=== PATIENT | male | born 1960 | race American Indian/Alaskan Native ===

== ENCOUNTER 2021-05-23 12:27 | Inpatient (IN) | payer SELFPAY ==
[2021-05-23] MEDS ORDERED: ASPIRIN 325 MG TAB PO ONE (13:05)
[2021-05-23] MEDS ORDERED: NITROGLYCERIN 0.4 MG TAB SUBL SL ONE (13:05)
[2021-05-23] MEDS ORDERED: MORPHINE 4 MG/1 ML INJ IV ONE (13:06)
[2021-05-23] MEDS ORDERED: ONDANSETRON 4 MG/2 ML INJ IV ONE (13:06)
[2021-05-23] MEDS ORDERED: PANTOPRAZOLE 40 MG INJ IV ONE (13:06)
--- NOTE | 2021-05-23 13:09 | Emergency Department Report ---
ED Chest Pain HPI - General Chief Complaint: Chest Pain Stated Complaint: CHEST PAIN PUI?: Yes Time Seen by Provider: 05/23/21 12:59 Source: patient, RN notes reviewed, old records reviewed Mode of arrival: Ambulatory Limitations: No Limitations - History of Present Illness Initial Comments: The patient was evaluated in the emergency department for symptoms described in the history of present illness. He/she was evaluated in the context of the global COVID-19 pandemic, which necessitated consideration that the patient might be at risk for infection with the virus that causes COVID-19. Institutional protocols and algorithms that pertain to the evaluation of patients at risk for COVID-19 are in a state of rapid change based on information released by regulatory bodies including the CDC and federal and state organizations. These policies and algorithms were followed during the patient's care in the emergency department. Please note that these policies, procedures and recommendations changed on a rapid basis. The patient is a 60-year-old gentleman. He is not known to myself previously. He typically follows at [place]. His past medical history includes hypertension, heart disease with stent, on aspirin and Plavix, he is COVID-19 vaccinated. He presents to the ER today with sudden onset nontraumatic central, and right-sided chest pain, associate with shortness of breath, nausea and diaphoresis. He denies travel, surgery, immobilization, DVT/PE risk factors. He states his pain "feels just like my last heart attack." The patient denies loss of taste and smell. He has chronic 4 pillow orthopnea. Symptoms have been going on for the past 2 to 3 hours. He denies taking erectile dysfunction medication. He felt improved with rest and position MD Complaint: chest pain -: Sudden, hour(s) Onset: other (Associated with sexual activity) Pain Location: substernal, right chest Pain Radiation: back Severity scale (0 -10): 10 Quality: similar to prior CA Consistency: constant Improves With: rest Worsens With: movement Treatments Prior to Arrival: aspirin Aspirin use within the Past 7 Days: (1) Yes - Related Data On Oral Contraceptives: No Home Medications Medication Instructions Recorded Confirmed Last Taken Atorvastatin Calcium [Lipitor] 80 mg PO DAILY 05/23/21 05/24/21 Unknown Clopidogrel [Plavix] 75 mg PO QDAY 05/23/21 05/23/21 Unknown Losartan [Cozaar] 100 mg PO QDAY 05/23/21 05/23/21 Unknown Spironolactone [Aldactone] 25 mg PO QDAY 05/23/21 05/23/21 Unknown carvediloL [Coreg] 25 mg PO BID 05/23/21 05/23/21 Unknown Allergies Allergy/AdvReac Type Severity Reaction Status Date / Time No Known Allergies Allergy Verified 04/12/14 20:08 Heart Score - HEART Score History: Moderately suspicious EKG: Non-specific Age: 45-65 Risk factors: > 3 risk factors or hx of atherosclerotic disease Troponin: < normal limit HEART Score: 5 - EKG Read Time Time EKG Completed: 12:37 EKG Read Time: 12:37 - Critical Actions Critical Actions: 4-6 pts:12-16.6% risk of adverse cardiac event. Should be admitted ED Review of Systems ROS: Stated complaint: CHEST PAIN Other details as noted in HPI Constitutional: diaphoresis, malaise. denies: fever Eyes: denies: eye discharge Respiratory: shortness of breath Cardiovascular: chest pain Gastrointestinal: denies: abdominal pain, vomiting, diarrhea Musculoskeletal: back pain Neurological: headache, weakness Psychiatric: anxiety Hematological/Lymphatic: denies: easy bleeding ED Past Medical Hx - Past Medical History Hx Hypertension: Yes - Social History Smoking Status: Current Every Day Smoker Substance Use Type: Alcohol - Medications Home Medications: Home Medications Medication Instructions Recorded Confirmed Last Taken Type Atorvastatin Calcium [Lipitor] 80 mg PO DAILY 05/23/21 05/24/21 Unknown History Clopidogrel [Plavix] 75 mg PO QDAY 05/23/21 05/23/21 Unknown History Losartan [Cozaar] 100 mg PO QDAY 05/23/21 05/23/21 Unknown History Spironolactone [Aldactone] 25 mg PO QDAY 05/23/21 05/23/21 Unknown History carvediloL [Coreg] 25 mg PO BID 05/23/21 05/23/21 Unknown History ED Physical Exam - General Limitations: No Limitations, Physical Limitation General appearance: alert, anxious, in distress, obese - Head Head exam: Present: atraumatic, normocephalic - Eye Eye exam: Present: normal appearance, EOMI. Absent: nystagmus - ENT ENT exam: Present: normal exam, normal orophraynx, mucous membranes moist, normal external ear exam - Neck Neck exam: Present: normal inspection, full ROM. Absent: tenderness, meningismus - Respiratory Respiratory exam: Present: respiratory distress, rhonchi - Cardiovascular Cardiovascular Exam: Present: normal rhythm, tachycardia. Absent: bradycardia, irregular rhythm, normal heart sounds, systolic murmur, diastolic murmur, rubs, gallop - GI/Abdominal GI/Abdominal exam: Present: soft. Absent: distended, tenderness, guarding, rebound, rigid, pulsatile mass - Rectal Rectal exam: Present: deferred - Extremities Exam Extremities exam: Present: normal inspection, full ROM, other (2+ pulses noted in the bilateral upper and lower extremities. There is no palpable cord. negative Homans sign. Muscular compartments are soft. The pelvis is stable.). Absent: pedal edema, calf tenderness - Back Exam Back exam: Present: normal inspection, full ROM. Absent: tenderness, CVA tenderness (R), CVA tenderness (L), paraspinal tenderness, vertebral tenderness - Neurological Exam Neurological exam: Present: alert, oriented X3, other (No facial droop. Tongue midline. Extraocular movements intact bilaterally. Facial sensation intact to light touch in V1, V2, V3 distribution bilaterally. 5 and a 5 strength in 4 extremities. Sensation intact to light touch in 4 extremities.) - Psychiatric Psychiatric exam: Present: anxious - Skin Skin exam: Present: warm, dry, intact, normal color. Absent: rash ED Course Vital Signs 05/23/21 05/23/21 05/23/21 12:31 13:33 13:42 Temperature 97.6 F Pulse Rate 114 H 91 H 88 Respiratory 18 20 14 Rate Blood Pressure Blood Pressure 211/141 175/120 [Right] O2 Sat by Pulse 92 97 97 Oximetry 05/23/21 05/23/21 05/23/21 13:45 14:01 14:15 Temperature Pulse Rate 93 H 89 94 H Respiratory 13 25 H 26 H Rate Blood Pressure 175/120 175/120 175/120 Blood Pressure [Right] O2 Sat by Pulse 96 98 98 Oximetry 05/23/21 05/23/21 05/23/21 14:31 14:33 14:39 Temperature Pulse Rate 94 H 94 H 94 H Respiratory 15 16 15 Rate Blood Pressure 152/104 152/104 Blood Pressure 152/104 [Right] O2 Sat by Pulse 96 95 Oximetry 05/23/21 05/23/21 05/23/21 14:45 15:01 15:03 Temperature Pulse Rate 85 93 H Respiratory 28 H 15 14 Rate Blood Pressure 152/104 179/118 Blood Pressure [Right] O2 Sat by Pulse 96 97 Oximetry 05/23/21 05/23/21 05/23/21 15:07 15:15 15:21 Temperature Pulse Rate 94 H 89 88 Respiratory 17 14 Rate Blood Pressure 152/104 179/118 Blood Pressure 175/112 [Right] O2 Sat by Pulse 95 100 Oximetry 05/23/21 05/23/21 05/23/21 15:31 15:45 16:01 Temperature Pulse Rate 90 88 85 Respiratory 19 24 23 Rate Blood Pressure 178/133 178/133 153/102 Blood Pressure [Right] O2 Sat by Pulse 96 97 94 Oximetry 05/23/21 05/23/21 05/23/21 16:15 16:31 16:45 Temperature Pulse Rate 81 71 77 Respiratory 9 L 14 20 Rate Blood Pressure 153/102 133/78 133/78 Blood Pressure [Right] O2 Sat by Pulse 97 97 96 Oximetry 05/23/21 05/23/21 05/23/21 17:01 17:06 17:15 Temperature Pulse Rate 76 74 72 Respiratory 15 14 22 Rate Blood Pressure 148/87 148/87 Blood Pressure 148/87 [Right] O2 Sat by Pulse 96 97 95 Oximetry 05/23/21 05/23/21 05/23/21 17:31 17:45 18:01 Temperature Pulse Rate 79 Respiratory 15 22 10 L Rate Blood Pressure 146/86 146/86 162/118 Blood Pressure [Right] O2 Sat by Pulse 98 96 97 Oximetry 05/23/21 05/23/21 05/23/21 18:15 18:31 19:59 Temperature Pulse Rate Respiratory 14 24 Rate Blood Pressure 162/118 136/82 136/82 Blood Pressure [Right] O2 Sat by Pulse 95 96 100 Oximetry 05/23/21 05/23/21 05/23/21 20:01 20:11 20:21 Temperature Pulse Rate 76 Respiratory 14 Rate Blood Pressure 153/84 153/84 153/84 Blood Pressure 153/84 [Right] O2 Sat by Pulse 97 99 99 Oximetry 05/23/21 05/23/21 05/23/21 20:31 20:41 20:51 Temperature Pulse Rate Respiratory Rate Blood Pressure 151/92 151/92 151/92 Blood Pressure [Right] O2 Sat by Pulse 99 99 98 Oximetry 05/23/21 05/23/21 05/23/21 21:01 21:11 21:21 Temperature Pulse Rate Respiratory Rate Blood Pressure 145/86 145/86 145/86 Blood Pressure [Right] O2 Sat by Pulse 98 98 97 Oximetry 05/23/21 05/23/21 05/23/21 21:31 21:41 21:51 Temperature Pulse Rate Respiratory Rate Blood Pressure 152/85 152/85 152/85 Blood Pressure [Right] O2 Sat by Pulse 99 99 98 Oximetry 05/23/21 05/23/21 22:01 22:10 Temperature Pulse Rate Respiratory Rate Blood Pressure 147/90 147/90 Blood Pressure [Right] O2 Sat by Pulse 98 98 Oximetry - Reevaluation(s) Reevaluation #1: 05/23/21 14:10 Differential diagnosis, including but not limited to: Acute coronary syndrome, flash pulmonary edema, acute coronary syndrome, flash pulmonary edema, hypertensive emergency/urgency, pneumonia, COVID-19, pericarditis, myocarditis Assessment and plan: 60-year-old gentleman, who denies DVT/PE risk factors, who is low risk by Wells criteria for pulmonary embolism, with acute chest pain, shortness of breath, states this is similar to prior CA. Patient is found to be hypoxic, and has crackles and rales. Initially very concern for flash pulmonary edema, given hypertension and the aforementioned. He is brought back to room 8 immediately. X-ray the chest more suggestive of pneumonia rather than congestive heart failure. In addition, the patient's blood pressure is improved, now 175/120 systolic. His O2 sat is improved. His EKG is abnormal, but not consistent with a STEMI. Patient's EKG from today, and prior EKG are transmitted to our health careers instructor, Dr. Hirsch, who also has personally evaluated these EKGs, and we are in agreement that this patient does not require emergency activation a cardiac catheterization lab. Given hypoxia, hypertension, chest pain, multiple medical comorbidities, patient will have a COVID work-up/rule out, in addition to being treated for hypertensive emergency, acute chest pain, and presumed community-acquired pneumonia. Hydralazine for blood pressure, aspirin, as needed nitroglycerin, ceftriaxone, azithromycin, steroids, plan to admit this patient to the medical service for supportive care, once initial diagnostics have resulted. I discussed this plan of care with the patient. He is agreeable to the plan of care 05/23/21 17:47 Admitted to the medical service under the care of Dr. Duque. BECKA score - Becka Score Age > 65: (0) No Aspirin use within the Past 7 Days: (1) Yes 3 or more CAD Risk Factors: (1) Yes 2 or more Angina events in past 24 hrs: (1) Yes Known CAD with more than 50% Stenosis: (0) No Elevated Cardiac Markers: (0) No ST Deviation Greater than 0.5mm: (0) No BECKA Score: 3 ED Medical Decision Making - Lab Data Result diagrams: 05/24/21 08:00 05/24/21 07:41 Vital Signs 05/23/21 05/23/21 05/23/21 12:31 13:33 13:42 Temperature 97.6 F Pulse Rate 114 H 91 H 88 Respiratory 18 20 14 Rate Blood Pressure 211/141 175/120 [Right] O2 Sat by Pulse 92 97 97 Oximetry Lab Results 05/23/21 05/23/21 05/23/21 Range/Units 13:05 13:05 13:05 WBC 5.8 (4.5-11.0) K/mm3 RBC 5.18 H (3.65-5.03) M/mm3 Hgb 15.1 (11.8-15.2) gm/dl Hct 46.4 H (35.5-45.6) % MCV 90 (84-94) fl MCH 29 (28-32) pg MCHC 33 (32-34) % RDW 13.9 (13.2-15.2) % Plt Count 157 (140-440) K/mm3 Lymph % (Auto) 21.0 (13.4-35.0) % Creek % (Auto) 7.9 H (0.0-7.3) % Eos % (Auto) 3.3 (0.0-4.3) % Baso % (Auto) 1.0 (0.0-1.8) % Lymph # (Auto) 1.2 (1.2-5.4) K/mm3 Creek # (Auto) 0.5 (0.0-0.8) K/mm3 Eos # (Auto) 0.2 (0.0-0.4) K/mm3 Baso # (Auto) 0.1 (0.0-0.1) K/mm3 Seg Neutrophils % 66.8 (40.0-70.0) % Seg Neutrophils # 3.9 (1.8-7.7) K/mm3 PT 12.7 (12.2-14.9) Sec. INR 0.86 L (0.87-1.13) D-Dimer 421.90 H (0-234) ng/mlDDU Sodium 145 (137-145) mmol/L Potassium 4.2 (3.6-5.0) mmol/L Chloride 108.0 H (98-107) mmol/L Carbon Dioxide 27 (22-30) mmol/L Anion Gap 14 mmol/L BUN 17 (9-20) mg/dL Creatinine 1.3 (0.8-1.3) mg/dL Estimated GFR > 60 ml/min BUN/Creatinine Ratio 13 % Glucose 99 (75-100) mg/dL Calcium 9.8 (8.4-10.2) mg/dL Magnesium (1.7-2.3) mg/dL Total Bilirubin 0.80 (0.1-1.2) mg/dL AST 18 (5-40) units/L ALT 25 (7-56) units/L Alkaline Phosphatase 70 (35-129) units/L Lactate Dehydrogenase 188 H (91-180) units/L Total Creatine Kinase (55-170) units/L Troponin T < 0.010 (0.00-0.029) ng/mL C-Reactive Protein 0.10 (0.00-1.30) mg/dL NT-Pro-B Natriuret Pep (0-900) pg/mL Total Protein 8.0 (6.3-8.2) g/dL Albumin 4.4 (3.9-5) g/dL Albumin/Globulin Ratio 1.2 % 05/23/21 Range/Units 13:06 WBC (4.5-11.0) K/mm3 RBC (3.65-5.03) M/mm3 Hgb (11.8-15.2) gm/dl Hct (35.5-45.6) % MCV (84-94) fl MCH (28-32) pg MCHC (32-34) % RDW (13.2-15.2) % Plt Count (140-440) K/mm3 Lymph % (Auto) (13.4-35.0) % Creek % (Auto) (0.0-7.3) % Eos % (Auto) (0.0-4.3) % Baso % (Auto) (0.0-1.8) % Lymph # (Auto) (1.2-5.4) K/mm3 Creek # (Auto) (0.0-0.8) K/mm3 Eos # (Auto) (0.0-0.4) K/mm3 Baso # (Auto) (0.0-0.1) K/mm3 Seg Neutrophils % (40.0-70.0) % Seg Neutrophils # (1.8-7.7) K/mm3 PT (12.2-14.9) Sec. INR (0.87-1.13) D-Dimer (0-234) ng/mlDDU Sodium (137-145) mmol/L Potassium (3.6-5.0) mmol/L Chloride (98-107) mmol/L Carbon Dioxide (22-30) mmol/L Anion Gap mmol/L BUN (9-20) mg/dL Creatinine (0.8-1.3) mg/dL Estimated GFR ml/min BUN/Creatinine Ratio % Glucose (75-100) mg/dL Calcium (8.4-10.2) mg/dL Magnesium 1.80 (1.7-2.3) mg/dL Total Bilirubin (0.1-1.2) mg/dL AST (5-40) units/L ALT (7-56) units/L Alkaline Phosphatase (35-129) units/L Lactate Dehydrogenase (91-180) units/L Total Creatine Kinase 192 H (55-170) units/L Troponin T (0.00-0.029) ng/mL C-Reactive Protein (0.00-1.30) mg/dL NT-Pro-B Natriuret Pep 1272 H (0-900) pg/mL Total Protein (6.3-8.2) g/dL Albumin (3.9-5) g/dL Albumin/Globulin Ratio % - EKG Data -: EKG Interpreted by Mo EKG shows normal: sinus rhythm Rate: normal - EKG Data 05/23/21 14:10 The EKG is interpreted at 12: 37 Sinus rhythm, rate 103 bpm, tachycardia. Left axis deviation. QTc 427 ms. Left ventricular hypertrophy. Motion artifact. Q waves noted in the inferior leads. When compared to prior EKG from 2013, left axis deviation appears to be new. Poor R wave progression appears to be chronic. EKG today is not a STEMI. - Radiology Data Radiology results: report reviewed, image reviewed CHEST 2 VIEWS INDICATION: Chest Pain. COMPARISON: 9. FINDINGS: Support devices: None. Heart: Within normal limits. Lungs/Pleura: Infiltrate at the right mid/lower zone. No significant pleural effusion. IMPRESSION: Right-sided pneumonia. Signer Name: Clifton Cole MD Signed: 05/23/2021 12:22 PM Workstation Name: [id number] Critical care attestation.: If time is entered above; I have spent that time in minutes in the direct care of this critically ill patient, excluding procedure time. ED Disposition Clinical Impression: Acute chest pain, Hypertensive urgency, Suspected COVID-19 virus infection, Pul monary infiltrate Disposition: ADMITTED INPATIENT Is pt being admited?: Yes Does the pt Need Aspirin: No Condition: Good
--- NOTE | 2021-05-23 13:26 | XRay Report ---
CHEST 2 VIEWS INDICATION: Chest Pain. COMPARISON: 9. FINDINGS: Support devices: None. Heart: Within normal limits. Lungs/Pleura: Infiltrate at the right mid/lower zone. No significant pleural effusion. IMPRESSION: Right-sided pneumonia. Signer Name: Clifton Cole MD Signed: 05/23/2021 1:22 PM Workstation Name: [id number]
[2021-05-23] MEDS ORDERED: AZITHROMYCIN/NS 500 MG/250 ML 500 MG/250 ML BAG IV ONE (13:44)
[2021-05-23] MEDS ORDERED: dexAMETHasone 4 MG/ML VIAL IV ONE (13:44)
[2021-05-23] MEDS ORDERED: cefTRIAXone/NS 1 GM/50 ML 1 GM/50 ML BAG IV ONE (13:44)
[2021-05-23] MEDS ORDERED: hydrALAZINE 20 MG/1 ML INJ IV ONE (13:51)
[2021-05-23] MEDS ORDERED: NITROGLYCERIN DRIP 50 MG/250 ML BOTTLE IV SCH (14:00)
[2021-05-23 14:03] LABS: Basophils # (Auto) 0.1 K/mm3 (0.0-0.1); Eosinophils # (Auto) 0.2 K/mm3 (0.0-0.4); Eosinophils % (Auto) 3.3 % (0.0-4.3); Hematocrit 46.4 % (35.5-45.6); Hemoglobin 15.1 gm/dl (11.8-15.2); Lymphocytes # (Auto) 1.2 K/mm3 (1.2-5.4); Mean Corpuscular HGB Conc 33 % (32-34); Mean Corpuscular Volume 90 fl (84-94); Monocytes # (Auto) 0.5 K/mm3 (0.0-0.8); Monocytes % (Auto) 7.9 % (0.0-7.3); Platelet Count 157 K/mm3 (140-440); Red Blood Count 5.18 M/mm3 (3.65-5.03); Red Cell Distribution Width 13.9 % (13.2-15.2)
[2021-05-23] MEDS ORDERED: SODIUM CHLORIDE 0.9% 500 ML 500 ML IV ONE (14:07)
[2021-05-23 14:10] LABS: INR 0.86 (0.87-1.13)
[2021-05-23 14:33] LABS: Alanine Aminotransferase 25 units/L (7-56); Albumin 4.4 g/dL (3.9-5); BUN/Creatinine Ratio 13; Blood Urea Nitrogen 17 mg/dL (9-20); Calcium 9.8 mg/dL (8.4-10.2); Hemolysis Index 7
[2021-05-23] MEDS ORDERED: ACETAMINOPHEN 325 MG TAB PO PRN (18:33)
[2021-05-23] MEDS ORDERED: oxyCODONE /ACETAMINOPHEN 5-325MG TAB PO PRN (18:33)
[2021-05-23] MEDS ORDERED: ALBUTEROL 2.5 MG/3 ML NEBU IH PRN (18:33)
[2021-05-23] MEDS ORDERED: ONDANSETRON 4 MG/2 ML INJ IV PRN (18:33)
[2021-05-23] MEDS ORDERED: HYDROmorphone 1 MG/1 ML INJ IV PRN (18:33)
--- NOTE | 2021-05-23 18:42 | History and Physical Report ---
History of Present Illness Chief complaint: I feel terrible History of present illness: 60 YO Male with HTN, HLD, Nicotine Dependence, ETOH Dependence, CAD S/P Stent Placement on DAPT presents to ED for evaluation. Patient reports "I feel terrible. Patient states that he has experienced decreased exercise tolerance, fatigue, malaise, body aches, shortness of breath, dry cough over the past 1 week with persistent and worsening symptoms over the same timeframe. Patient also acknowledges sudden onset pain in his chest. Patient states that pain is localized to the right side of his chest, associated with shortness of breath, nausea, and diaphoresis. Patient acknowledges decreased exercise tolerance, orthopnea, peripheral nocturnal dyspnea, dyspnea on exertion, as well as dyspnea at rest. EMS was notified and upon arrival the patient was found to be in distress and subsequently transported to [facility] for further care and evaluation of the aforementioned symptoms. The patient was seen and evaluated in the e mergency department. All lab and imaging studies reviewed. Patient found to have a pulse oximetry of 89% on room air which is consistent with acute hypoxemic respiratory failure. Chest x-ray revealed bilateral pneumonia. Patient also found to have clinical symptoms consistent with CHF decompensation, as well as angina at rest. Patient admitted to telemetry and initiated on pneumonia protocol, ACS protocol, as well as CHF protocol. Patient denies fever, chills, productive cough, skin rash, recent ill contact, or known exposure to COVID-19. Patient is fully vaccinated against COVID-19. Past History Past Medical History: hypertension, hyperlipidemia, other (See HPI) Past Surgical History: Other (Cardiac stent placement) Social history: single, smoking, alcohol abuse Family history: diabetes, hypertension Medications and Allergies Allergies Allergy/AdvReac Type Severity Reaction Status Date / Time No Known Allergies Allergy Verified 04/12/14 20:08 Home Medications Medication Instructions Recorded Confirmed Last Taken Type Atorvastatin Calcium [Lipitor] 80 mg PO 05/23/21 Unknown History Clopidogrel [Plavix] 75 mg PO QDAY 05/23/21 05/23/21 Unknown History Losartan [Cozaar] 100 mg PO QDAY 05/23/21 05/23/21 Unknown History Spironolactone [Aldactone] 25 mg PO QDAY 05/23/21 05/23/21 Unknown History carvediloL [Coreg] 25 mg PO BID 05/23/21 05/23/21 Unknown History Active Meds: Active Medications Acetaminophen (Acetaminophen 325 Mg Tab) 650 mg PO Q4H PRN PRN Reason: Pain MILD(1-3)/Fever >100.5/COOK Albuterol (Albuterol 2.5 Mg/3 Ml Nebu) 2.5 mg IH Q4HRT PRN PRN Reason: Shortness Of Breath Carvedilol (Carvedilol 25 Mg Tab) 25 mg PO BID [facility] Clopidogrel Bisulfate (Clopidogrel 75 Mg Tab) 75 mg PO QDAY [facility] Hydromorphone HCl (Hydromorphone 1 Mg/1 Ml Inj) 0.5 mg IV Q23H PRN PRN Reason: Pain , Severe (7-10) Ceftriaxone Sodium (Rocephin/Ns 2 Gm/100 Ml) 2 gm in 100 mls @ 200 mls/hr IV Q24H [facility]; Protocol Azithromycin (Zithromax/Ns) 500 mg in 250 mls @ 250 mls/hr IV Q24H [facility]; Protocol Miscellaneous Medication (Atorvastatin Calcium [Lipitor]) 80 mg PO DAILY [facility] Miscellaneous Medication (Losartan [Cozaar]) 100 mg PO QDAY [facility] Ondansetron HCl (Ondansetron 4 Mg/2 Ml Inj) 4 mg IV Q8H PRN PRN Reason: Nausea And Vomiting Oxycodone/Acetaminophen (Oxycodone /Acetaminophen 5-325mg Tab) 1 tab PO Q16H PRN PRN Reason: Pain, Moderate (4-6) Sodium Chloride (Sodium Chloride 0.9% 10 Ml Flush Syringe) 10 ml IV BID [facility] Sodium Chloride (Sodium Chloride 0.9% 10 Ml Flush Syringe) 10 ml IV PRN PRN PRN Reason: LINE FLUSH Spironolactone (Spironolactone 25 Mg Tab) 25 mg PO QDAY [facility] Exam - Constitutional Vitals: Temp Pulse Resp BP Pulse Ox 97.6 F 74 14 148/87 97 05/23/21 12:31 05/23/21 17:06 05/23/21 17:06 05/23/21 17:06 05/23/21 17:06 HEART Score - HEART Score EKG: Non-specific Age: 45-65 Risk factors: > 3 risk factors or hx of atherosclerotic disease Troponin: Troponin T < 0.010 ng/mL (0.00-0.029) 05/23/21 14:40 Troponin: < normal limit - Critical Actions Critical Actions: 4-6 pts:12-16.6% risk of adverse cardiac event. Should be admitted Results - Labs CBC & Chem 7: 05/23/21 13:05 05/23/21 13:05 Labs: Abnormal lab results 05/23/21 05/23/21 05/23/21 Range/Units 13:05 13:05 13:05 RBC 5.18 H (3.65-5.03) M/mm3 Hct 46.4 H (35.5-45.6) % [place] % (Auto) 7.9 H (0.0-7.3) % INR 0.86 L (0.87-1.13) D-Dimer 421.90 H (0-234) ng/mlDDU Chloride 108.0 H (98-107) mmol/L Lactate Dehydrogenase 188 H (91-180) units/L Total Creatine Kinase (55-170) units/L NT-Pro-B Natriuret Pep (0-900) pg/mL 05/23/21 Range/Units 13:06 RBC (3.65-5.03) M/mm3 Hct (35.5-45.6) % [place] % (Auto) (0.0-7.3) % INR (0.87-1.13) D-Dimer (0-234) ng/mlDDU Chloride (98-107) mmol/L Lactate Dehydrogenase (91-180) units/L Total Creatine Kinase 192 H (55-170) units/L NT-Pro-B Natriuret Pep 1272 H (0-900) pg/mL Assessment and Plan - Patient Problems (1) Acute hypoxemic respiratory failure Current Visit: Yes Status: Acute Plan to address problem: Chest x-ray, supplemental oxygen, pulse oximetry, nebulizer therapy, will consider high flow supplemental oxygen if patient is unable to maintain pulse oximetry on supplemental oxygen via nasal cannula. (2) Pneumonia Current Visit: Yes Status: Acute Plan to address problem: Pneumonia protocol: Chest x-ray, CBC, CMP, supplemental oxygen, pulse oximetry, IV antibiotic therapy, pulse oximetry, blood culture. (3) Suspected COVID-19 virus infection Current Visit: Yes Status: Acute Plan to address problem: Coronavirus protocol: Supplemental oxygen, pulse oximetry, IV antibiotic therapy, IV steroid therapy, vitamin C therapy, vitamin D therapy, zinc therapy, prophylactic anticoagulation. (4) CHF (congestive heart failure) Current Visit: Yes Status: Acute Qualifiers: Heart failure type: systolic Heart failure chronicity: acute Qualified Code(s): I50.21 - Acute systolic (congestive) heart failure Plan to address problem: Strict I's/O, daily weight, afterload reduction, blood pressure control, supplemental oxygen, pulse oximetry, thyroid panel, magnesium level, e chocardiogram ordered and is pending at time of admission, diuresis, cardiology team consulted. (5) Accelerated hypertension Current Visit: Yes Status: Acute Plan to address problem: Monitor blood pressure every shift, continue medical management. (6) DVT prophylaxis Current Visit: Yes Status: Acute Plan to address problem: SCD to bilateral lower extremities while in bed, prophylactic anticoagulation (7) Advance care planning Current Visit: Yes Status: Acute Plan to address problem: Disease education conducted, care plan discussed, diagnosis discussed, prognosis discussed, patient is full code, patient acknowledges understanding and agreement with care plan, +30 minutes.
[2021-05-23] MEDS ORDERED: AZITHROMYCIN/NS 500 MG/250 ML 500 MG/250 ML BAG IV SCH (19:00)
[2021-05-23] MEDS ORDERED: LORazepam 2 MG/ML VIAL IV PRN (19:44)
[2021-05-23] MEDS: cefTRIAXone/NS 2 GM/100 ML 2 GM/100 ML BAG IV SCH (20:57)
[2021-05-23 21:03] LABS: Free T4 (Free Thyroxine) 1.16 ng/dL (0.76-1.46)
[2021-05-23] MEDS: carvediloL 25 MG TAB PO SCH (22:48)
--- NOTE | 2021-05-24 08:13 | Progress Note ---
Assessment and Plan Assessment and plan: #Chest pain-resolved #Coronary artery disease status post stent placement #History of [place] -Troponin negative x3, EKG without acute changes -will continue Lipitor, Coreg, Plavix and ASA -Cardiology plan for stress test Thursday #Acute hypoxic respiratory failure -Resolved -Patient not requiring supplemental O2 at this time -Likely secondary to pneumonia -COVID PCR negative #Pneumonia -Chest XR showed right middle lobe pneumonia -Continue azithromycin and rocephin #Heart failure with reduced ejection fraction -Chronic, currently not in acute exacerbation -NTproBNP 1272 -Patient currently on GDMT will continue -Echocardiogram pending -Cardiology following, assistance appreciated #Elevated D-dimer -D-dimer 4-1.9 -will order CTA to rule out PE as contributor to chest pain #Medication noncompliance -Patient reports not taking all his medications as prescribed -Counseled on importance of taking DAPT faithfully, patient voiced understanding Disposition Plan: continue medical management History Interval history: Patient currently chest pain-free. Has no complaints at this time. Hospitalist Physical - Physical exam Narrative exam: GENERAL: Well-developed well-nourished. In no acute distress. HEENT: Normocephalic. Atraumatic. CHEST/LUNGS: CTAB on room air HEART/CARDIOVASCULAR: RRR. No murmur, rubs or gallops appreciated. ABDOMEN: +BS. NT/ND. NEURO: No focal motor deficit. Follows all commands. EXTREMITIES: No cyanosis, clubbing or edema. PSYCH: Cooperative. - Constitutional Vitals: Temp Pulse Resp BP Pulse Ox 98.6 F 74 20 143/83 100 05/23/21 22:44 05/24/21 02:17 05/23/21 22:44 05/24/21 02:17 05/23/21 23:00 HEART Score - HEART Score EKG: Non-specific Age: 45-65 Risk factors: > 3 risk factors or hx of atherosclerotic disease Troponin: Troponin T < 0.010 ng/mL (0.00-0.029) 05/23/21 19:53 Troponin: < normal limit - Critical Actions Critical Actions: 4-6 pts:12-16.6% risk of adverse cardiac event. Should be admitted Results - Labs CBC & Chem 7: 05/24/21 08:00 05/24/21 07:41 Labs: Laboratory Last Values WBC 5.8 K/mm3 (4.5-11.0) 05/23/21 13:05 RBC 5.18 M/mm3 (3.65-5.03) H 05/23/21 13:05 Hgb 15.1 gm/dl (11.8-15.2) 05/23/21 13:05 Hct 46.4 % (35.5-45.6) H 05/23/21 13:05 MCV 90 fl (84-94) 05/23/21 13:05 MCH 29 pg (28-32) 05/23/21 13:05 MCHC 33 % (32-34) 05/23/21 13:05 RDW 13.9 % (13.2-15.2) 05/23/21 13:05 Plt Count 157 K/mm3 (140-440) 05/23/21 13:05 Lymph % (Auto) 21.0 % (13.4-35.0) 05/23/21 13:05 [place] % (Auto) 7.9 % (0.0-7.3) H 05/23/21 13:05 Eos % (Auto) 3.3 % (0.0-4.3) 05/23/21 13:05 Baso % (Auto) 1.0 % (0.0-1.8) 05/23/21 13:05 Lymph # (Auto) 1.2 K/mm3 (1.2-5.4) 05/23/21 13:05 [place] # (Auto) 0.5 K/mm3 (0.0-0.8) 05/23/21 13:05 Eos # (Auto) 0.2 K/mm3 (0.0-0.4) 05/23/21 13:05 Baso # (Auto) 0.1 K/mm3 (0.0-0.1) 05/23/21 13:05 Seg Neutrophils % 66.8 % (40.0-70.0) 05/23/21 13:05 Seg Neutrophils # 3.9 K/mm3 (1.8-7.7) 05/23/21 13:05 PT 12.7 Sec. (12.2-14.9) 05/23/21 13:05 INR 0.86 (0.87-1.13) L 05/23/21 13:05 D-Dimer 421.90 ng/mlDDU (0-234) H 05/23/21 13:05 Sodium 145 mmol/L (137-145) 05/23/21 13:05 Potassium 4.2 mmol/L (3.6-5.0) 05/23/21 13:05 Chloride 108.0 mmol/L (98-107) H 05/23/21 13:05 Carbon Dioxide 27 mmol/L (22-30) 05/23/21 13:05 Anion Gap 14 mmol/L 05/23/21 13:05 BUN 17 mg/dL (9-20) 05/23/21 13:05 Creatinine 1.3 mg/dL (0.8-1.3) 05/23/21 13:05 Estimated GFR > 60 ml/min 05/23/21 13:05 BUN/Creatinine Ratio 13 % 05/23/21 13:05 Glucose 99 mg/dL (75-100) 05/23/21 13:05 POC Glucose 126 mg/dL (70-105) H 05/24/21 07:51 Lactic Acid 1.10 mmol/L (0.7-2.0) 05/23/21 14:40 Calcium 9.8 mg/dL (8.4-10.2) 05/23/21 13:05 Magnesium 1.70 mg/dL (1.7-2.3) 05/23/21 19:53 Ferritin 68.8 ng/mL (30.0-300.0) 05/23/21 14:40 Total Bilirubin 0.80 mg/dL (0.1-1.2) 05/23/21 13:05 AST 18 units/L (5-40) 05/23/21 13:05 ALT 25 units/L (7-56) 05/23/21 13:05 Alkaline Phosphatase 70 units/L (35-129) 05/23/21 13:05 Lactate Dehydrogenase 188 units/L (91-180) H 05/23/21 13:05 Total Creatine Kinase 192 units/L (55-170) H 05/23/21 13:06 Troponin T < 0.010 ng/mL (0.00-0.029) 05/23/21 19:53 C-Reactive Protein 0.10 mg/dL (0.00-1.30) 05/23/21 13:05 NT-Pro-B Natriuret Pep 1272 pg/mL (0-900) H 05/23/21 13:06 Total Protein 8.0 g/dL (6.3-8.2) 05/23/21 13:05 Albumin 4.4 g/dL (3.9-5) 05/23/21 13:05 Albumin/Globulin Ratio 1.2 % 05/23/21 13:05 Procalcitonin < 0.05 ng/mL (<0.15) 05/23/21 14:40 TSH 0.587 mlU/mL (0.270-4.200) 05/23/21 19:53 Free T4 1.16 ng/dL (0.76-1.46) 05/23/21 19:53 Microbiology: Microbiology 05/23/21 14:40 Peripheral/Venous Blood Culture - Preliminary Culture in Progress 05/23/21 14:40 Peripheral/Venous Blood Culture - Preliminary Culture in Progress [place]/IV: Voiding Method Toilet Active Medications - Current Medications Current Medications: Generic Name Dose Route Start Last Admin Trade Name Freq PRN Reason Stop Dose Admin Acetaminophen 650 mg 05/23/21 18:33 Acetaminophen 325 Mg Tab PO Q4H PRN Pain MILD(1-3)/Fever >100.5/COOK Albuterol 2.5 mg 05/23/21 18:33 Albuterol 2.5 Mg/3 Ml Nebu IH Q4HRT PRN Shortness Of Breath Atorvastatin Calcium 80 mg 05/23/21 22:00 05/23/21 22:48 Atorvastatin 40 Mg Tab PO 80 mg QHS KAYLYNN Administration Azithromycin 500 mg 05/24/21 18:00 Azithromycin 250 Mg Tab PO 05/27/21 18:01 QPM [facility] Protocol Carvedilol 25 mg 05/23/21 22:00 05/23/21 22:48 Carvedilol 25 Mg Tab PO 25 mg BID KAYLYNN Administration Clopidogrel Bisulfate 75 mg 05/24/21 10:00 Clopidogrel 75 Mg Tab PO QDAY [facility] Hydromorphone HCl 0.5 mg 05/23/21 18:33 Hydromorphone 1 Mg/1 Ml Inj IV Q23H PRN Pain , Severe (7-10) Ceftriaxone Sodium 2 gm in 100 mls @ 200 mls/hr 05/23/21 19:00 05/23/21 20:57 Rocephin/Ns 2 Gm/100 Ml IV 05/27/21 19:29 200 mls/hr Q24H KAYLYNN Administration Protocol Lorazepam 2 mg 05/23/21 19:44 Lorazepam 2 Mg/Ml Vial IV Q1HR PRN CIWA-Ar 8-15 Losartan Potassium 100 mg 05/24/21 10:00 Losartan 50 Mg Tab PO QDAY [facility] Ondansetron HCl 4 mg 05/23/21 18:33 Ondansetron 4 Mg/2 Ml Inj IV Q8H PRN Nausea And Vomiting Oxycodone/Acetaminophen 1 tab 05/23/21 18:33 Oxycodone /Acetaminophen 5-325mg Tab PO Q16H PRN Pain, Moderate (4-6) Pneumococcal Polyvalent Vaccine 0.5 ml 05/25/21 12:00 Pneumococcal 23 Valent 0.5 Ml Vial IM 05/25/21 12:01 .ONCE ONE Sodium Chloride 10 ml 05/23/21 22:00 05/23/21 22:49 Sodium Chloride 0.9% 10 Ml Flush Syringe IV 10 ml BID KAYLYNN Administration Sodium Chloride 10 ml 05/23/21 18:33 Sodium Chloride 0.9% 10 Ml Flush Syringe IV PRN PRN LINE FLUSH Spironolactone 25 mg 05/24/21 10:00 Spironolactone 25 Mg Tab PO QDAY [facility]
[2021-05-24 08:28] LABS: Basophils % (Auto) 0.3 % (0.0-1.8); Eosinophils % (Auto) 0.1 % (0.0-4.3); Hematocrit 42.6 % (35.5-45.6); Hemoglobin 14.2 gm/dl (11.8-15.2); Lymphocytes # (Auto) 0.9 K/mm3 (1.2-5.4); Lymphocytes % (Auto) 10.7 % (13.4-35.0); Mean Corpuscular HGB Conc 33 % (32-34); Mean Corpuscular Volume 90 fl (84-94); Monocytes # (Auto) 0.4 K/mm3 (0.0-0.8); Monocytes % (Auto) 5.4 % (0.0-7.3); Platelet Count 152 K/mm3 (140-440); Red Blood Count 4.72 M/mm3 (3.65-5.03)
[2021-05-24 08:51] LABS: Alanine Aminotransferase 21 units/L (7-56); BUN/Creatinine Ratio 15; Blood Urea Nitrogen 18 mg/dL (9-20); Calcium 9.6 mg/dL (8.4-10.2); Hemolysis Index 9
[2021-05-24] MEDS: SPIRONOLACTONE 25 MG TAB PO SCH (09:33)
[2021-05-24] MEDS: LOSARTAN 50 MG TAB PO SCH (09:33)
[2021-05-24] MEDS: CLOPIDOGREL 75 MG TAB PO SCH (09:33)
[2021-05-24] MEDS ORDERED: NON-FORMULARY EACH (Atorvastatin Calcium [Lipitor] 80 MG Tablet) PO SCH (10:00)
[2021-05-24] MEDS ORDERED: NON-FORMULARY EACH (Losartan [Cozaar] 100 MG Tablet) PO SCH (10:00)
[2021-05-24] MEDS: carvediloL 25 MG TAB PO SCH ×3 (10:35→23:12)
--- NOTE | 2021-05-24 13:03 | Consultation ---
History of Present Illness Consult date: 05/24/21 Requesting physician: SOTERO JEFFERY Consult reason: chest pain History of present illness: Patient is 60-year-old male with a past medical history of coronary artery disease s/p PCI, history of NH on dual antiplatelet therapy, hypertension, history of CHF, who came to the hospital with a complaint of shortness of breath for 1 day prior to admission. Patient reports that yesterday following intercourse he suddenly developed shortness of breath, cough, and some slight chest. He describes the chest pain as a dullness but not tight, squeezing, or pressure. And it was located on a singular point in the center of his chest. He rated the pain 5 out of 10. Patient reports previously he felt fine with no complaints. Patient was brought to the ED and found to have bilateral pneumonia and to be hypoxic with pulse ox of 89%. At time of interview patient reports being completely chest pain-free and states he feels much better. Patient denies fever chills, nausea, vomiting, palpitations, or lightheadedness. Patient previously known to our practice however patient follows with [facility]. Cardiology is consulted for chest pain. Past History Past Medical History: CAD, hypertension, hyperlipidemia, other (See HPI) Past Surgical History: Other (Cardiac stent placement) Social history: single, smoking, alcohol abuse Family history: diabetes, hypertension Medications and Allergies Allergies Allergy/AdvReac Type Severity Reaction Status Date / Time No Known Allergies Allergy Verified 04/12/14 20:08 Home Medications Medication Instructions Recorded Confirmed Last Taken Type Atorvastatin Calcium [Lipitor] 80 mg PO DAILY 05/23/21 05/24/21 Unknown History Clopidogrel [Plavix] 75 mg PO QDAY 05/23/21 05/23/21 Unknown History Losartan [Cozaar] 100 mg PO QDAY 05/23/21 05/23/21 Unknown History Spironolactone [Aldactone] 25 mg PO QDAY 05/23/21 05/23/21 Unknown History carvediloL [Coreg] 25 mg PO BID 05/23/21 05/23/21 Unknown History Active Meds: Active Medications Acetaminophen (Acetaminophen 325 Mg Tab) 650 mg PO Q4H PRN PRN Reason: Pain MILD(1-3)/Fever >100.5/COOK Albuterol (Albuterol 2.5 Mg/3 Ml Nebu) 2.5 mg IH Q4HRT PRN PRN Reason: Shortness Of Breath Aspirin (Aspirin 81 Mg Tab Chew) 81 mg PO QDAY [facility] Atorvastatin Calcium (Atorvastatin 40 Mg Tab) 80 mg PO QHS [facility] Last Admin: 05/23/21 22:48 Dose: 80 mg Azithromycin (Azithromycin 250 Mg Tab) 500 mg PO QPM [facility]; Protocol Stop: 05/27/21 18:01 Carvedilol (Carvedilol 25 Mg Tab) 25 mg PO BID [facility] Last Admin: 05/24/21 10:48 Dose: 25 mg Clopidogrel Bisulfate (Clopidogrel 75 Mg Tab) 75 mg PO QDAY [facility] Last Admin: 05/24/21 09:33 Dose: 75 mg Hydromorphone HCl (Hydromorphone 1 Mg/1 Ml Inj) 0.5 mg IV Q23H PRN PRN Reason: Pain , Severe (7-10) Ceftriaxone Sodium (Rocephin/Ns 2 Gm/100 Ml) 2 gm in 100 mls @ 200 mls/hr IV Q24H [facility]; Protocol Stop: 05/27/21 19:29 Last Admin: 05/23/21 20:57 Dose: 200 mls/hr Lorazepam (Lorazepam 2 Mg/Ml Vial) 2 mg IV Q1HR PRN PRN Reason: CIWA-Ar 8-15 Losartan Potassium (Losartan 50 Mg Tab) 100 mg PO QDAY [facility] Last Admin: 05/24/21 09:33 Dose: 100 mg Ondansetron HCl (Ondansetron 4 Mg/2 Ml Inj) 4 mg IV Q8H PRN PRN Reason: Nausea And Vomiting Oxycodone/Acetaminophen (Oxycodone /Acetaminophen 5-325mg Tab) 1 tab PO Q16H PRN PRN Reason: Pain, Moderate (4-6) Pneumococcal Polyvalent Vaccine (Pneumococcal 23 Valent 0.5 Ml Vial) 0.5 ml IM .ONCE ONE Stop: 05/25/21 12:01 Sodium Chloride (Sodium Chloride 0.9% 10 Ml Flush Syringe) 10 ml IV BID [facility] Last Admin: 05/24/21 09:33 Dose: 10 ml Sodium Chloride (Sodium Chloride 0.9% 10 Ml Flush Syringe) 10 ml IV PRN PRN PRN Reason: LINE FLUSH Spironolactone (Spironolactone 25 Mg Tab) 25 mg PO QDAY [facility] Last Admin: 05/24/21 09:33 Dose: 25 mg Review of Systems Constitutional: no weight loss, no weight gain, no fever, no chills Cardiovascular: chest pain, shortness of breath, no orthopnea, no palpitations, no dyspnea on exertion Respiratory: cough, shortness of breath, dyspnea on exertion Gastrointestinal: no abdominal pain, no nausea, no vomiting, no diarrhea Musculoskeletal: no neck stiffness, no shooting arm pain, no arm numbness/tingling Integumentary: no rash, no pruritis, no redness Neurological: no transient paralysis Psychiatric: no anxiety, no memory loss Endocrine: no cold intolerance, no heat intolerance Hematologic/Lymphatic: no easy bruising, no easy bleeding Physical Examination Vital Signs Temp Pulse Resp BP Pulse Ox 97.6 F 114 H 18 211/141 92 05/23/21 12:31 05/23/21 12:31 05/23/21 12:31 05/23/21 12:31 05/23/21 12:31 General appearance: no acute distress HEENT: Positive: PERRL Neck: Positive: trachea midline Cardiac: Positive: Reg Rate and Rhythm Lungs: Positive: Decreased Breath Sounds Neuro: Positive: Grossly Intact Abdomen: Positive: Soft Skin: Negative: Rash, Suspicious Lesions, Ulceration Extremities: Present: upper extr. pulses. Absent: edema Results 05/24/21 08:00 05/24/21 07:41 Cardiac Enzymes 05/23/21 05/24/21 Range/Units 13:05 07:41 AST 18 19 (5-40) units/L Lactate Dehydrogenase 188 H (91-180) units/L Coagulation 05/23/21 Range/Units 13:05 PT 12.7 (12.2-14.9) Sec. INR 0.86 L (0.87-1.13) CBC 05/23/21 05/24/21 Range/Units 13:05 08:00 WBC 5.8 8.3 (4.5-11.0) K/mm3 RBC 5.18 H 4.72 (3.65-5.03) M/mm3 Hgb 15.1 14.2 (11.8-15.2) gm/dl Hct 46.4 H 42.6 (35.5-45.6) % Plt Count 157 152 (140-440) K/mm3 Lymph # (Auto) 1.2 0.9 L (1.2-5.4) K/mm3 [place] # (Auto) 0.5 0.4 (0.0-0.8) K/mm3 Eos # (Auto) 0.2 0.0 (0.0-0.4) K/mm3 Baso # (Auto) 0.1 0.0 (0.0-0.1) K/mm3 Comprehensive Metabolic Panel 05/23/21 05/24/21 Range/Units 13:05 07:41 Sodium 145 139 (137-145) mmol/L Potassium 4.2 4.1 (3.6-5.0) mmol/L Chloride 108.0 H 103.8 (98-107) mmol/L Carbon Dioxide 27 24 (22-30) mmol/L BUN 17 18 (9-20) mg/dL Creatinine 1.3 1.2 (0.8-1.3) mg/dL Glucose 99 139 H (75-100) mg/dL Calcium 9.8 9.6 (8.4-10.2) mg/dL AST 18 19 (5-40) units/L ALT 25 21 (7-56) units/L Alkaline Phosphatase 70 59 (35-129) units/L Total Protein 8.0 7.3 (6.3-8.2) g/dL Albumin 4.4 4.0 (3.9-5) g/dL - Imaging and Cardiology Echo: pending EKG interpretations - Telemetry EKG Rhythm: Sinus Rhythm - EKG Sinus rhythms and dysrhythmias: sinus rhythm Myocardial infarction: inferior NH (old age inde Assessment and Plan Patient is 60-year-old male with a past medical history of coronary artery di sease s/p PCI, history of NH on dual antiplatelet therapy, hypertension, history of CHF, who came to the hospital with a complaint of shortness of breath for 1 day prior to admission. Chest pain Pneumonia Coronary artery disease s/p PCI History of [place] Hypertension CHF Outpatient medications: Lipitor 80 mg p.o. nightly, Coreg 25 mg p.o. twice daily, spironolactone 25 mg p.o. daily, losartan 100 mg p.o. daily, Plavix 75 mg p.o. daily, aspirin Plan: EKG shows sinus rhythm 65 inferior infarct age undetermined. No acute ischemic changes. Troponins negative x3. Patient currently chest pain-free. AMI ruled out BNP noted to be elevated however patient appears euvolemic on exam and is currently denying any difficulty in breathing. Echo pending Agree with resuming outpatient medications Due to abnormalities in EKG and patient history we will plan for stress on Thursday Patient does report that he had recent stress at [facility]. Records were requested Patient seen in conjunction with Dr. Hirsch who agrees with this plan of care - Patient Problems (1) CAD (coronary artery disease) Current Visit: Yes Status: Acute (2) Acute chest pain Current Visit: Yes Status: Acute (3) Acute hypoxemic respiratory failure Current Visit: Yes Status: Acute (4) CHF (congestive heart failure) Current Visit: Yes Status: Acute Qualifiers: Heart failure type: systolic Heart failure chronicity: acute Qualified Code(s): I50.21 - Acute systolic (congestive) heart failure (5) Pneumonia Current Visit: Yes Status: Acute
[2021-05-24] MEDS: AZITHROMYCIN 250 MG TAB PO SCH (17:43)
[2021-05-24] MEDS: cefTRIAXone/NS 2 GM/100 ML 2 GM/100 ML BAG IV SCH (18:00)
[2021-05-25] MEDS: SPIRONOLACTONE 25 MG TAB PO SCH (09:13)
[2021-05-25] MEDS: ASPIRIN 81 MG TAB CHEW PO SCH (09:13)
[2021-05-25] MEDS: carvediloL 25 MG TAB PO SCH ×2 (09:13→22:35)
[2021-05-25] MEDS: CLOPIDOGREL 75 MG TAB PO SCH (09:13)
[2021-05-25] MEDS: LOSARTAN 50 MG TAB PO SCH (09:13)
--- NOTE | 2021-05-25 09:14 | Cat Scan Report ---
CTA CHEST WITH IV CONTRAST INDICATION: Chest pain, evaluate for PE. TECHNIQUE: Axial CT images were obtained through the chest after injection of 99 cc Omnipaque 350 IV contrast. 3 plane MIP reconstructions were produced. All CT scans at this location are performed using CT dose r eduction for ALARA by means of automated exposure control. COMPARISON: 2 views of the chest from 05/23/2021. FINDINGS: PULMONARY ARTERIES: No pulmonary emboli. AORTA AND ARTERIES: No acute findings. Normal caliber of the aorta with mild aortic atherosclerosis. There is mild coronary atherosclerosis with prior stenting of the LAD. HEART: No significant abnormality. LYMPH NODES:No significant adenopathy. TRACHEA AND BRONCHI:No significant abnormality. LUNGS: No suspicious consolidation, nodule or mass. No pneumothorax or pleural effusion. ADDITIONAL FINDINGS: None. UPPER ABDOMEN: No acute findings. BONES: No significant osseous abnormality. IMPRESSION: 1. No CT evidence for pulmonary embolism. 2. No acute findings. Signer Name: Pk Luque MD Signed: 05/25/2021 9:10 AM Workstation Name: [id number]
[2021-05-25] MEDS ORDERED: PNEUMOCOCCAL 23 Valent 0.5 ML VIAL IM ONE (12:00)
[2021-05-25] MEDS ORDERED: FLU VACC QUAD 2021-22(6MOS UP)/PF 60 MCG/0.5 ML SYRINGE IM ONE (12:00)
--- NOTE | 2021-05-25 13:11 | Progress Note ---
Assessment and Plan Assessment and plan: #Chest pain-resolved #Coronary artery disease status post stent placement #History of [place] -Troponin negative x3, EKG without acute changes -will continue Lipitor, Coreg, Plavix and ASA -Cardiology plan for stress test Thursday #Acute hypoxic respiratory failure -Resolved -Patient not requiring supplemental O2 at this time -Likely secondary to pneumonia -COVID PCR negative #Pneumonia -Chest XR showed right middle lobe pneumonia -Continue azithromycin and rocephin #Heart failure with reduced ejection fraction -Chronic, currently not in acute exacerbation -TTE 05/25: LVEF 35-40%; possible chronic organized thrombus at apex -NTproBNP 1272 -Patient currently on GDMT will continue -Cardiology following, assistance appreciated #Elevated D-dimer -CTA negative for PE #Medication noncompliance -Patient reports not taking all his medications as prescribed -Counseled on importance of taking DAPT faithfully, patient voiced understanding Disposition Plan: continue medical management History Interval history: Patient currently chest pain-free. Has no complaints at this time. Hospitalist Physical - Physical exam Narrative exam: GENERAL: Well-developed well-nourished. In no acute distress. HEENT: Normocephalic. Atraumatic. CHEST/LUNGS: CTAB on room air HEART/CARDIOVASCULAR: RRR. No murmur, rubs or gallops appreciated. ABDOMEN: +BS. NT/ND. NEURO: No focal motor deficit. Follows all commands. EXTREMITIES: No cyanosis, clubbing or edema. PSYCH: Cooperative. - Constitutional Vitals: Temp Pulse Resp BP Pulse Ox 98.2 F 69 16 155/90 98 05/24/21 22:00 05/24/21 23:12 05/24/21 22:00 05/24/21 23:12 05/25/21 07:16 General appearance: Present: no acute distress HEART Score - HEART Score EKG: Non-specific Age: 45-65 Risk factors: > 3 risk factors or hx of atherosclerotic disease Troponin: Troponin T < 0.010 ng/mL (0.00-0.029) 05/23/21 19:53 Troponin: < normal limit - Critical Actions Critical Actions: 4-6 pts:12-16.6% risk of adverse cardiac event. Should be admitted Results - Labs CBC & Chem 7: 05/24/21 08:00 05/24/21 07:41 Labs: Laboratory Last Values WBC 8.3 K/mm3 (4.5-11.0) 05/24/21 08:00 RBC 4.72 M/mm3 (3.65-5.03) 05/24/21 08:00 Hgb 14.2 gm/dl (11.8-15.2) 05/24/21 08:00 Hct 42.6 % (35.5-45.6) 05/24/21 08:00 MCV 90 fl (84-94) 05/24/21 08:00 MCH 30 pg (28-32) 05/24/21 08:00 MCHC 33 % (32-34) 05/24/21 08:00 RDW 14.0 % (13.2-15.2) 05/24/21 08:00 Plt Count 152 K/mm3 (140-440) 05/24/21 08:00 Lymph % (Auto) 10.7 % (13.4-35.0) L 05/24/21 08:00 [place] % (Auto) 5.4 % (0.0-7.3) 05/24/21 08:00 Eos % (Auto) 0.1 % (0.0-4.3) 05/24/21 08:00 Baso % (Auto) 0.3 % (0.0-1.8) 05/24/21 08:00 Lymph # (Auto) 0.9 K/mm3 (1.2-5.4) L 05/24/21 08:00 [place] # (Auto) 0.4 K/mm3 (0.0-0.8) 05/24/21 08:00 Eos # (Auto) 0.0 K/mm3 (0.0-0.4) 05/24/21 08:00 Baso # (Auto) 0.0 K/mm3 (0.0-0.1) 05/24/21 08:00 Seg Neutrophils % 83.5 % (40.0-70.0) H 05/24/21 08:00 Seg Neutrophils # 6.9 K/mm3 (1.8-7.7) 05/24/21 08:00 PT 12.7 Sec. (12.2-14.9) 05/23/21 13:05 INR 0.86 (0.87-1.13) L 05/23/21 13:05 D-Dimer 421.90 ng/mlDDU (0-234) H 05/23/21 13:05 Sodium 139 mmol/L (137-145) 05/24/21 07:41 Potassium 4.1 mmol/L (3.6-5.0) 05/24/21 07:41 Chloride 103.8 mmol/L (98-107) 05/24/21 07:41 Carbon Dioxide 24 mmol/L (22-30) 05/24/21 07:41 Anion Gap 15 mmol/L 05/24/21 07:41 BUN 18 mg/dL (9-20) 05/24/21 07:41 Creatinine 1.2 mg/dL (0.8-1.3) 05/24/21 07:41 Estimated GFR > 60 ml/min 05/24/21 07:41 BUN/Creatinine Ratio 15 % 05/24/21 07:41 Glucose 139 mg/dL (75-100) H 05/24/21 07:41 POC Glucose 102 mg/dL (70-105) 05/24/21 15:42 Lactic Acid 1.10 mmol/L (0.7-2.0) 05/23/21 14:40 Calcium 9.6 mg/dL (8.4-10.2) 05/24/21 07:41 Magnesium 1.70 mg/dL (1.7-2.3) 05/23/21 19:53 Ferritin 68.8 ng/mL (30.0-300.0) 05/23/21 14:40 Total Bilirubin 0.60 mg/dL (0.1-1.2) 05/24/21 07:41 AST 19 units/L (5-40) 05/24/21 07:41 ALT 21 units/L (7-56) 05/24/21 07:41 Alkaline Phosphatase 59 units/L (35-129) 05/24/21 07:41 Lactate Dehydrogenase 188 units/L (91-180) H 05/23/21 13:05 Total Creatine Kinase 192 units/L (55-170) H 05/23/21 13:06 Troponin T < 0.010 ng/mL (0.00-0.029) 05/23/21 19:53 C-Reactive Protein 0.10 mg/dL (0.00-1.30) 05/23/21 13:05 NT-Pro-B Natriuret Pep 1272 pg/mL (0-900) H 05/23/21 13:06 Total Protein 7.3 g/dL (6.3-8.2) 05/24/21 07:41 Albumin 4.0 g/dL (3.9-5) 05/24/21 07:41 Albumin/Globulin Ratio 1.2 % 05/24/21 07:41 Procalcitonin < 0.05 ng/mL (<0.15) 05/23/21 14:40 TSH 0.587 mlU/mL (0.270-4.200) 05/23/21 19:53 Free T4 1.16 ng/dL (0.76-1.46) 05/23/21 19:53 Coronavirus (PCR) Negative (Negative) 05/24/21 Unknown Microbiology: Microbiology 05/23/21 14:40 Peripheral/Venous Blood Culture - Preliminary NO GROWTH AFTER 24 HOURS 05/23/21 14:40 Peripheral/Venous Blood Culture - Preliminary NO GROWTH AFTER 24 HOURS [place]/IV: Voiding Method Toilet Active Medications - Current Medications Current Medications: Generic Name Dose Route Start Last Admin Trade Name Freq PRN Reason Stop Dose Admin Acetaminophen 650 mg 05/23/21 18:33 Acetaminophen 325 Mg Tab PO Q4H PRN Pain MILD(1-3)/Fever >100.5/COOK Albuterol 2.5 mg 05/23/21 18:33 Albuterol 2.5 Mg/3 Ml Nebu IH Q4HRT PRN Shortness Of Breath Aspirin 81 mg 05/25/21 10:00 05/25/21 09:13 Aspirin 81 Mg Tab Chew PO 81 mg QDAY KAYLYNN Administration Atorvastatin Calcium 80 mg 05/23/21 22:00 05/24/21 23:06 Atorvastatin 40 Mg Tab PO 80 mg QHS KAYLYNN Administration Azithromycin 500 mg 05/24/21 18:00 05/24/21 17:43 Azithromycin 250 Mg Tab PO 05/27/21 18:01 500 mg QPM KAYLYNN Administration Protocol Carvedilol 25 mg 05/23/21 22:00 05/25/21 09:13 Carvedilol 25 Mg Tab PO 25 mg BID KAYLYNN Administration Clopidogrel Bisulfate 75 mg 05/24/21 10:00 05/25/21 09:13 Clopidogrel 75 Mg Tab PO 75 mg QDAY KAYLYNN Administration Hydromorphone HCl 0.5 mg 05/23/21 18:33 Hydromorphone 1 Mg/1 Ml Inj IV Q23H PRN Pain , Severe (7-10) Ceftriaxone Sodium 2 gm in 100 mls @ 200 mls/hr 05/23/21 19:00 05/24/21 18:00 Rocephin/Ns 2 Gm/100 Ml IV 05/27/21 19:29 200 mls/hr Q24H KAYLYNN Administration Protocol Lorazepam 2 mg 05/23/21 19:44 Lorazepam 2 Mg/Ml Vial IV Q1HR PRN CIWA-Ar 8-15 Losartan Potassium 100 mg 05/24/21 10:00 05/25/21 09:13 Losartan 50 Mg Tab PO 100 mg QDAY KAYLYNN Administration Ondansetron HCl 4 mg 05/23/21 18:33 Ondansetron 4 Mg/2 Ml Inj IV Q8H PRN Nausea And Vomiting Oxycodone/Acetaminophen 1 tab 05/23/21 18:33 Oxycodone /Acetaminophen 5-325mg Tab PO Q16H PRN Pain, Moderate (4-6) Sodium Chloride 10 ml 05/23/21 22:00 05/25/21 09:13 Sodium Chloride 0.9% 10 Ml Flush Syringe IV 10 ml BID KAYLYNN Administration Sodium Chloride 10 ml 05/23/21 18:33 Sodium Chloride 0.9% 10 Ml Flush Syringe IV PRN PRN LINE FLUSH Spironolactone 25 mg 05/24/21 10:00 05/25/21 09:13 Spironolactone 25 Mg Tab PO 25 mg QDAY KAYLYNN Administration
--- NOTE | 2021-05-25 16:43 | Progress Note ---
Assessment and Plan Acute Respiratory Failure (resolved) Pneumonia Chest Pain Hypertensive Urgency (resolved) CAD s/p [place], s/p PCI (3 years ago per pt report) Chronic HFrEF (EF 35-40%) ?Chronic LV Thrombus HTN Medical Non-Compliance (due to financial constraints) Plan: Plan for Lexiscan stress MPI on Thursday. NPO after midnight Thursday. Discontinue Aldactone d/t gynecomastia. Start PO Lasix 20mg daily in AM. Continue other present GDMT for HF. May add Hydralazine if antihypertensive optimization is needed. Continue DAPT (ASA/Plavix) and statin. Pt is typically followed by [facility]. Records requested. Pt seen in conjunction with Dr. Grijalva, who agrees with the assessment and plan of care. - Patient Problems (1) Chest pain Current Visit: Yes Status: Acute (2) Pneumonia Current Visit: Yes Status: Acute (3) CAD (coronary artery disease) Current Visit: Yes Status: Chronic (4) Stented coronary artery Current Visit: Yes Status: Chronic Subjective Date of service: 05/25/21 Principal diagnosis: Chest Pain Interval history: Still with complaints of intermittent left-sided chest pain, though pain-free upon assessment. Denies SOB. No additional complaints. SR 50-60s on tele. Objective Last Vital Signs Temp 98.2 F 05/24/21 22:00 Pulse 69 05/24/21 23:12 Resp 16 05/24/21 22:00 BP 155/90 05/24/21 23:12 Pulse Ox 98 05/25/21 07:16 - Physical Examination General: No Apparent Distress HEENT: Positive: EOMI, Normocephaly Neck: Positive: neck supple, trachea midline. Negative: JVD/HJR Cardiac: Positive: Reg Rate and Rhythm, S1/S2 Lungs: Positive: clear to auscultation Neuro: Positive: Grossly Intact Abdomen: Positive: Soft Skin: Negative: Rash Musculoskeletal: No Pain Extremities: Present: lower extr. pulses. Absent: edema - Imaging and Cardiology EKG: report reviewed, image reviewed Nuclear stress test: pending Echo: report reviewed - Telemetry EKG Rhythm: Sinus Rhythm - EKG Sinus rhythms and dysrhythmias: sinus rhythm Chamber hypertrophy or enlargement: left ventricular hypertro Myocardial infarction: inferior [place] (old age inde
[2021-05-25] MEDS: AZITHROMYCIN 250 MG TAB PO SCH (17:43)
[2021-05-25] MEDS: cefTRIAXone/NS 2 GM/100 ML 2 GM/100 ML BAG IV SCH (18:08)
--- NOTE | 2021-05-26 08:32 | Progress Note ---
Assessment and Plan Assessment and plan: #Chest pain-resolved #Coronary artery disease status post stent placement #History of ND -Troponin negative x3, EKG without acute changes -will continue Lipitor, Coreg, Plavix and ASA -Cardiology plan for stress test tomorrow #Acute hypoxic respiratory failure -Resolved -Patient not requiring supplemental O2 at this time -Likely secondary to pneumonia -COVID PCR negative #Pneumonia -Chest XR showed right middle lobe pneumonia -Continue azithromycin and rocephin #Heart failure with reduced ejection fraction -Chronic, currently not in acute exacerbation -TTE 05/25: LVEF 35-40%; possible chronic organized thrombus at apex -NTproBNP 1272 -spironolactone discontinued due to gynecomastia; continue BB + lasix -Cardiology following, assistance appreciated #Hypertension -BP elevated -if uncontrolled, will add hydralazine scheduled #Elevated D-dimer -CTA negative for PE #Medication noncompliance -Patient reports not taking all his medications as prescribed -Counseled on importance of taking DAPT faithfully, patient voiced understanding Disposition Plan: continue medical management History Interval history: Patient currently chest pain-free. Patient has a non-pruritic rash on wrists, palms, soles of feet. Hospitalist Physical - Physical exam Narrative exam: GENERAL: Well-developed well-nourished. In no acute distress. HEENT: Normocephalic. Atraumatic. CHEST/LUNGS: CTAB on room air HEART/CARDIOVASCULAR: RRR. No murmur, rubs or gallops appreciated. ABDOMEN: +BS. NT/ND. SKIN: hypertrophic, hyperpigmented rash on bilateral wrists, ankles NEURO: No focal motor deficit. Follows all commands. EXTREMITIES: No cyanosis, clubbing or edema. PSYCH: Cooperative. - Constitutional Vitals: Temp Pulse Resp BP Pulse Ox 98.0 F 75 20 150/84 99 05/26/21 05:36 05/26/21 05:36 05/26/21 05:36 05/26/21 05:36 05/26/21 07:00 General appearance: Present: no acute distress HEART Score - HEART Score EKG: Non-specific Age: 45-65 Risk factors: > 3 risk factors or hx of atherosclerotic disease Troponin: Troponin T < 0.010 ng/mL (0.00-0.029) 05/23/21 19:53 Troponin: < normal limit - Critical Actions Critical Actions: 4-6 pts:12-16.6% risk of adverse cardiac event. Should be admitted Results - Labs CBC & Chem 7: 05/24/21 08:00 05/26/21 07:38 Labs: Laboratory Last Values WBC 8.3 K/mm3 (4.5-11.0) 05/24/21 08:00 RBC 4.72 M/mm3 (3.65-5.03) 05/24/21 08:00 Hgb 14.2 gm/dl (11.8-15.2) 05/24/21 08:00 Hct 42.6 % (35.5-45.6) 05/24/21 08:00 MCV 90 fl (84-94) 05/24/21 08:00 MCH 30 pg (28-32) 05/24/21 08:00 MCHC 33 % (32-34) 05/24/21 08:00 RDW 14.0 % (13.2-15.2) 05/24/21 08:00 Plt Count 152 K/mm3 (140-440) 05/24/21 08:00 Lymph % (Auto) 10.7 % (13.4-35.0) L 05/24/21 08:00 [place] % (Auto) 5.4 % (0.0-7.3) 05/24/21 08:00 Eos % (Auto) 0.1 % (0.0-4.3) 05/24/21 08:00 Baso % (Auto) 0.3 % (0.0-1.8) 05/24/21 08:00 Lymph # (Auto) 0.9 K/mm3 (1.2-5.4) L 05/24/21 08:00 [place] # (Auto) 0.4 K/mm3 (0.0-0.8) 05/24/21 08:00 Eos # (Auto) 0.0 K/mm3 (0.0-0.4) 05/24/21 08:00 Baso # (Auto) 0.0 K/mm3 (0.0-0.1) 05/24/21 08:00 Seg Neutrophils % 83.5 % (40.0-70.0) H 05/24/21 08:00 Seg Neutrophils # 6.9 K/mm3 (1.8-7.7) 05/24/21 08:00 PT 12.7 Sec. (12.2-14.9) 05/23/21 13:05 INR 0.86 (0.87-1.13) L 05/23/21 13:05 D-Dimer 421.90 ng/mlDDU (0-234) H 05/23/21 13:05 Sodium 139 mmol/L (137-145) 05/24/21 07:41 Potassium 4.1 mmol/L (3.6-5.0) 05/24/21 07:41 Chloride 103.8 mmol/L (98-107) 05/24/21 07:41 Carbon Dioxide 24 mmol/L (22-30) 05/24/21 07:41 Anion Gap 15 mmol/L 05/24/21 07:41 BUN 18 mg/dL (9-20) 05/24/21 07:41 Creatinine 1.2 mg/dL (0.8-1.3) 05/24/21 07:41 Estimated GFR > 60 ml/min 05/24/21 07:41 BUN/Creatinine Ratio 15 % 05/24/21 07:41 Glucose 139 mg/dL (75-100) H 05/24/21 07:41 POC Glucose 102 mg/dL (70-105) 05/24/21 15:42 Lactic Acid 1.10 mmol/L (0.7-2.0) 05/23/21 14:40 Calcium 9.6 mg/dL (8.4-10.2) 05/24/21 07:41 Magnesium 1.70 mg/dL (1.7-2.3) 05/23/21 19:53 Ferritin 68.8 ng/mL (30.0-300.0) 05/23/21 14:40 Total Bilirubin 0.60 mg/dL (0.1-1.2) 05/24/21 07:41 AST 19 units/L (5-40) 05/24/21 07:41 ALT 21 units/L (7-56) 05/24/21 07:41 Alkaline Phosphatase 59 units/L (35-129) 05/24/21 07:41 Lactate Dehydrogenase 188 units/L (91-180) H 05/23/21 13:05 Total Creatine Kinase 192 units/L (55-170) H 05/23/21 13:06 Troponin T < 0.010 ng/mL (0.00-0.029) 05/23/21 19:53 C-Reactive Protein 0.10 mg/dL (0.00-1.30) 05/23/21 13:05 NT-Pro-B Natriuret Pep 1272 pg/mL (0-900) H 05/23/21 13:06 Total Protein 7.3 g/dL (6.3-8.2) 05/24/21 07:41 Albumin 4.0 g/dL (3.9-5) 05/24/21 07:41 Albumin/Globulin Ratio 1.2 % 05/24/21 07:41 Procalcitonin < 0.05 ng/mL (<0.15) 05/23/21 14:40 TSH 0.587 mlU/mL (0.270-4.200) 05/23/21 19:53 Free T4 1.16 ng/dL (0.76-1.46) 05/23/21 19:53 Coronavirus (PCR) Negative (Negative) 05/24/21 Unknown Microbiology: Microbiology 05/23/21 14:40 Peripheral/Venous Blood Culture - Preliminary NO GROWTH AFTER 48 HOURS 05/23/21 14:40 Peripheral/Venous Blood Culture - Preliminary NO GROWTH AFTER 48 HOURS [place]/IV: Voiding Method Toilet Active Medications - Current Medications Current Medications: Generic Name Dose Route Start Last Admin Trade Name Freq PRN Reason Stop Dose Admin Acetaminophen 650 mg 05/23/21 18:33 Acetaminophen 325 Mg Tab PO Q4H PRN Pain MILD(1-3)/Fever >100.5/COOK Albuterol 2.5 mg 05/23/21 18:33 Albuterol 2.5 Mg/3 Ml Nebu IH Q4HRT PRN Shortness Of Breath Aspirin 81 mg 05/25/21 10:00 05/25/21 09:13 Aspirin 81 Mg Tab Chew PO 81 mg QDAY KAYLYNN Administration Atorvastatin Calcium 80 mg 05/23/21 22:00 05/25/21 23:27 Atorvastatin 40 Mg Tab PO 80 mg QHS KAYLYNN Administration Azithromycin 500 mg 05/24/21 18:00 05/25/21 17:43 Azithromycin 250 Mg Tab PO 05/27/21 18:01 500 mg QPM KAYLYNN Administration Protocol Carvedilol 25 mg 05/23/21 22:00 05/25/21 22:35 Carvedilol 25 Mg Tab PO 25 mg BID KALYYNN Administration Clopidogrel Bisulfate 75 mg 05/24/21 10:00 05/25/21 09:13 Clopidogrel 75 Mg Tab PO 75 mg QDAY KAYLYNN Administration Furosemide 20 mg 05/26/21 10:00 Furosemide 20 Mg Tab PO QDAY KAYLYNN Hydromorphone HCl 0.5 mg 05/23/21 18:33 Hydromorphone 1 Mg/1 Ml Inj IV Q23H PRN Pain , Severe (7-10) Ceftriaxone Sodium 2 gm in 100 mls @ 200 mls/hr 05/23/21 19:00 05/25/21 18:08 Rocephin/Ns 2 Gm/100 Ml IV 05/27/21 19:29 200 mls/hr Q24H KAYLYNN Administration Protocol Lorazepam 2 mg 05/23/21 19:44 Lorazepam 2 Mg/Ml Vial IV Q1HR PRN CIWA-Ar 8-15 Losartan Potassium 100 mg 05/24/21 10:00 05/25/21 09:13 Losartan 50 Mg Tab PO 100 mg QDAY KAYLYNN Administration Ondansetron HCl 4 mg 05/23/21 18:33 Ondansetron 4 Mg/2 Ml Inj IV Q8H PRN Nausea And Vomiting Oxycodone/Acetaminophen 1 tab 05/23/21 18:33 Oxycodone /Acetaminophen 5-325mg Tab PO Q16H PRN Pain, Moderate (4-6) Sodium Chloride 10 ml 05/23/21 22:00 05/25/21 23:27 Sodium Chloride 0.9% 10 Ml Flush Syringe IV 10 ml BID KAYLYNN Administration Sodium Chloride 10 ml 05/23/21 18:33 Sodium Chloride 0.9% 10 Ml Flush Syringe IV PRN PRN LINE FLUSH
[2021-05-26 08:41] LABS: BUN/Creatinine Ratio 17; Blood Urea Nitrogen 20 mg/dL (9-20); Calcium 9.2 mg/dL (8.4-10.2); Hemolysis Index 7
[2021-05-26] MEDS: CLOPIDOGREL 75 MG TAB PO SCH (09:13)
[2021-05-26] MEDS: ASPIRIN 81 MG TAB CHEW PO SCH (09:13)
[2021-05-26] MEDS: FUROSEMIDE 20 MG TAB PO SCH (09:13)
[2021-05-26] MEDS: carvediloL 25 MG TAB PO SCH ×2 (09:13→22:11)
[2021-05-26] MEDS: LOSARTAN 50 MG TAB PO SCH (09:13)
[2021-05-26] MEDS: HYDROCORTISONE 2.5% Topical CREAM 20 GM TP SCH ×2 (16:04→22:48)
[2021-05-26] MEDS: AZITHROMYCIN 250 MG TAB PO SCH (17:02)
[2021-05-26] MEDS: cefTRIAXone/NS 2 GM/100 ML 2 GM/100 ML BAG IV SCH (18:06)
--- NOTE | 2021-05-26 18:14 | Progress Note ---
Assessment and Plan Acute Respiratory Failure (resolved) Pneumonia Chest Pain Hypertensive Urgency (resolved) CAD s/p [place], s/p PCI (3 years ago per pt report) Chronic HFrEF (EF 35-40%) ?Chronic LV Thrombus HTN Medical Non-Compliance (due to financial constraints) Plan: Plan for Lexiscan stress MPI in AM. NPO after midnight. Aldactone discontinued d/t gynecomastia. Continue PO Lasix 20mg daily. Continue other present GDMT for HF. May add Hydralazine if antihypertensive optimization is needed. Per review of echo findings with reading physician, there is no indication for oral anticoagulation for LV thrombus. Continue DAPT (ASA/Plavix) and statin. Pt is typically followed by [facility]. Records requested. Pt seen in conjunction with Dr. Grijalva, who agrees with the assessment and plan of care. - Patient Problems (1) Chest pain Current Visit: Yes Status: Acute (2) Pneumonia Current Visit: Yes Status: Acute (3) CAD (coronary artery disease) Current Visit: Yes Status: Chronic (4) Stented coronary artery Current Visit: Yes Status: Chronic Subjective Date of service: 05/26/21 Principal diagnosis: Chest Pain Interval history: Denies any further chest pain overnight or this AM. No additional complaints. Objective Last Vital Signs Temp 98.8 F 05/26/21 13:52 Pulse 60 05/26/21 13:52 Resp 16 05/26/21 13:52 BP 145/100 05/26/21 13:52 Pulse Ox 97 05/26/21 13:52 - Physical Examination General: No Apparent Distress HEENT: Positive: EOMI, Normocephaly Neck: Positive: neck supple, trachea midline. Negative: JVD/HJR Cardiac: Positive: Reg Rate and Rhythm, S1/S2 Lungs: Positive: clear to auscultation Neuro: Positive: Grossly Intact Abdomen: Positive: Soft Skin: Negative: Rash Musculoskeletal: No Pain Extremities: Present: lower extr. pulses. Absent: edema - Labs and Meds Comprehensive Metabolic Panel 05/26/21 Range/Units 07:38 Sodium 136 L (137-145) mmol/L Potassium 3.8 (3.6-5.0) mmol/L Chloride 102.7 (98-107) mmol/L Carbon Dioxide 26 (22-30) mmol/L BUN 20 (9-20) mg/dL Creatinine 1.2 (0.8-1.3) mg/dL Glucose 100 (75-100) mg/dL Calcium 9.2 (8.4-10.2) mg/dL - Imaging and Cardiology EKG: report reviewed, image reviewed Echo: report reviewed - Telemetry EKG Rhythm: Sinus Rhythm - EKG Sinus rhythms and dysrhythmias: sinus rhythm Chamber hypertrophy or enlargement: left ventricular hypertro Myocardial infarction: inferior [place] (old age inde
[2021-05-27] MEDS ORDERED: REGADENOSON 0.4 MG/5 ML INJ IV ONE ×2 (08:24→11:06)
[2021-05-27] MEDS: CLOPIDOGREL 75 MG TAB PO SCH (12:08)
[2021-05-27] MEDS: carvediloL 25 MG TAB PO SCH (12:08)
[2021-05-27] MEDS: FUROSEMIDE 20 MG TAB PO SCH (12:08)
[2021-05-27] MEDS: LOSARTAN 50 MG TAB PO SCH (12:08)
[2021-05-27] MEDS: ASPIRIN 81 MG TAB CHEW PO SCH (12:09)
[2021-05-27] MEDS: HYDROCORTISONE 2.5% Topical CREAM 20 GM TP SCH (12:09)
--- NOTE | 2021-05-27 12:45 | Progress Note ---
Assessment and Plan Patient is 60-year-old male with a past medical history of coronary artery disease s/p PCI, history of HI on dual antiplatelet therapy, hypertension, history of CHF, who came to the hospital with a complaint of shortness of breath for 1 day prior to admission. Acute Respiratory Failure (resolved) Pneumonia Chest Pain Hypertensive Urgency (resolved) CAD s/p [place], s/p PCI (3 years ago per pt report) Chronic HFrEF (EF 35-40%) ?Chronic LV Thrombus HTN Medical Non-Compliance (due to financial constraints) Echo 05/23/2021-EF 35 to 40%. Akinetic apex with akinetic mid and distal septum, also hypokinesis of distal inferior wall noted. Doppler flow pattern suggests impaired LV relaxation. Cannot rule out left ventricular thrombus. Probable chronic organized thrombus at apex noted right ventricular systolic function is normal Lexiscan MPI stress test 05/27/2021-shows large apical defect. No reversible ischemia. Outpatient medications: Lipitor 80 mg p.o. nightly, Coreg 25 mg p.o. twice daily, spironolactone 25 mg p.o. daily, losartan 100 mg p.o. daily, Plavix 75 mg p.o. daily, aspirin Plan: Aldactone discontinued d/t gynecomastia. Continue PO Lasix 20mg daily. Continue other present GDMT for HF. May add Hydralazine if antihypertensive optimization is needed. Per review of echo findings with reading physician, there is no indication for oral anticoagulation for LV thrombus. Continue DAPT (ASA/Plavix) and statin. Cardiac status stable for discharge Pt is typically followed by [facility]. Records requested. Patient should follow-up with their primary websphere commerce consultant in 1 to 2 weeks Pt seen in conjunction with Dr. De La Cruz, who agrees with the assessment and plan of care - Patient Problems (1) CAD (coronary artery disease) Current Visit: Yes Status: Chronic (2) Acute chest pain Current Visit: Yes Status: Acute (3) Acute hypoxemic respiratory failure Current Visit: Yes Status: Acute (4) CHF (congestive heart failure) Current Visit: Yes Status: Acute Qualifiers: Heart failure type: systolic Heart failure chronicity: acute Qualified Code(s): I50.21 - Acute systolic (congestive) heart failure (5) Pneumonia Current Visit: Yes Status: Acute Subjective Date of service: 05/27/21 Principal diagnosis: Chest Pain Interval history: Patient for stress test this a.m. Sinus 60 on the monitor Objective Vital Signs Temp Pulse Resp BP Pulse Ox 05/27/21 09:00 0 L 05/26/21 23:00 97.9 F 56 L 20 148/92 99 05/26/21 22:11 56 L 148/92 05/26/21 21:22 100 05/26/21 17:21 98.4 F 62 16 151/99 99 05/26/21 13:52 98.8 F 60 16 145/100 97 - Physical Examination General: No Apparent Distress HEENT: Positive: EOMI, Normocephaly Neck: Positive: neck supple, trachea midline. Negative: JVD/HJR Cardiac: Positive: Reg Rate and Rhythm Lungs: Positive: Normal Breath Sounds Neuro: Positive: Grossly Intact Abdomen: Positive: Soft Skin: Negative: Rash Musculoskeletal: No Pain Extremities: Present: lower extr. pulses. Absent: edema - Imaging and Cardiology EKG: report reviewed, image reviewed Echo: report reviewed - Telemetry EKG Rhythm: Sinus Rhythm - EKG Sinus rhythms and dysrhythmias: sinus rhythm Chamber hypertrophy or enlargement: left ventricular hypertro Myocardial infarction: inferior [place] (old age inde
[2021-05-27 12:54] VITALS: BP 177/104
--- NOTE | 2021-05-27 13:18 | Discharge Summary ---
Providers - Providers Date of Admission: 05/23/21 18:33 Attending physician: CARINE GROSS MD 05/23/21 13:05 Consult to Cardiology [CONS] Stat Consulting Provider: GILA CRUZ Reason For Exam: acute chest pain 05/27/21 12:16 Consult to Case Management [CONS] Routine Services Needed at Discharge: [employer] Supervisor Additional Physician Instructions: Verify patients insurance is set up per Cardiology Primary care physician: PUFFER TENDER Hospitalization Condition: Good Disposition: 30 STILL A PATIENT Exam - Constitutional Vitals: Temp Pulse Resp BP Pulse Ox 97.7 F 59 L 18 177/104 99 05/27/21 12:11 05/27/21 12:11 05/27/21 12:11 05/27/21 12:11 05/27/21 12:11 Plan Care Plan Goals: Follow-up with your primary refrigerated national truck driver in 1 to 2 weeks. Your stress test did not show any new blockages. Please take all your med ications as they are prescribed. Follow up with: PRIMARY CAREMD [Primary Care Provider] - 3-5 Days Prescriptions: Aspirin [Aspirin BABY CHEW TAB] 81 mg PO QDAY 30 Days #30 tab.chew Amoxicillin/Potassium Clav [Augmentin 875-125 Tablet] 1 each PO Q12H 4 Days #4 tab Azithromycin 500 mg PO DAILY 2 Days #2 tab carvediloL [Coreg] 25 mg PO BID 30 Days #60 tab Losartan [Cozaar] 100 mg PO QDAY 30 Days #30 tab Hydrocortisone 2.5% [Hytone 2.5% CREAM] 1 applic TP Q12HR PRN 30 Days #1 tube PRN Reason: Rash Furosemide [Lasix TAB] 20 mg PO QDAY 30 Days #30 tablet Atorvastatin Calcium [Lipitor] 80 mg PO DAILY 30 Days #30 tab Clopidogrel [Plavix] 75 mg PO QDAY 30 Days #30 tab
[2021-05-27] MEDS ORDERED: SODIUM CHLORIDE 0.9% 50 ML IVPB IV PRN (14:25)
--- NOTE | 2021-05-27 16:58 | Nuclear Medicine Report ---
APPROVED REPORT Exam: Nuclear Stress Test Indication: Chest pain Patient Location: [address] [place] [address] Room #: A362 Ht: 6 ft 2 in Wt: 249 lbs BSA: 2.39 m2 HR: 65 bpmBP: 162/109 mmHgBMI: 31.96 Rhythm: Sinus Rhythm Stress Test Details Stress Test: Pharmacologic stress testing performed using 0.4 mg of regadenoson per 5 mL given IV over 10 seconds. Reason for pharmacologic stress test: physical limitation. HR Resting HR: 55 bpm Max HR Achieved: 98 bpm Max Heart Rate (APMHR): 159.174285 bpm Target HR (85% APMHR): 135.398090 bpm % of APMHR: 61.64 Recovery HR: 84 bpm HR response to stress: Normal HR response to stress BP Resting BP: 152/92 mmHg Max BP: 176/113 mmHg Recovery BP: 169/93 mmHg BP response to stress: Abnormal hypertensive response to stress. ECG Resting ECG: Sinus Rhythm Stress ECG: Sinus Rhythm Arrhythmia: None Recovery ECG: Sinus Rhythm Recovery Arrhythmia: None Clinical Reason for Termination: Completed protocol Stress Symptoms: None NM EXAM: Myocardial Perfusion REST/STRESS Imaging Protocol: Rest Tc-99m/Stress Tc-99m 1 day Resting Data Rest SPECT myocardial perfusion imaging was performed in supine position 45 minutes following the intravenous injection of 10 mCi of Tc-99m Myoview. Time of rest injection: 0700 Date: 05/27/2021 Pharmacologic Stress Pharmacologic stress test was performed by injecting Regadenoson 0.4 mg IV push followed by the intravenous injection of 28 mCi of Tc-99m Myoview. Time of stress injection: 1015 Date: 05/27/2021 Gated Stress SPECT was performed 30 minutes after stress injection. The images were gated to evaluate regional wall motion and calculate left ventricular ejection fraction. Study Data TID = 1.08. Nuclear Conclusion ECG Findings: positive for ischemia Clinical Findings: negative for ischemia Nuclear Findings: negative for ischemia Exercise Capacity: normal Left Ventricular Function: abnormal negative lexiscan large apical infarcate and moderate infarct in anterior apical and inferior apical and ef 23% akinesis of apical and anterior and inferior apical region, no significant ischemia noted
--- NOTE | 2021-05-30 12:46 | Electrocardiograph Report ---
[facility] Test Date: 2021-05-23 Test Time: 12:37:14 Pat Name: KYLE GOMEZ Department: Room: A362 1 Gender: M Group Insurance Specialist: MARIAN : 1960 Requested By: SOTERO JEFFERY Order Number: [id number] Reading MD: Avinash Astudillo Measurements Intervals [place] Rate: 103 P: 67 SD: 162 QRS: -64 QRSD: 90 T: 83 QT: 325 QTc: 427 Interpretive Statements Sinus tachycardia LAE, consider biatrial enlargement Left ventricular hypertrophy Inferior infarct, old Old anterior myocardial infarction No previous ECG available for comparison Electronically Signed On 05-30-2021 12:45:15 EST by Avinash Astudillo
--- NOTE | 2021-05-30 12:56 | Electrocardiograph Report ---
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
== END 2021-05-27 16:05 | disposition home or self-care (01) | DRG 193 ==
LOC: ED 12:27 → 3A 18:33
PROVIDERS: ADMIT Internal Medicine; ATTEND Student in an Organized Health Care Education/Training Program
DX: J18.9 Pneumonia, unspecified organism (principal); J96.01 Acute respiratory failure with hypoxia; I50.23 Acute on chronic systolic (congestive) heart failure; I16.0 Hypertensive urgency; Z20.822 Contact with and (suspected) exposure to COVID-19; I11.0 Hypertensive heart disease with heart failure; F17.200 Nicotine dependence, unspecified, uncomplicated; F10.20 Alcohol dependence, uncomplicated; Y90.9 Presence of alcohol in blood, level not specified; Z83.3 Family history of diabetes mellitus; Z82.49 Family history of ischemic heart disease and other diseases of the circulatory system; I25.10 Atherosclerotic heart disease of native coronary artery without angina pectoris; E78.5 Hyperlipidemia, unspecified; Z91.19 Patient's noncompliance with other medical treatment and regimen; Z79.899 Other long term (current) drug therapy
CPT/HCPCS: 36415; 71046; 71275; 78452; 80048; 80053; 82140; 82550; 82728; 82962; 83615; 83735; 83880; 84145; 84439; 84443; 84484; 85025; 85379; 85610; 86140; 87040; 90686; 90732; 93005; 93010; 93017; 93306; G0378; A9502; C9113; J0360; J0456; J0696; J1100; J2270; J2405; J2785; J7040; Q9967; U0003

== ENCOUNTER 2021-08-22 10:07 | Inpatient (IN) | payer SELFPAY ==
[2021-08-22] MEDS ORDERED: FUROSEMIDE 40 MG/4 ML INJ IV ONE (10:28)
[2021-08-22] MEDS ORDERED: NITROGLYCERIN DRIP 50 MG/250 ML BOTTLE IV SCH (10:30)
--- NOTE | 2021-08-22 10:39 | Electrocardiograph Report ---
[facility] Test Date: 2021-08-22 Test Time: 10:13:54 Pat Name: KYLE GOMEZ Department: Room: Gender: M Card Assembler: NATACHA : 1960 Requested By: ODALYS YBARRA Order Number: [id number] Reading MD: Rafa De La Cruz Measurements Intervals [place] Rate: 95 P: 71 MS: 152 QRS: 3 QRSD: 99 T: 120 QT: 340 QTc: 429 Interpretive Statements Sinus rhythm Ventricular premature complex LAE, consider biatrial enlargement Left ventricular hypertrophy Inferior infarct, old Anterolateral infarct, age indeterminate Compared to ECG 05/24/2021 09:48:51 Ventricular premature complex(es) now present Left ventricular hypertrophy now present Myocardial infarct finding still present Electronically Signed On 08-22-2021 10:38:50 EDT by Rafa De La Cruz
--- NOTE | 2021-08-22 10:41 | Emergency Department Report ---
ED Shortness of Breath HPI - General Chief Complaint: Chest Pain Stated Complaint: CHEST PAIN Time Seen by Provider: 08/22/21 10:11 Source: EMS, old records reviewed Mode of arrival: Stretcher Limitations: Altered Mental Status - History of Present Illness Initial Comments: 61-year-old male with a past medical history of CHF, [place] status post PCI with vladimir nt in the past presents to the hospital complaining of shortness of breath. Patient drove up to the fire department with his son in a car and was resuscitated by fire department and EMS prior to arrival. They report that patient was extremely hypertensive with a room air saturation of 60%, diaphor etic, with respiratory distress, and chest pain. CPAP was initiated at arrival and aspirin 324 was provided. Upon initial arrival patient had depressed mental status was mildly combative and was transitioned to BiPAP. He could follow commands while on BiPAP. IV access obtained and nitroglycerin and Lasix were ordered. As per medical record review patient was admitted here in May for chest pain and had a stress test performed at that time showing areas of chronic ischemia without signs of acute ischemia and EF of 23%. EMS called a code STEMI however, EKG was reviewed by on-call STEMI DrGodwin Astudillo and subsequently compared to previous EKG upon arrival. EKG findings were determined to be chronic without acute signs of ST elevation [place] Patient's current medicines include aspirin 81 mg Furosemide 20 mg daily Carvedilol 25 mg twice daily Clopidogrel 75 mg daily - Related Data Previous Rx's Medication Instructions Recorded Last Taken Type Amoxicillin/Potassium Clav 1 each PO Q12H 4 Days #4 tab 05/27/21 Unknown Rx [Augmentin 875-125 Tablet] Aspirin [Aspirin BABY CHEW TAB] 81 mg PO QDAY 30 Days #30 tab.chew 05/27/21 Unknown Rx Atorvastatin Calcium [Lipitor] 80 mg PO DAILY 30 Days #30 tab 05/27/21 Unknown Rx Azithromycin 500 mg PO DAILY 2 Days #2 tab 05/27/21 Unknown Rx Clopidogrel [Plavix] 75 mg PO QDAY 30 Days #30 tab 05/27/21 Unknown Rx Furosemide [Lasix TAB] 20 mg PO QDAY 30 Days #30 tablet 05/27/21 Unknown Rx Hydrocortisone 2.5% [Hytone 2.5% 1 applic TP Q12HR PRN 30 Days #1 05/27/21 Unknown Rx CREAM] tube Losartan [Cozaar] 100 mg PO QDAY 30 Days #30 tab 05/27/21 Unknown Rx carvediloL [Coreg] 25 mg PO BID 30 Days #60 tab 05/27/21 Unknown Rx Allergies Allergy/AdvReac Type Severity Reaction Status Date / Time No Known Allergies Allergy Verified 04/12/14 20:08 ED Review of Systems ROS: Stated complaint: CHEST PAIN Other details as noted in HPI Comment: Unobtainable due to pts medical conditions ED Past Medical Hx - Past Medical History Hx Hypertension: Yes Hx Heart Attack/AMI: Yes (2018) Hx Congestive Heart Failure: Yes Hx Diabetes: No Hx GERD: Yes Hx Sickle Cell Disease: No Hx Kidney Stones: No Hx Asthma: No Hx COPD: No Hx Tuberculosis: No Hx HIV: No - Surgical History Hx Coronary Stent: Yes (2017) Hx Pacemaker: No - Social History Smoking Status: Current Every Day Smoker Substance Use Type: Alcohol - Medications Home Medications: Home Medications Medication Instructions Recorded Confirmed Last Taken Type Amoxicillin/Potassium Clav 1 each PO Q12H 4 Days #4 tab 05/27/21 Unknown Rx [Augmentin 875-125 Tablet] Aspirin [Aspirin BABY CHEW TAB] 81 mg PO QDAY 30 Days #30 tab.chew 05/27/21 08/22/21 Unknown Rx Atorvastatin Calcium [Lipitor] 80 mg PO DAILY 30 Days #30 tab 05/27/21 Unknown Rx Azithromycin 500 mg PO DAILY 2 Days #2 tab 05/27/21 Unknown Rx Clopidogrel [Plavix] 75 mg PO QDAY 30 Days #30 tab 05/27/21 08/22/21 Unknown Rx Furosemide [Lasix TAB] 20 mg PO QDAY 30 Days #30 tablet 05/27/21 08/22/21 Unknown Rx Hydrocortisone 2.5% [Hytone 2.5% 1 applic TP Q12HR PRN 30 Days #1 05/27/21 Unknown Rx CREAM] tube Losartan [Cozaar] 100 mg PO QDAY 30 Days #30 tab 05/27/21 Unknown Rx carvediloL [Coreg] 25 mg PO BID 30 Days #60 tab 05/27/21 08/22/21 Unknown Rx ED Physical Exam - General Limitations: No Limitations - Other Other exam information: General: Positive respiratory distress Head: Atraumatic Eyes: normal appearance ENT: Moist mucous membranes Neck: Normal appearance, no midline tenderness Chest: Tachypnea, accessory muscle use, bilateral rales CV: Tachycardic regular rhythm Abdomen: Soft, normal bowel sounds, nontender, nondistended, no rebound or guarding Back: Normal inspection Extremity: Normal inspection, full range of motion Neuro: Alert but agitated at times, equal handgrip and foot dorsiflexion, no focal deficit appreciated Psych: Appropriate behavior Skin: Diaphoretic ED Course Vital Signs 08/22/21 08/22/21 08/22/21 10:10 10:23 10:31 Temperature 97.9 F Pulse Rate 88 122 H 123 H Respiratory 24 Rate Blood Pressure 204/144 Blood Pressure 240/140 [Right] O2 Sat by Pulse 60 L 98 98 Oximetry 08/22/21 08/22/21 08/22/21 10:45 11:01 11:15 Temperature Pulse Rate 123 H 94 H 106 H Respiratory Rate Blood Pressure 198/129 210/148 143/104 Blood Pressure [Right] O2 Sat by Pulse 96 95 88 Oximetry 08/22/21 08/22/21 08/22/21 11:31 11:45 12:00 Temperature Pulse Rate 76 51 L 79 Respiratory Rate Blood Pressure 174/126 170/129 166/118 Blood Pressure [Right] O2 Sat by Pulse 83 L 88 91 Oximetry 08/22/21 08/22/21 08/22/21 12:15 13:54 14:01 Temperature Pulse Rate 97 H 92 H 91 H Respiratory Rate Blood Pressure 174/126 Blood Pressure [Right] O2 Sat by Pulse 93 97 97 Oximetry 08/22/21 14:07 Temperature Pulse Rate 86 Respiratory 40 H Rate Blood Pressure Blood Pressure 98/72 [Right] O2 Sat by Pulse 97 Oximetry - Reevaluation(s) Reevaluation #1: 08/22/21 11:33 Patient treated aggressively upon arrival with BiPAP, supplemental oxygen, nitro drip starting at 40 mics per minute, and IV Lasix. Despite this patient began to desat to 85% despite 100% FiO2 and became more agitated and diaphoretic. Decision made to intubate patient - Consultations Consultation #1: 08/22/21 10: 19 a.m. After discussion with Dr. Astudillo deemed that there was no ST elevation [place] and patient does not meet criteria for interval 08/22/21 11:42 Case discussed with Carli VAZQUEZ with uday Loco consult - Intubation Time Out Performed: Yes Sedative: Etomidate Mg Given: 20 Paralytic: Succinylcholine Mg Given: 100 Laryngoscope: Bulmaro Size: 4 ET Tube Size: 7.5 Tube Secured Depth (cm): 22 Tube Secured Location: teeth Tube Placement Confirmation: visualized tube passing t, equal breath sounds bilat, no breath sounds over epi, confirmation by capnometr Patient Tolerated Procedure: well, no complications Intubation Complications: none Additional Comments: Copious frothy sputum during intubation Respiratory instructed to adjust ET tube to 24 at the teeth after chest x-ray review ED Medical Decision Making - Lab Data Result diagrams: 08/22/21 10:30 08/22/21 10:30 Lab Results 08/22/21 08/22/21 08/22/21 Range/Units 10:30 10:30 10:30 WBC 9.3 (4.5-11.0) K/mm3 RBC 5.54 H (3.65-5.03) M/mm3 Hgb 16.4 H (11.8-15.2) gm/dl Hct 52.3 H (35.5-45.6) % MCV 95 H (84-94) fl MCH 30 (28-32) pg MCHC 31 L (32-34) % RDW 13.8 (13.2-15.2) % Plt Count 158 (140-440) K/mm3 Lymph % (Auto) Mid Wife Lymph # (Auto) Mid Wife Seg Neutrophils % Mid Wife PT 14.7 (12.2-14.9) Sec. INR 1.03 (0.87-1.13) APTT 36.5 (24.2-36.6) Sec. ABG pH (7.350-7.450) pH Units ABG pCO2 mm Hg ABG pO2 (80.0-90.0) mm Hg ABG HCO3 (20.0-26.0) mmol/L ABG O2 Saturation (95.0-99.0) % ABG O2 Content (0.0-44) ABG Base Excess (-2.0-3.0) mmol/L ABG Hemoglobin (14.0-18.0) gm/dl ABG Carboxyhemoglobin (0.0-5.0) % ABG Methemoglobin (0.0-1.5) % Oxyhemoglobin (95.0-99.0) % FiO2 % Sodium 143 (137-145) mmol/L Potassium 4.1 (3.6-5.0) mmol/L Chloride 102.2 (98-107) mmol/L Carbon Dioxide 16 L (22-30) mmol/L Anion Gap 29 mmol/L BUN 17 (9-20) mg/dL Creatinine 1.7 H (0.8-1.3) mg/dL Estimated GFR 50 ml/min BUN/Creatinine Ratio 10 % Glucose 255 H (75-100) mg/dL Calcium 9.2 (8.4-10.2) mg/dL Magnesium 2.40 H (1.7-2.3) mg/dL Total Bilirubin 0.50 (0.1-1.2) mg/dL AST 81 H (5-40) units/L ALT 64 H (7-56) units/L Alkaline Phosphatase 82 (35-129) units/L Troponin T < 0.010 (0.00-0.029) ng/mL NT-Pro-B Natriuret Pep 2518 H (0-900) pg/mL Total Protein 7.5 (6.3-8.2) g/dL Albumin 4.2 (3.9-5) g/dL Albumin/Globulin Ratio 1.3 % 04// Range/Units 12:05 WBC (4.5-11.0) K/mm3 RBC (3.65-5.03) M/mm3 Hgb (11.8-15.2) gm/dl Hct (35.5-45.6) % MCV (84-94) fl MCH (28-32) pg MCHC (32-34) % RDW (13.2-15.2) % Plt Count (140-440) K/mm3 Lymph % (Auto) Lymph # (Auto) Seg Neutrophils % PT (12.2-14.9) Sec. INR (0.87-1.13) APTT (24.2-36.6) Sec. ABG pH 7.011 L* (7.350-7.450) pH Units ABG pCO2 84.8 mm Hg ABG pO2 93.2 H (80.0-90.0) mm Hg ABG HCO3 21.0 (20.0-26.0) mmol/L ABG O2 Saturation 93.0 L (95.0-99.0) % ABG O2 Content 21.3 (0.0-44) ABG Base Excess -12.3 L (-2.0-3.0) mmol/L ABG Hemoglobin 16.6 (14.0-18.0) gm/dl ABG Carboxyhemoglobin 1.1 (0.0-5.0) % ABG Methemoglobin 0.8 (0.0-1.5) % Oxyhemoglobin 91.2 L (95.0-99.0) % FiO2 100 % Sodium (137-145) mmol/L Potassium (3.6-5.0) mmol/L Chloride (98-107) mmol/L Carbon Dioxide (22-30) mmol/L Anion Gap mmol/L BUN (9-20) mg/dL Creatinine (0.8-1.3) mg/dL Estimated GFR ml/min BUN/Creatinine Ratio % Glucose (75-100) mg/dL Calcium (8.4-10.2) mg/dL Magnesium (1.7-2.3) mg/dL Total Bilirubin (0.1-1.2) mg/dL AST (5-40) units/L ALT (7-56) units/L Alkaline Phosphatase (35-129) units/L Troponin T (0.00-0.029) ng/mL NT-Pro-B Natriuret Pep (0-900) pg/mL Total Protein (6.3-8.2) g/dL Albumin (3.9-5) g/dL Albumin/Globulin Ratio % - EKG Data -: EKG Interpreted by Me (Previous anterolateral and inferior infarct) EKG shows normal: sinus rhythm, ST-T waves (No STEMI, LVH,) Rate: bradycardia (55) - EKG Data When compared to previous EKG there are: no significant change - Radiology Data Radiology results: report reviewed CHEST 1 VIEW 08/22/2021 10:20 AM INDICATION / CLINICAL INFORMATION: sob. COMPARISON: 05/23/2021 FINDINGS: SUPPORT DEVICES: None. HEART / MEDIASTINUM: Mild prominence of the heart. LUNGS / PLEURA: Hazy airspace opacities are noted within the perihilar chest bilaterally with pulmonary vascular indistinctness. No pneumothorax. ADDITIONAL FINDINGS: No significant additional findings. IMPRESSION: 1. Findings suggesting pulmonary edema. CHEST 1 VIEW 08/22/2021 10:46 AM INDICATION / CLINICAL INFORMATION: ETT placement. COMPARISON: 08/22/2021 FINDINGS: SUPPORT DEVICES: ET tube tip is about 6 cm above the janis. HEART / MEDIASTINUM: Stable. LUNGS / PLEURA: Stable bilateral perihilar opacities. No pneumothorax. ADDITIONAL FINDINGS: No significant additional findings. IMPRESSION: 1. Endotracheal tube in expected position. - Medical Decision Making 61-year-old male presents to the hospital with pulmonary edema and hypoxia not improved with aggressive ED measures. Patient deteriorated and required intubat ion for additional respiratory support. No signs of ST elevation [place] or elevated troponin at time of initial presentation. Patient received aspirin prior to arrival and received nitroglycerin drip, IV Lasix 60 mg, and propofol drip was initiated for sedation status post intubation. Case discussed with critical care doctor, lock setter, and hospitalist for admission.. ABG reveals hypoxia and respiratory acidosis. Hospitalist informed Critical Care Time: Yes Critical care time in (mins) excluding proc time.: 45 Critical care attestation.: If time is entered above; I have spent that time in minutes in the direct care of this critically ill patient, excluding procedure time. Critical Care Time: 45 minutes of critical care time excluding procedures were used in the care of the patient. I came immediately to the bedside upon patient's arrival. I obtained history from EMS at the bedside. I discussed treatment plan with the nursing team members. I reviewed electronic record. Patient required multiple interventions and reassessments. Spoke with hospitalist and consultants for co llaborative care ED Disposition Clinical Impression: Pulmonary edema, History of coronary artery disease, Acute respiratory failure with hypoxia and hypercapnia, Hypertensive emergency Disposition: ADMITTED INPATIENT Is pt being admited?: Yes Condition: Fair Time of Disposition: 11:36 (Dr Painter/hospitalist)
[2021-08-22 10:52] LABS: Mean Corpuscular HGB Conc 31 % (32-34); Mean Corpuscular Volume 95 fl (84-94); Red Blood Count 5.54 M/mm3 (3.65-5.03); Red Cell Distribution Width 13.8 % (13.2-15.2)
[2021-08-22] MEDS ORDERED: SUCCINYLCHOLINE CHLORIDE 200 MG/10 ML INJ MDV ONE (11:07)
[2021-08-22] MEDS ORDERED: ETOMIDATE 20 MG/10 ML INJ IV ONE ×2 (11:07→11:10)
[2021-08-22] MEDS ORDERED: SUCCINYLCHOLINE CHLORIDE 200 MG/10 ML INJ MDV IV ONE (11:10)
[2021-08-22 11:11] LABS: Alanine Aminotransferase 64 units/L (7-56); Albumin 4.2 g/dL (3.9-5); BUN/Creatinine Ratio 10; Blood Urea Nitrogen 17 mg/dL (9-20); Calcium 9.2 mg/dL (8.4-10.2); Hemolysis Index 118
[2021-08-22 11:14] LABS: INR 1.03 (0.87-1.13)
[2021-08-22 11:15] LABS: Partial Thromboplastin Time 36.5 Sec. (24.2-36.6)
[2021-08-22] MEDS ORDERED: MINERAL OIL/PETROLATUM, WHITE OPHTH OINT 3.5 GM OU PRN (11:29)
[2021-08-22] MEDS ORDERED: LIP THERAPY VASELINE TP PRN (11:29)
--- NOTE | 2021-08-22 11:30 | XRay Report ---
CHEST 1 VIEW 08/22/2021 10:20 AM INDICATION / CLINICAL INFORMATION: sob. COMPARISON: 05/23/2021 FINDINGS: SUPPORT DEVICES: None. HEART / MEDIASTINUM: Mild prominence of the heart. LUNGS / PLEURA: Hazy airspace opacities are noted within the perihilar chest bilaterally with pulmona ry vascular indistinctness. No pneumothorax. ADDITIONAL FINDINGS: No significant additional findings. IMPRESSION: 1. Findings suggesting pulmonary edema. Signer Name: Austin Briseno DO Signed: 08/22/2021 11:24 AM Workstation Name: [id number]
[2021-08-22 11:31] LABS: Hematocrit 52.3 % (35.5-45.6); Hemoglobin 16.4 gm/dl (11.8-15.2)
[2021-08-22 11:45] LABS: Platelet Count 158 K/mm3 (140-440)
--- NOTE | 2021-08-22 11:59 | XRay Report ---
CHEST 1 VIEW 08/22/2021 10:46 AM INDICATION / CLINICAL INFORMATION: ETT placement. COMPARISON: 08/22/2021 FINDINGS: SUPPORT DEVICES: ET tube tip is about 6 cm above the janis. HEART / MEDIASTINUM: Stable. LUNGS / PLEURA: Stable bilateral perihilar opacities. No pneumothorax. ADDITIONAL FINDINGS: No significant additional findings. IMPRESSION: 1. Endotracheal tube in expected position. Signer Name: Chris Darnell MD Signed: 08/22/2021 11:55 AM Workstation Name: [id number]
[2021-08-22 12:29] LABS: ABG Base Excess -12.3 mmol/L (-2.0-3.0); ABG Methemoglobin 0.8 % (0.0-1.5); ABG PCO2 84.8 mm Hg; ABG PO2 93.2 mm Hg (80.0-90.0)
[2021-08-22 12:32] LABS: ABG PH 7.011 pH Units (7.350-7.450)
[2021-08-22] MEDS ORDERED: METOCLOPRAMIDE 10 MG/2 ML INJ IV PRN (12:54)
[2021-08-22] MEDS ORDERED: MORPHINE 2 MG/1 ML INJ IV PRN (12:54)
[2021-08-22] MEDS ORDERED: HYDROmorphone 1 MG/1 ML INJ IV PRN (12:54)
[2021-08-22] MEDS ORDERED: ACETAMINOPHEN 650 MG RECT SUPP PR PRN (12:54)
--- NOTE | 2021-08-22 12:54 | History and Physical Report ---
History of Present Illness Date of examination: 08/22/21 Date of admission: 08/22/2021 Chief complaint: Severe shortness of breath since a.m. History of present illness: 61-year-old male with past medical history of CHF, coronary artery disease, acute MT with s/p PCI in the stent brought in by son for severe shortness of breath. Son drove the patient to the fire department where the fire department and EMS tried to resuscitate him. Patient was severely diaphoretic and hypoxic with oxygen level of 60%. CPAP was initiated and aspirin was given. In the emergency room patient was put on BiPAP to which the patient did not respond. Because of persistent hypoxia patient was intubated. Patient was in acute pulmonary edema. Patient was admitted in May and had a stress test and echocardiogram which showed ejection fraction of 20 to 30% - Past Medical History --Hypertension: Yes --Heart Attack/AMI: Yes (2017) --Congestive Heart Failure: Yes --GERD: Yes - Surgical History --Coronary Stent: Yes (2017) - Social History Smoking Status: Current Every Day Smoker Substance Use Type: Alcohol -Family history Htn - Medications Home Medications: Home Medications Medication Instructions Recorded Confirmed Last Taken Type Amoxicillin/Potassium Clav 1 each PO Q12H 4 Days #4 tab 05/27/21 Unknown Rx [Augmentin 875-125 Tablet] Aspirin [Aspirin BABY CHEW TAB] 81 mg PO QDAY 30 Days #30 tab.chew 05/27/21 08/22/21 Unknown Rx Atorvastatin Calcium [Lipitor] 80 mg PO DAILY 30 Days #30 tab 05/27/21 Unknown Rx Azithromycin 500 mg PO DAILY 2 Days #2 tab 05/27/21 Unknown Rx Clopidogrel [Plavix] 75 mg PO QDAY 30 Days #30 tab 05/27/21 08/22/21 Unknown Rx Furosemide [Lasix TAB] 20 mg PO QDAY 30 Days #30 tablet 05/27/21 08/22/21 Unknown Rx Hydrocortisone 2.5% [Hytone 2.5% 1 applic TP Q12HR PRN 30 Days #1 05/27/21 Unknown Rx CREAM] tube Losartan [Cozaar] 100 mg PO QDAY 30 Days #30 tab 05/27/21 Unknown Rx carvediloL [Coreg] 25 mg PO BID 30 Days #60 tab 05/27/21 08/22/21 Unknown Rx Review of Systems ROS: Stated complaint: CHEST PAIN Other details as noted in HPI Comment: Unobtainable due to pts medical conditions Medications and Allergies Allergies Allergy/AdvReac Type Severity Reaction Status Date / Time No Known Allergies Allergy Verified 04/12/14 20:08 Home Medications Medication Instructions Recorded Confirmed Last Taken Type Amoxicillin/Potassium Clav 1 each PO Q12H 4 Days #4 tab 05/27/21 Unknown Rx [Augmentin 875-125 Tablet] Aspirin [Aspirin BABY CHEW TAB] 81 mg PO QDAY 30 Days #30 tab.chew 05/27/21 08/22/21 Unknown Rx Atorvastatin Calcium [Lipitor] 80 mg PO DAILY 30 Days #30 tab 05/27/21 Unknown Rx Azithromycin 500 mg PO DAILY 2 Days #2 tab 05/27/21 Unknown Rx Clopidogrel [Plavix] 75 mg PO QDAY 30 Days #30 tab 05/27/21 08/22/21 Unknown Rx Furosemide [Lasix TAB] 20 mg PO QDAY 30 Days #30 tablet 05/27/21 08/22/21 Unknown Rx Hydrocortisone 2.5% [Hytone 2.5% 1 applic TP Q12HR PRN 30 Days #1 05/27/21 Unkn own Rx CREAM] tube Losartan [Cozaar] 100 mg PO QDAY 30 Days #30 tab 05/27/21 Unknown Rx carvediloL [Coreg] 25 mg PO BID 30 Days #60 tab 05/27/21 08/22/21 Unknown Rx Active Meds: Active Medications Famotidine (Famotidine 20 Mg/2 Ml Inj) 20 mg IV BID KAYLYNN Furosemide (Furosemide 40 Mg/4 Ml Inj) 40 mg IV BID KAYLYNN Hydrophilic Ointment (Lip Therapy Vaseline) 1 applic TP Q2HR PRN PRN Reason: Dry Lips Nitroglycerin/Dextrose (Tridil Drip 50mg/250ml) 50 mg in 250 mls @ 3 mls/hr IV TITR KAYLYNN; Protocol Last Titration: 08/22/21 10:32 Dose: 40 mcg/min, 12 mls/hr Propofol (Diprivan 10 Mg/Ml) 1,000 mg in 100 mls @ 2.449 mls/hr IV TITR KAYLYNN; Protocol Last Titration: 08/22/21 11:43 Dose: 20 mcg/kg/min, 9.798 mls/hr Multi-Ingred Cream/Lotion/Oil/Oint (Mineral Oil/Petrolatum, White Ophth Oint 3.5 Gm) 1 applic OU Q4HR PRN PRN Reason: Dry Eye(s) Senna/Docusate Sodium (Sennosides/Docusate Sodium 8.6/50 Mg Tab) 1 tab FEEDTUBE BID KAYLYNN Exam - Physical Exam Narrative exam: Patient is intubated. - Constitutional Vitals: Temp Pulse Resp BP Pulse Ox 97.9 F 51 L 24 170/129 88 08/22/21 10:10 08/22/21 11:45 08/22/21 10:10 08/22/21 11:45 08/22/21 11:45 General appearance: Present: severe distress, well-nourished - EENT Eyes: Present: PERRL ENT: hearing intact, clear oral mucosa - Neck Neck: Present: supple, normal ROM - Respiratory Respiratory effort: normal Respiratory: bilateral: CTA, rales (Bilaterally.) - Cardiovascular Heart rate: 110 Rhythm: regular Heart Sounds: Present: S1 & S2. Absent: rub, click - Extremities Extremities: pulses symmetrical, No edema Peripheral Pulses: within normal limits - Abdominal General gastrointestinal: Present: soft, non-tender, non-distended, normal bowel sounds Male genitourinary: Present: normal - Integumentary Integumentary: Present: clear, warm, dry - Musculoskeletal Musculoskeletal: gait normal, strength equal bilaterally - Psychiatric Psychiatric: appropriate mood/affect, intact judgment & insight - Neurologic Neurologic: CNII-XII intact, moves all extremities HEART Score - HEART Score History: Highly suspicious Age: 45-65 Risk factors: > 3 risk factors or hx of atherosclerotic disease Troponin: Troponin T < 0.010 ng/mL (0.00-0.029) 08/22/21 10:30 Troponin: 1-3x normal limit - Critical Actions Critical Actions: 4-6 pts:12-16.6% risk of adverse cardiac event. Should be admitted Results - Labs CBC & Chem 7: 08/23/21 04:14 08/23/21 04:14 Labs: Laboratory Last Values WBC 9.3 K/mm3 (4.5-11.0) 08/22/21 10:30 RBC 5.54 M/mm3 (3.65-5.03) H 08/22/21 10:30 Hgb 16.4 gm/dl (11.8-15.2) H 08/22/21 10:30 Hct 52.3 % (35.5-45.6) H 08/22/21 10:30 MCV 95 fl (84-94) H 08/22/21 10:30 MCH 30 pg (28-32) 08/22/21 10:30 MCHC 31 % (32-34) L 08/22/21 10:30 RDW 13.8 % (13.2-15.2) 08/22/21 10:30 Plt Count 158 K/mm3 (140-440) 08/22/21 10:30 Lymph % (Auto) Saw Edge Fuser Circular 08/22/21 10:30 Lymph # (Auto) Saw Edge Fuser Circular 08/22/21 10:30 Seg Neutrophils % Saw Edge Fuser Circular 08/22/21 10:30 PT 14.7 Sec. (12.2-14.9) 08/22/21 10:30 INR 1.03 (0.87-1.13) 08/22/21 10:30 APTT 36.5 Sec. (24.2-36.6) 08/22/21 10:30 ABG pH 7.011 pH Units (7.350-7.450) L* 08/22/21 12:05 ABG pCO2 84.8 mm Hg 08/22/21 12:05 ABG pO2 93.2 mm Hg (80.0-90.0) H 08/22/21 12:05 ABG HCO3 21.0 mmol/L (20.0-26.0) 08/22/21 12:05 ABG O2 Saturation 93.0 % (95.0-99.0) L 08/22/21 12:05 ABG O2 Content 21.3 (0.0-44) 08/22/21 12:05 ABG Base Excess -12.3 mmol/L (-2.0-3.0) L 08/22/21 12:05 ABG Hemoglobin 16.6 gm/dl (14.0-18.0) 08/22/21 12:05 ABG Carboxyhemoglobin 1.1 % (0.0-5.0) 08/22/21 12:05 ABG Methemoglobin 0.8 % (0.0-1.5) 08/22/21 12:05 Oxyhemoglobin 91.2 % (95.0-99.0) L 08/22/21 12:05 FiO2 100 % 08/22/21 12:05 Sodium 143 mmol/L (137-145) 08/22/21 10:30 Potassium 4.1 mmol/L (3.6-5.0) 08/22/21 10:30 Chloride 102.2 mmol/L (98-107) 08/22/21 10:30 Carbon Dioxide 16 mmol/L (22-30) L 08/22/21 10:30 Anion Gap 29 mmol/L 08/22/21 10:30 BUN 17 mg/dL (9-20) 08/22/21 10:30 Creatinine 1.7 mg/dL (0.8-1.3) H 08/22/21 10:30 Estimated GFR 50 ml/min 08/22/21 10:30 BUN/Creatinine Ratio 10 % 08/22/21 10:30 Glucose 255 mg/dL (75-100) H 08/22/21 10:30 Calcium 9.2 mg/dL (8.4-10.2) 08/22/21 10:30 Magnesium 2.40 mg/dL (1.7-2.3) H 08/22/21 10:30 Total Bilirubin 0.50 mg/dL (0.1-1.2) 08/22/21 10:30 AST 81 units/L (5-40) H 08/22/21 10:30 ALT 64 units/L (7-56) H 08/22/21 10:30 Alkaline Phosphatase 82 units/L (35-129) 08/22/21 10:30 Troponin T < 0.010 ng/mL (0.00-0.029) 08/22/21 10:30 NT-Pro-B Natriuret Pep 2518 pg/mL (0-900) H 08/22/21 10:30 Total Protein 7.5 g/dL (6.3-8.2) 08/22/21 10:30 Albumin 4.2 g/dL (3.9-5) 08/22/21 10:30 Albumin/Globulin Ratio 1.3 % 08/22/21 10:30 Short CBC 08/22/21 Range/Units 10:30 WBC 9.3 (4.5-11.0) K/mm3 Hgb 16.4 H (11.8-15.2) gm/dl Hct 52.3 H (35.5-45.6) % Plt Count 158 (140-440) K/mm3 [facility] 08/22/21 10:30 Sodium 143 Potassium 4.1 Chloride 102.2 Carbon Dioxide 16 L BUN 17 Creatinine 1.7 H Glucose 255 H Calcium 9.2 Cardiac Enzymes 08/22/21 Range/Units 10:30 Troponin T < 0.010 (0.00-0.029) ng/mL Liver Function 08/22/21 Range/Units 10:30 Total Bilirubin 0.50 (0.1-1.2) mg/dL AST 81 H (5-40) units/L ALT 64 H (7-56) units/L Alkaline Phosphatase 82 (35-129) units/L Albumin 4.2 (3.9-5) g/dL Short CBC 08/22/21 08/23/21 Range/Units 10:30 04:14 WBC 9.3 8.6 (4.5-11.0) K/mm3 Hgb 16.4 H 15.6 H (11.8-15.2) gm/dl Hct 52.3 H 47.6 H (35.5-45.6) % Plt Count 158 111 L (140-440) K/mm3 [facility] 08/22/21 08/23/21 10:30 04:14 Sodium 143 146 H Potassium 4.1 5.1 H D Chloride 102.2 105.5 Carbon Dioxide 16 L 22 BUN 17 32 H Creatinine 1.7 H 3.0 H D Glucose 255 H 75 Calcium 9.2 8.9 Cardiac Enzymes 08/22/21 08/22/21 08/22/21 Range/Units 10:30 13:04 20:25 Troponin T < 0.010 0.055 H D 0.087 H D (0.00-0.029) ng/mL Liver Function 08/22/21 08/23/21 Range/Units 10:30 04:14 Total Bilirubin 0.50 1.30 H (0.1-1.2) mg/dL AST 81 H 43 H (5-40) units/L ALT 64 H 50 (7-56) units/L Alkaline Phosphatase 82 73 (35-129) units/L Albumin 4.2 3.8 L (3.9-5) g/dL - Imaging and Cardiology EKG: report reviewed (Sinus tachycardia.) Chest x-ray: report reviewed Imaging and Cardiology: Chest x-ray Findings suggesting pulmonary edema Assessment and Plan Assessment and plan: Critical care statement The high probability OF a clinically significant sudden or life-threatening deterioration of the cardiorespiratory system and endocrine system required my full and direct attention, intervention and postoperative management. The aggregate critical care time was 40 minutes. The time is in addition to time spent performing reported procedures but includes the followin: Data review and interpretation 2: Patient assessment and monitoring of vital signs 3: Documentation 4:: Medication orders and management Advance Directives: Yes - Patient Problems (1) Acute respiratory failure with hypoxia and hypercapnia Current Visit: Yes Status: Acute Plan to address problem: Patient is severely hypoxic Patient is intubated Vent management Assistant Associate Professor consult IV diuretics (2) Pulmonary edema Current Visit: Yes Status: Acute Qualifiers: Chronicity: acute Qualified Code(s): J81.0 - Acute pulmonary edema Plan to address problem: Patient in florid acute pulmonary edema IV Lasix and morphine Aldactone added Echocardiogram for ejection fraction Cardiology consult (3) Acute on chronic HFrEF (heart failure with reduced ejection fraction) Current Visit: Yes Status: Acute Plan to address problem: Patient with IV Lasix Echocardiogram for ejection fraction (4) Coronary artery disease Current Visit: Yes Status: Chronic Qualifiers: Coronary Disease-Associated Artery/Lesion type: [place] artery [place] vs. transplanted heart: [place] heart Plan to address problem: Continue Plavix and isosorbide mononitrate (5) Hypertension Current Visit: Yes Status: Chronic Qualifiers: Hypertension type: primary hypertension Qualified Code(s): I10 - Essential (primary) hypertension Plan to address problem: Continue antihypertensives and adjust medications (6) DVT prophylaxis Current Visit: Yes Status: Acute Plan to address problem: On anticoagulation GI prophylaxis (7) Advance care planning Current Visit: Yes Status: Acute Plan to address problem: Could not be done because of the patient's condition
[2021-08-22] MEDS ORDERED: ENOXAPARIN 30 MG/0.3 ML INJ SUB-Q SCH (13:00)
[2021-08-22] MEDS ORDERED: SPIRONOLACTONE 25 MG TAB PO SCH (14:00)
[2021-08-22 14:09] LABS: Chol/HDL Ratio 4.98 %
[2021-08-22] MEDS: FUROSEMIDE 40 MG/4 ML INJ IV SCH ×2 (14:33→18:56)
[2021-08-22] MEDS ORDERED: ENOXAPARIN 40 MG/0.4 ML INJ SUB-Q SCH (15:00)
--- NOTE | 2021-08-22 15:21 | Consultation ---
History of Present Illness Consult date: 08/22/21 Requesting physician: ODALYS YBARRA Consult reason: other (pulm edema, respiratory failure ) History of present illness: This is a 61-year-old male, seen 2 days ago in our clinic by Dr. Geraldo Man without complaints, with past medical history of coronary artery disease status post PCI, NH on DAPT, hypertension, heart failure, hyperlipidemia, who presented to the hospital complaining of shortness of breath. All information is obtained from medical records/family due to patient condition. Reportedly, the patient drove up to the fire department with his son and was resuscitated by the fire department EMS prior to arrival [facility]. According to EMS, the patient was extremely hypertensive with a room air saturation of 60%, diaphoretic, and in respiratory distress and chest pain. Aspirin 324 mg was given to patient. Was able to contact son this afternoon who stated father was in usual state of health until this morning when he awoke severly short of breath. Son states his dad did not complain of any other symptoms and had been compliant with all medications. On arrival to the hospital he had altered mental status and he was ultimately intubated for respiratory distress. ER work-up found him to be in pulmonary edema and with minimally elevated troponins. BNP was 2518. Cholesterol elevated and chest x-ray findings that suggest pulmonary edema. Cardiology consulted for respiratory failure and pulmonary edema. Past History Past Medical History: CAD, heart failure, hypertension, hyperlipidemia Medications and Allergies Allergies Allergy/AdvReac Type Severity Reaction Status Date / Time No Known Allergies Allergy Verified 04/12/14 20:08 Home Medications Medication Instructions Recorded Confirmed Last Taken Type Amoxicillin/Potassium Clav 1 each PO Q12H 4 Days #4 tab 05/27/21 Unknown Rx [Augmentin 875-125 Tablet] Aspirin [Aspirin BABY CHEW TAB] 81 mg PO QDAY 30 Days #30 tab.chew 05/27/21 08/22/21 Unknown Rx Atorvastatin Calcium [Lipitor] 80 mg PO DAILY 30 Days #30 tab 05/27/21 Unknown Rx Azithromycin 500 mg PO DAILY 2 Days #2 tab 05/27/21 Unknown Rx Clopidogrel [Plavix] 75 mg PO QDAY 30 Days #30 tab 05/27/21 08/22/21 Unknown Rx Furosemide [Lasix TAB] 20 mg PO QDAY 30 Days #30 tablet 05/27/21 08/22/21 Unknown Rx Hydrocortisone 2.5% [Hytone 2.5% 1 applic TP Q12HR PRN 30 Days #1 05/27/21 Unknown Rx CREAM] tube Losartan [Cozaar] 100 mg PO QDAY 30 Days #30 tab 05/27/21 Unknown Rx carvediloL [Coreg] 25 mg PO BID 30 Days #60 tab 05/27/21 08/22/21 Unknown Rx Active Meds: Active Medications Acetaminophen (Acetaminophen 650 Mg Rect Supp) 650 mg TX Q4H PRN PRN Reason: Pain MILD(1-3)/Fever >100.5/COOK Aspirin (Aspirin 81 Mg Tab Chew) 81 mg PO QDAY KAYLYNN Clopidogrel Bisulfate (Clopidogrel 75 Mg Tab) 75 mg PO QDAY KAYLYNN Enoxaparin Sodium (Enoxaparin 40 Mg/0.4 Ml Inj) 40 mg SUB-Q QDAY [facility] Last Admin: 08/22/21 14:34 Dose: 40 mg Famotidine (Famotidine 20 Mg/2 Ml Inj) 20 mg IV BID KAYLYNN Furosemide (Furosemide 40 Mg/4 Ml Inj) 40 mg IV 0600,1800 [facility] Last Admin: 08/22/21 14:33 Dose: 40 mg Hydromorphone HCl (Hydromorphone 1 Mg/1 Ml Inj) 0.5 mg IV Q3H PRN PRN Reason: Pain , Severe (7-10) Hydrophilic Ointment (Lip Therapy Vaseline) 1 applic TP Q2HR PRN PRN Reason: Dry Lips Nitroglycerin/Dextrose (Tridil Drip 50mg/250ml) 50 mg in 250 mls @ 3 mls/hr IV TITR KAYLYNN; Protocol Last Titration: 08/22/21 14:06 Dose: 0 mcg/min, 0 mls/hr Propofol (Diprivan 10 Mg/Ml) 1,000 mg in 100 mls @ 2.449 mls/hr IV TITR KAYLYNN; Protocol Last Titration: 08/22/21 12:30 Dose: 50 mcg/kg/min, 24.494 mls/hr Metoclopramide HCl (Metoclopramide 10 Mg/2 Ml Inj) 10 mg IV Q6H PRN PRN Reason: Nausea And Vomiting Morphine Sulfate (Morphine 2 Mg/1 Ml Inj) 2 mg IV Q4H PRN PRN Reason: Pain, Moderate (4-6) Multi-Ingred Cream/Lotion/Oil/Oint (Mineral Oil/Petrolatum, White Ophth Oint 3.5 Gm) 1 applic OU Q4HR PRN PRN Reason: Dry Eye(s) Ondansetron HCl (Ondansetron 4 Mg/2 Ml Inj) 4 mg IV Q3H PRN PRN Reason: Nausea And Vomiting Senna/Docusate Sodium (Sennosides/Docusate Sodium 8.6/50 Mg Tab) 1 tab FEEDTUBE BID KAYLYNN Sodium Chloride (Sodium Chloride 0.9% 10 Ml Flush Syringe) 10 ml IV BID KAYLYNN Sodium Chloride (Sodium Chloride 0.9% 10 Ml Flush Syringe) 10 ml IV PRN PRN PRN Reason: LINE FLUSH Spironolactone (Spironolactone 25 Mg Tab) 50 mg PO Q24H KAYLYNN Review of Systems ROS unobtainable: due to endotracheal tube, due to mental status Physical Examination Vital Signs Temp Pulse Resp BP Pulse Ox 97.9 F 88 24 240/140 60 L 08/22/21 10:10 08/22/21 10:10 08/22/21 10:10 08/22/21 10:10 08/22/21 10:10 General appearance: mild distress Cardiac: Positive: S1/S2 Lungs: Positive: Rhonchi, Ventilated Respirations Neuro: Positive: Other (unable to assess) Abdomen: Positive: Soft Male genitourinary: Positive: deferred Skin: Negative: Rash Extremities: Absent: edema Results 08/22/21 10:30 08/22/21 10:30 Cardiac Enzymes 08/22/21 Range/Units 10:30 AST 81 H (5-40) units/L Coagulation 08/22/21 Range/Units 10:30 PT 14.7 (12.2-14.9) Sec. INR 1.03 (0.87-1.13) APTT 36.5 (24.2-36.6) Sec. Lipids 08/22/21 Range/Units 13:04 Triglycerides 1052 H (2-149) mg/dL Cholesterol 259 H (50-199) mg/dL HDL Cholesterol 52 (40-59) mg/dL Cholesterol/HDL Ratio 4.98 % CBC 08/22/21 Range/Units 10:30 WBC 9.3 (4.5-11.0) K/mm3 RBC 5.54 H (3.65-5.03) M/mm3 Hgb 16.4 H (11.8-15.2) gm/dl Hct 52.3 H (35.5-45.6) % Plt Count 158 (140-440) K/mm3 Lymph # (Auto) Serologist Comprehensive Metabolic Panel 08/22/21 Range/Units 10:30 Sodium 143 (137-145) mmol/L Potassium 4.1 (3.6-5.0) mmol/L Chloride 102.2 (98-107) mmol/L Carbon Dioxide 16 L (22-30) mmol/L BUN 17 (9-20) mg/dL Creatinine 1.7 H (0.8-1.3) mg/dL Glucose 255 H (75-100) mg/dL Calcium 9.2 (8.4-10.2) mg/dL AST 81 H (5-40) units/L ALT 64 H (7-56) units/L Alkaline Phosphatase 82 (35-129) units/L Total Protein 7.5 (6.3-8.2) g/dL Albumin 4.2 (3.9-5) g/dL - Imaging and Cardiology Echo: pending EKG: report reviewed, image reviewed EKG interpretations - Telemetry EKG Rhythm: Sinus Rhythm - EKG Sinus rhythms and dysrhythmias: sinus rhythm Ventricular dysrhythmias: ventricular premature com Myocardial infarction: anterior NH (old age or i, lateral NH (old age or in Assessment and Plan Assessment Acute hypoxemic respiratory failure Acute on chronic HFrEF Pulmonary edema JL Coronary artery disease status post PCI Hypertensive emergency Cardiographics EKG-08/22/21--sinus rhythm with PVCs, LAE, consider biatrial enlargement, LV hypertrophy, inferior infarct, old. Anterolateral infarct, age indeterminant compared Chest x-ray 08/22/21- Findings suggest pulmonary edema Echocardiogram-previous EF 35 to 40%. With LV systolic function mild to moderately decreased. Stress test- 05/27/21: ECG findings: Positive for ischemia. Clinical findings: Negative for ischemia. Nuclear findings: Negative for ischemia. Negative Lexiscan. Large apical infarct and moderate infarct in anterior apical and inferior apical and EF 23%. Akinesis of apical and anterior and inferior apical region, no significant ischemia noted. Cath- None. Recommendations/plan Repeat echocardiogram Okay with aldactone 50 mg PO qday. Initiate Lasix 40 mg IV twice daily in the setting of pulmonary edema. Patient with elevated liver enzymes. Hold off on statin for now. No LARRY/ARB/ARNI in the setting of JL. (Last known dose of Entresto 08/19 per [place] documentation) Restart baby aspirin and plavix 75 mg PO qday No BB for now r/t soft BP. Thank you for this consultation, we will follow along. Patient seen in conjunction with Dr. De La Cruz who agrees with the assessment and management of this patient. - Patient Problems (1) Acute on chronic HFrEF (heart failure with reduced ejection fraction) Current Visit: Yes Status: Acute (2) JL (acute kidney injury) Current Visit: Yes Status: Acute (3) Acute respiratory failure with hypoxia and hypercapnia Current Visit: Yes Status: Acute (4) History of coronary artery disease Current Visit: Yes Status: Acute (5) Hypertensive emergency Current Visit: Yes Status: Acute (6) Pulmonary edema Current Visit: Yes Status: Acute (7) Acute hypoxemic respiratory failure Current Visit: Yes Status: Acute
[2021-08-22] MEDS ORDERED: fentaNYL 100 MCG/2 ML INJ IV PRN (15:55)
[2021-08-22 16:28] LABS: Amphetamine Screen,Urine Negative; Benzodiazepines Screen,Urine Negative; Cocaine Screen,Urine Negative; Methadone Screen,Urine Negative; Opiate Screen,Urine Negative
[2021-08-22 16:31] LABS: ABG Base Excess -6.7 mmol/L (-2.0-3.0); ABG HCO3 20.7 mmol/L (20.0-26.0); ABG Methemoglobin 0.7 % (0.0-1.5); ABG Oxygen Saturation 99.4 % (95.0-99.0); ABG PCO2 47.9 mm Hg; ABG PH 7.254 pH Units (7.350-7.450)
[2021-08-22 16:32] LABS: ABG PO2 259.9 mm Hg (80.0-90.0)
[2021-08-22 16:43] LABS: Cannabinoid Screen,Urine Positive
[2021-08-22] MEDS: fentaNYL DRIP Premix 2,000 MCG/100 ML BAG IV SCH (16:53)
[2021-08-22 17:12] LABS: Band Neutrophils # (Manual) 0.2 K/mm3; Basophils % (Manual) 0 % (0.0-1.8); Myelocytes # (Manual) 0.1 K/mm3; Total Cells Counted 100
[2021-08-22 17:13] LABS: Platelet Estimate Consistent w Auto
[2021-08-22] MEDS: ASPIRIN 81 MG TAB CHEW PO SCH (18:55)
[2021-08-22] MEDS: CLOPIDOGREL 75 MG TAB PO SCH (18:55)
[2021-08-22] MEDS: ONDANSETRON 4 MG/2 ML INJ IV PRN (18:59)
[2021-08-22] MEDS ORDERED: FUROSEMIDE 40 MG/4 ML INJ IV SCH (22:00)
[2021-08-22] MEDS ORDERED: FAMOTIDINE 20 MG/2 ML INJ IV SCH (22:00)
[2021-08-22] MEDS: SENNOSIDES/DOCUSATE SODIUM 8.6/50 MG TAB FEEDTUBE SCH (22:24)
[2021-08-23] MEDS: fentaNYL DRIP Premix 2,000 MCG/100 ML BAG IV SCH (01:45)
--- NOTE | 2021-08-23 04:15 | XRay Report ---
CHEST 1 VIEW INDICATION / CLINICAL INFORMATION: follow up respiratory failure. COMPARISON: Chest x-ray 08/22/2021 FINDINGS: SUPPORT DEVICES: Endotracheal tube terminates at the level of the sternoclavicular junction. Advancem ent by 1 to 2 cm could be considered. Esophagogastric tube remains present. HEART / MEDIASTINUM: Stable interval appearance of the cardiomediastinal silhouette. LUNGS / PLEURA: Scattered lung opacities remain in the mid and lower chest with significant improveme nt since comparison study. BONES: No significant osseous abnormality. ADDITIONAL FINDINGS: No significant additional findings. IMPRESSION: 1. Near total clearing of the lungs suggesting improving pulmonary edema. 2. The endotracheal tube lies at the sternoclavicular junction. Advancement by 1 to 2 cm could be con sidered for optimal positioning. Signer Name: Lauri William II, MD Signed: 08/23/2021 4:11 AM Workstation Name: [id number]
[2021-08-23 04:53] LABS: ABG HCO3 20.5 mmol/L (20.0-26.0); ABG Methemoglobin 0.9 % (0.0-1.5); ABG Oxygen Saturation 98.7 % (95.0-99.0); ABG PH 7.329 pH Units (7.350-7.450); ABG PO2 144.3 mm Hg (80.0-90.0)
[2021-08-23 05:10] LABS: Basophils % (Auto) 0.3 % (0.0-1.8); Hematocrit 47.6 % (35.5-45.6); Hemoglobin 15.6 gm/dl (11.8-15.2); Lymphocytes # (Auto) 0.9 K/mm3 (1.2-5.4); Lymphocytes % (Auto) 10.1 % (13.4-35.0); Mean Corpuscular HGB Conc 33 % (32-34); Mean Corpuscular Volume 91 fl (84-94); Monocytes # (Auto) 0.5 K/mm3 (0.0-0.8); Platelet Count 111 K/mm3 (140-440); Red Blood Count 5.21 M/mm3 (3.65-5.03); Red Cell Distribution Width 13.4 % (13.2-15.2)
[2021-08-23] MEDS: ONDANSETRON 4 MG/2 ML INJ IV PRN (05:11)
[2021-08-23] MEDS: FUROSEMIDE 40 MG/4 ML INJ IV SCH (05:11)
[2021-08-23 05:27] LABS: Albumin 3.8 g/dL (3.9-5); Calcium 8.9 mg/dL (8.4-10.2)
--- NOTE | 2021-08-23 09:12 | XRay Report ---
ABDOMEN 1 VIEW 08/23/2021 8:46 AM INDICATION / CLINICAL INFORMATION: OGT Placement. COMPARISON: None available. FINDINGS: TUBES / LINES: Tip of the OG tube projects the level of the mid stomach. BOWEL GAS PATTERN: No significant abnormality. FREE AIR / EXTRALUMINAL GAS: None. ADDITIONAL FINDINGS: No significant additional findings. IMPRESSION: 1. Esophagogastric tube in expected position. Signer Name: Man Gorman MD Signed: 08/23/2021 9:07 AM Workstation Name: [email or web address]
[2021-08-23 09:54] LABS: Creatinine,Urine 236.9 mg/dL (0.1-20.0)
[2021-08-23] MEDS ORDERED: FAMOTIDINE 20 MG/2 ML INJ IV SCH (10:00)
[2021-08-23] MEDS ORDERED: ENOXAPARIN 30 MG/0.3 ML INJ SUB-Q SCH (10:00)
--- NOTE | 2021-08-23 10:19 | Electrocardiograph Report ---
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
[2021-08-23] MEDS: SENNOSIDES/DOCUSATE SODIUM 8.6/50 MG TAB FEEDTUBE SCH (10:36)
[2021-08-23] MEDS: ASPIRIN 81 MG TAB CHEW PO SCH (10:36)
[2021-08-23] MEDS: CLOPIDOGREL 75 MG TAB PO SCH (10:36)
[2021-08-23] MEDS: FENOFIBRATE 48 MG TAB PO SCH (10:36)
--- NOTE | 2021-08-23 10:39 | Consultation ---
History of Present Illness Consult date: 08/23/21 Requesting physician: ODALYS YBARRA Reason for consult: hypoxemia, other (Pulmonary Edema) History of present illness: 61 y/o male with known CHF admitted with acute respiratory failure. Patient failed cpap, then bipap and required mechanical ventilation. Now Pulm Edema has resolved and patient is awake and alert on vent writing his thoughts. Sister at bedside. Remainder of the review is negative. Past History Past Medical History: CAD, heart failure, hypertension, hyperlipidemia Medications and Allergies Allergies Allergy/AdvReac Type Severity Reaction Status Date / Time No Known Allergies Allergy Verified 04/12/14 20:08 Home Medications Medication Instructions Recorded Confirmed Last Taken Type Amoxicillin/Potassium Clav 1 each PO Q12H 4 Days #4 tab 05/27/21 Unknown Rx [Augmentin 875-125 Tablet] Aspirin [Aspirin BABY CHEW TAB] 81 mg PO QDAY 30 Days #30 tab.chew 05/27/21 08/22/21 Unknown Rx Atorvastatin Calcium [Lipitor] 80 mg PO DAILY 30 Days #30 tab 05/27/21 Unknown Rx Azithromycin 500 mg PO DAILY 2 Days #2 tab 05/27/21 Unknown Rx Clopidogrel [Plavix] 75 mg PO QDAY 30 Days #30 tab 05/27/21 08/22/21 Unknown Rx Furosemide [Lasix TAB] 20 mg PO QDAY 30 Days #30 tablet 05/27/21 08/22/21 Unknown Rx Hydrocortisone 2.5% [Hytone 2.5% 1 applic TP Q12HR PRN 30 Days #1 05/27/21 Unknown Rx CREAM] tube Losartan [Cozaar] 100 mg PO QDAY 30 Days #30 tab 05/27/21 Unknown Rx carvediloL [Coreg] 25 mg PO BID 30 Days #60 tab 05/27/21 08/22/21 Unknown Rx Active Meds: Active Medications Acetaminophen (Acetaminophen 650 Mg Rect Supp) 650 mg WA Q4H PRN PRN Reason: Pain MILD(1-3)/Fever >100.5/COOK Aspirin (Aspirin 81 Mg Tab Chew) 81 mg PO QDAY [facility] Last Admin: 08/22/21 18:55 Dose: Not Given Clopidogrel Bisulfate (Clopidogrel 75 Mg Tab) 75 mg PO QDAY [facility] Last Admin: 08/22/21 18:55 Dose: Not Given Enoxaparin Sodium (Enoxaparin 30 Mg/0.3 Ml Inj) 30 mg SUB-Q QDAY [facility] Famotidine (Famotidine 20 Mg/2 Ml Inj) 10 mg IV BID [facility] Fenofibrate (Fenofibrate 48 Mg Tab) 48 mg PO DAILY [facility] Fentanyl (Fentanyl 100 Mcg/2 Ml Inj) 50 mcg IV Q10MIN PRN PRN Reason: ANALGESIA Last Admin: 08/22/21 16:53 Dose: 50 mcg Furosemide (Furosemide 40 Mg/4 Ml Inj) 40 mg IV 0600,1800 [facility] Last Admin: 08/23/21 05:11 Dose: 40 mg Hydromorphone HCl (Hydromorphone 1 Mg/1 Ml Inj) 0.5 mg IV Q3H PRN PRN Reason: Pain , Severe (7-10) Hydrophilic Ointment (Lip Therapy Vaseline) 1 applic TP Q2HR PRN PRN Reason: Dry Lips Nitroglycerin/Dextrose (Tridil Drip 50mg/250ml) 50 mg in 250 mls @ 3 mls/hr IV TITR KAYLYNN; Protocol Last Titration: 08/22/21 14:06 Dose: 0 mcg/min, 0 mls/hr Dexmedetomidine HCl 400 mcg/ (Sodium Chloride) 104 mls @ 4.246 mls/hr IV TITRATE [facility]; Protocol Last Titration: 08/23/21 00:26 Dose: 0.1 mcg/kg/hr, 2.123 mls/hr Fentanyl Citrate (Fentanyl Drip Premix) 2,000 mcg in 100 mls @ 4.082 mls/hr IV TITR KAYLYNN; Protocol Last Titration: 08/23/21 09:55 Dose: 0 mcg/kg/hr, 0 mls/hr Metoclopramide HCl (Metoclopramide 10 Mg/2 Ml Inj) 10 mg IV Q6H PRN PRN Reason: Nausea And Vomiting Morphine Sulfate (Morphine 2 Mg/1 Ml Inj) 2 mg IV Q4H PRN PRN Reason: Pain, Moderate (4-6) Multi-Ingred Cream/Lotion/Oil/Oint (Mineral Oil/Petrolatum, White Ophth Oint 3.5 Gm) 1 applic OU Q4HR PRN PRN Reason: Dry Eye(s) Ondansetron HCl (Ondansetron 4 Mg/2 Ml Inj) 4 mg IV Q3H PRN PRN Reason: Nausea And Vomiting Last Admin: 08/23/21 05:11 Dose: 4 mg Senna/Docusate Sodium (Sennosides/Docusate Sodium 8.6/50 Mg Tab) 1 tab FEEDTUBE BID [facility] Last Admin: 08/22/21 22:24 Dose: Not Given Sodium Chloride (Sodium Chloride 0.9% 10 Ml Flush Syringe) 10 ml IV BID [facility] Last Admin: 08/22/21 22:25 Dose: 10 ml Sodium Chloride (Sodium Chloride 0.9% 10 Ml Flush Syringe) 10 ml IV PRN PRN PRN Reason: LINE FLUSH Review of Systems ROS unobtainable: due to endotracheal tube Physical Examination Vital signs: Vital Signs Temp Pulse Resp BP Pulse Ox 97.9 F 88 24 240/140 60 L 08/22/21 10:10 08/22/21 10:10 08/22/21 10:10 08/22/21 10:10 08/22/21 10:10 General appearance: no acute distress, alert Eyes: non-icteric ENT: other (orally intubated, not on sedation) Neck: supple Effort: normal Ascultation: Bilateral: clear Percussion: Bilateral: not dull Cardiovascular: regular rate and rhythm Gastrointestinal: normoactive bowel sounds, soft, non-tender Extremities: no cyanosis, no edema, pulses normal Musculoskeletal: no deformities normal mental status, non-focal exam mood appropriate, affect normal Results - Laboratory Findings CBC and BMP: 08/23/21 04:14 08/23/21 04:14 ABG ABG pH 7.329 pH Units (7.350-7.450) L 08/23/21 04:15 ABG pCO2 40.0 mm Hg 08/23/21 04:15 ABG pO2 144.3 mm Hg (80.0-90.0) H 08/23/21 04:15 ABG O2 Saturation 98.7 % (95.0-99.0) 08/23/21 04:15 PT/INR, D-dimer PT 14.7 Sec. (12.2-14.9) 08/22/21 10:30 INR 1.03 (0.87-1.13) 08/22/21 10:30 Abnormal lab findings: Abnormal Labs 08/22/21 08/22/21 08/22/21 10:30 10:30 12:05 RBC 5.54 H Hgb 16.4 H Hct 52.3 H MCV 95 H MCHC 31 L Plt Count Lymph % (Auto) Lymph # (Auto) Seg Neutrophils % Monocytes % (Manual) 8.0 H Eosinophils % (Manual) 9.0 H Eosinophils # (Manual) 0.8 H ABG pH 7.011 L* ABG pO2 93.2 H ABG O2 Saturation 93.0 L ABG Base Excess -12.3 L Oxyhemoglobin 91.2 L Sodium Potassium Carbon Dioxide 16 L BUN Creatinine 1.7 H Glucose 255 H Magnesium 2.40 H Total Bilirubin AST 81 H ALT 64 H Troponin T NT-Pro-B Natriuret Pep 2518 H Albumin Triglycerides Cholesterol LDL Cholesterol Direct Amylase 08/22/21 08/22/21 08/22/21 13:04 16:21 20:25 RBC Hgb Hct MCV MCHC Plt Count Lymph % (Auto) Lymph # (Auto) Seg Neutrophils % Monocytes % (Manual) Eosinophils % (Manual) Eosinophils # (Manual) ABG pH 7.254 L ABG pO2 259.9 H ABG O2 Saturation 99.4 H ABG Base Excess -6.7 L Oxyhemoglobin Sodium Potassium Carbon Dioxide BUN Creatinine Glucose Magnesium Total Bilirubin AST ALT Troponin T 0.055 H D 0.087 H D NT-Pro-B Natriuret Pep Albumin Triglycerides 1052 H Cholesterol 259 H LDL Cholesterol Direct 158 H Amylase 168 H 08/23/21 08/23/21 08/23/21 04:14 04:14 04:15 RBC 5.21 H Hgb 15.6 H Hct 47.6 H MCV MCHC Plt Count 111 L Lymph % (Auto) 10.1 L Lymph # (Auto) 0.9 L Seg Neutrophils % 83.6 H Monocytes % (Manual) Eosinophils % (Manual) Eosinophils # (Manual) ABG pH 7.329 L ABG pO2 144.3 H ABG O2 Saturation ABG Base Excess -5.0 L Oxyhemoglobin Sodium 146 H Potassium 5.1 H D Carbon Dioxide BUN 32 H Creatinine 3.0 H D Glucose Magnesium Total Bilirubin 1.30 H AST 43 H ALT Troponin T NT-Pro-B Natriuret Pep Albumin 3.8 L Triglycerides Cholesterol LDL Cholesterol Direct Amylase - Diagnostic Findings Chest x-ray: image reviewed Assessment and Plan 61 y/o male with CHF, admitted with hypertensive Emergency and CHF exacerbation resulting in Pulmonary edema causing acute respiratory failure. 1. Patient awake and alert, on minimal vent settings. Will extubate 2. Worsening renal function, could be secondary to over diuresis, hold on lasix but hold on giving fluids as well 3. Bipap PRN 4. BP control 5. Once extubated and monitored, can likely be transferred to tele CCT 31 minutes.
--- NOTE | 2021-08-23 10:53 | Ultrasound Report ---
ULTRASOUND ABDOMEN, LIMITED (RIGHT UPPER QUADRANT) INDICATION: pancreatitis COMPARISON: None available. LIMITATIONS: None FINDINGS: Pancreas: Visualized portion shows no significant abnormality. Liver: Normal. Main Portal Vein: Normal flow seen. Gallbladder: Normal. Bile ducts: Normal. Common Bile Duct measures 4 mm. Right Kidney: Visualized portions show no abnormality. Free fluid: None. Additional Findings: None. IMPRESSION: No acute abnormalities are seen. Signer Name: Martin Pineda MD Signed: 08/23/2021 10:49 AM Workstation Name: [email or web address]
--- NOTE | 2021-08-23 11:33 | Progress Note ---
Assessment and Plan This is a 61-year-old male, seen 2 days ago in our clinic by Dr. Geraldo Man without complaints, with past medical history of coronary artery disease status post PCI, CO on DAPT, hypertension, heart failure, hyperlipidemia, who presented to the hospital complaining of shortness of breath. Now intubated in ICU in pulmonary edema. Assessment Acute hypoxemic respiratory failure Acute on chronic HFrEF Pulmonary edema - improved JL Coronary artery disease status post PCI Hypertensive emergency- resolved. now slightly hypotensive Elevated Liver enzymes Cardiographics EKG-08/22/21--sinus rhythm with PVCs, LAE, consider biatrial enlargement, LV hypertrophy, inferior infarct, old. Anterolateral infarct, age indeterminant compared Chest x-ray 08/22/21- Findings suggest pulmonary edema Echocardiogram- EF 35 to 40%. LV is normal size. LV function is modertely decreased. EF unchanged from previous. Stress test- 05/27/21: ECG findings: Positive for ischemia. Clinical findings: Negative for ischemia. Nuclear findings: Negative for ischemia. Negative Jazmine can. Large apical infarct and moderate infarct in anterior apical and inferior apical and EF 23%. Akinesis of apical and anterior and inferior apical region, no significant ischemia noted. Cath- None. Recommendations/plan Update-- this afternoon, pt extubated and able to discuss recent symptoms. Stated that he was feeling totally normal when he awoke around 0500 on day relief [employer] with severe SOB and felt he might have had he waited one hour longer. He states the only other symptom that occurred was 1 week prior to symptom onset he had pain in his right foot that caused him to limp for 1 week. - Additionally, he stated he returned from [place] 1 month ago and when he returned, was without his medications (including asa/plavix) for 1-2 weeks. - Due to sudden onset of his symptoms/pulm edema/RLE pain, will order BLE venous doppler to r/o DVT. 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 08/23/21 EKG Unchanged from previous. Repeat echocardiogram with no change in EF. Hold diuresis given worsening renal function. Patient with elevated liver enzymes. Hold off on statin for now. Recommend trending AST/ALT/triglycerides/Amylase/Lipase per primary team. GDMT: -- Up-titrate therapies as renal function and hemodynamic status improves. -- No LARRY/ARB/ARNI in the setting of JL. (Last known dose of Entresto 08/19 per [facility] documentation). -- Will need BB added when BP allows. Continue baby aspirin and plavix 75 mg PO qday Will continue to follow along. Patient seen in conjunction with Dr. De La Cruz who agrees with the assessment and management of this patient. - Patient Problems (1) Acute on chronic HFrEF (heart failure with reduced ejection fraction) Current Visit: Yes Status: Acute (2) JL (acute kidney injury) Current Visit: Yes Status: Acute (3) Acute respiratory failure with hypoxia and hypercapnia Current Visit: Yes Status: Acute (4) History of coronary artery disease Current Visit: Yes Status: Acute (5) Hypertensive emergency Current Visit: Yes Status: Acute (6) Pulmonary edema Current Visit: Yes Status: Acute Qualifiers: Chronicity: acute Qualified Code(s): J81.0 - Acute pulmonary edema (7) Acute hypoxemic respiratory failure Current Visit: Yes Status: Acute Subjective Date of service: 08/23/21 Principal diagnosis: Pulmonary edema Interval history: Patient seen and examined the intensive care unit today. Patient has significantly improved. He is awake, following commands, and is writing coheren t thoughts with pen and paper while ventilated. He denies chest pain. He is giving gestures/writing that he was just having significant trouble breathing yesterday prior to arrival. Significant improvement seen today Telemetry: Sinus rhythm Intake & Output 08/22/21 08/23/21 08/23/21 23:59 07:59 15:59 Intake Total 22.956 84.721 81.261 Output Total 800 Balance -777.044 84.721 81.261 Objective Vital Signs Temp Pulse Pulse Resp BP BP Pulse Ox 08/23/21 11:00 74 13 107/73 98 08/23/21 10:50 79 10 L 103/67 98 08/23/21 10:40 79 12 103/67 97 08/23/21 10:30 79 11 L 106/75 97 08/23/21 10:20 77 12 106/75 98 08/23/21 10:10 77 11 L 89/64 99 08/23/21 10:00 73 16 89/64 97 08/23/21 09:50 72 18 89/64 96 08/23/21 09:40 70 18 89/64 98 08/23/21 09:30 74 10 L 89/64 99 08/23/21 09:20 71 18 96/71 96 08/23/21 09:10 75 12 96/71 96 08/23/21 09:00 75 19 96/71 99 08/23/21 08:50 76 12 83/58 100 08/23/21 08:40 76 19 83/58 99 08/23/21 08:30 73 18 83/58 99 08/23/21 08:20 79 15 94/52 100 08/23/21 08:10 74 11 L 94/52 100 08/23/21 08:00 72 18 71/48 98 08/23/21 07:50 73 18 83/56 98 08/23/21 07:40 72 18 83/56 99 08/23/21 07:30 76 18 83/56 100 08/23/21 07:22 97.8 F 08/23/21 07:20 74 18 99/69 99 08/23/21 07:10 77 22 87/62 100 08/23/21 07:00 74 19 89/62 100 08/23/21 06:50 70 18 83/55 99 08/23/21 06:40 69 16 83/55 98 08/23/21 06:30 69 16 83/55 98 08/23/21 06:20 69 16 83/55 98 08/23/21 06:10 70 19 83/55 98 08/23/21 06:00 69 17 83/55 99 08/23/21 05:50 69 17 83/52 98 08/23/21 05:40 72 18 83/52 98 08/23/21 05:30 74 17 83/52 97 08/23/21 05:20 75 16 83/52 100 08/23/21 05:10 73 18 83/52 100 08/23/21 05:00 73 18 83/52 100 08/23/21 04:50 74 15 87/55 100 08/23/21 04:40 74 19 87/55 100 08/23/21 04:34 75 87/55 100 08/23/21 04:30 76 17 87/55 100 08/23/21 04:20 74 17 87/55 100 08/23/21 04:10 73 18 87/55 99 08/23/21 04:00 97.5 F L 75 76 16 87/55 100 08/23/21 03:50 80 15 91/59 100 08/23/21 03:40 78 17 91/59 100 08/23/21 03:30 77 14 91/59 100 08/23/21 03:20 78 17 91/59 100 08/23/21 03:10 78 11 L 91/59 100 08/23/21 03:00 76 17 91/59 100 08/23/21 02:50 77 12 98/62 100 08/23/21 02:40 79 18 98/62 100 08/23/21 02:30 79 18 98/62 100 08/23/21 02:20 78 17 98/62 100 08/23/21 02:10 78 13 98/62 100 08/23/21 02:00 77 14 98/62 100 08/23/21 01:50 72 12 88/58 100 08/23/21 01:40 72 12 88/58 100 08/23/21 01:30 72 13 88/58 100 08/23/21 01:20 71 18 88/58 100 08/23/21 01:10 71 13 88/58 100 08/23/21 01:00 70 18 88/58 100 08/23/21 00:50 71 17 86/54 100 08/23/21 00:40 71 18 86/54 100 08/23/21 00:30 70 17 86/54 100 08/23/21 00:20 69 13 86/54 100 08/23/21 00:10 71 19 86/54 100 08/23/21 00:00 98 F 70 76 13 86/54 100 08/22/21 23:56 69 16 87/60 99 08/22/21 23:50 69 17 87/60 100 22 23:46 68 87/60 100 22 23:40 68 16 87/60 100 22 23:30 69 11 L 87/60 100 08/22/21 23:20 70 12 87/60 100 22 23:10 68 12 87/60 100 22 23:00 68 17 87/60 100 08/22/21 22:50 66 17 102/62 100 08/22/21 22:40 66 16 102/62 100 08/22/21 22:30 65 18 102/62 100 08/22/21 22:20 66 16 102/62 99 08/22/21 22:10 65 18 102/62 100 08/22/21 22:00 66 14 102/62 100 08/22/21 21:50 67 19 88/61 99 08/22/21 21:40 65 19 88/61 99 08/22/21 21:30 64 15 88/61 99 08/22/21 21:20 65 11 L 88/61 99 08/22/21 21:10 66 16 88/61 100 08/22/21 21:00 66 76 17 88/61 98 08/22/21 20:50 67 18 78/56 99 08/22/21 20:40 68 18 78/56 99 08/22/21 20:30 67 17 78/56 98 08/22/21 20:20 68 17 90/59 98 08/22/21 20:10 69 17 90/59 99 08/22/21 20:00 97.8 F 68 17 90/59 100 08/22/21 19:50 70 13 93/68 98 08/22/21 19:48 69 90/59 99 08/22/21 19:40 69 11 L 93/68 98 08/22/21 19:30 73 12 93/68 98 08/22/21 19:20 76 13 119/90 98 08/22/21 19:10 76 13 119/90 98 08/22/21 19:00 75 76 15 119/90 98 08/22/21 18:50 75 17 99 08/22/21 18:40 77 19 151/105 98 08/22/21 18:30 76 26 H 151/105 98 08/22/21 18:21 66 15 153/111 98 08/22/21 18:11 71 21 153/111 99 08/22/21 18:01 74 22 153/111 100 08/22/21 17:51 76 24 127/97 100 08/22/21 17:41 75 25 H 127/97 100 08/22/21 17:30 70 23 127/97 98 08/22/21 17:21 70 27 H 120/93 98 08/22/21 17:15 96 08/22/21 17:12 97.9 F 08/22/21 17:11 69 28 H 120/93 98 08/22/21 17:06 71 27 H 97 08/22/21 17:00 76 29 H 100 08/22/21 16:45 74 98 08/22/21 15:53 76 105/83 99 08/22/21 15:52 76 105/83 99 08/22/21 15:51 75 109/87 99 08/22/21 15:49 76 109/87 99 08/22/21 15:47 76 109/87 99 08/22/21 15:45 77 109/87 99 08/22/21 15:43 75 109/87 99 08/22/21 15:42 75 109/87 99 08/22/21 15:41 75 120/94 99 08/22/21 15:39 76 120/94 99 08/22/21 15:37 77 120/94 98 08/22/21 15:35 74 120/94 99 08/22/21 15:33 73 120/94 98 08/22/21 15:31 77 107/81 99 08/22/21 15:29 73 107/81 98 08/22/21 15:27 75 107/81 98 08/22/21 15:25 73 107/81 99 08/22/21 15:23 76 107/81 99 08/22/21 15:22 76 107/81 99 08/22/21 15:21 76 109/78 99 08/22/21 15:19 76 109/78 99 08/22/21 15:17 75 109/78 99 08/22/21 15:15 74 109/78 99 08/22/21 15:13 75 109/78 99 08/22/21 15:12 75 109/78 99 08/22/21 15:11 77 101/76 99 08/22/21 15:09 74 101/76 99 08/22/21 15:07 76 101/76 99 08/22/21 15:05 77 101/76 99 08/22/21 15:03 77 101/76 99 08/22/21 15:02 76 101/76 99 08/22/21 15:01 76 99/70 99 08/22/21 14:59 76 99/70 99 08/22/21 14:57 77 99/70 99 08/22/21 14:55 77 99/70 99 08/22/21 14:53 77 99/70 99 04/21/22 14:52 77 99/70 99 08/22/21 14:51 76 105/80 99 08/22/21 14:49 78 105/80 99 08/22/21 14:47 78 105/80 99 08/22/21 14:45 77 105/80 99 08/22/21 14:43 76 105/80 99 08/22/21 14:42 76 105/80 99 08/22/21 14:41 76 108/83 99 08/22/21 14:39 76 108/83 99 08/22/21 14:37 81 108/83 98 08/22/21 14:35 78 108/83 100 08/22/21 14:33 76 108/83 100 08/22/21 14:32 75 108/83 99 08/22/21 14:31 77 110/86 99 08/22/21 14:29 79 110/86 99 08/22/21 14:27 77 110/86 99 08/22/21 14:25 79 110/86 99 08/22/21 14:23 80 110/86 99 08/22/21 14:22 83 110/86 99 08/22/21 14:21 82 97/71 99 08/22/21 14:19 84 97/71 97 08/22/21 14:17 81 97/71 99 08/22/21 14:15 82 97/71 98 08/22/21 14:13 83 97/71 98 08/22/21 14:12 83 97/71 98 08/22/21 14:11 83 98/72 98 08/22/21 14:09 85 98/72 97 08/22/21 14:07 86 40 H 98/72 98/72 96 08/22/21 14:01 91 H 97 08/22/21 13:54 92 H 97 08/22/21 12:15 97 H 174/126 93 08/22/21 12:00 79 166/118 91 08/22/21 11:45 51 L 170/129 88 08/22/21 11:31 76 174/126 83 L - Physical Examination General: No Apparent Distress HEENT: Positive: Normocephaly, Mucus Membranes Moist Cardiac: Positive: Regular Rhythm, S1/S2 Lungs: Positive: Rhonchi, Ventilated Respirations Neuro: Positive: Other (Awake and following commands on the ventilator.) Abdomen: Positive: Soft Skin: Negative: Rash Extremities: Absent: edema - Labs and Meds Cardiac Enzymes 08/23/21 Range/Units 04:14 AST 43 H (5-40) units/L Lipids 08/22/21 Range/Units 13:04 Triglycerides 1052 H (2-149) mg/dL Cholesterol 259 H (50-199) mg/dL HDL Cholesterol 52 (40-59) mg/dL Cholesterol/HDL Ratio 4.98 % CBC 08/22/21 08/23/21 Range/Units 10:30 04:14 WBC 9.3 8.6 (4.5-11.0) K/mm3 RBC 5.54 H 5.21 H (3.65-5.03) M/mm3 Hgb 16.4 H 15.6 H (11.8-15.2) gm/dl Hct 52.3 H 47.6 H (35.5-45.6) % Plt Count 158 111 L (140-440) K/mm3 Lymph # (Auto) [employer]er 0.9 L Wirt # (Auto) 0.5 (0.0-0.8) K/mm3 Eos # (Auto) 0.0 (0.0-0.4) K/mm3 Baso # (Auto) 0.0 (0.0-0.1) K/mm3 Comprehensive Metabolic Panel 08/23/21 Range/Units 04:14 Sodium 146 H (137-145) mmol/L Potassium 5.1 H D (3.6-5.0) mmol/L Chloride 105.5 (98-107) mmol/L Carbon Dioxide 22 (22-30) mmol/L BUN 32 H (9-20) mg/dL Creatinine 3.0 H D (0.8-1.3) mg/dL Glucose 75 (75-100) mg/dL Calcium 8.9 (8.4-10.2) mg/dL AST 43 H (5-40) units/L ALT 50 (7-56) units/L Alkaline Phosphatase 73 (35-129) units/L Total Protein 6.7 (6.3-8.2) g/dL Albumin 3.8 L (3.9-5) g/dL - Imaging and Cardiology EKG: report reviewed (Sinus tachycardia.) Echo: report reviewed - Telemetry EKG Rhythm: Sinus Rhythm - EKG Sinus rhythms and dysrhythmias: sinus rhythm Ventricular dysrhythmias: ventricular premature com Myocardial infarction: anterior CO (old age or i, lateral CO (old age or in
--- NOTE | 2021-08-23 12:22 | Progress Note ---
Assessment and Plan Assessment and plan: This is a 61 year old male with KS (2018), CAD s/p PCI with stent placement (2018), HTN, systolic HF, current smoker admitted with CHF excerbation and acute hypoxic resp failure. Neuro: NAD -Avoid delirium -Reorientation as needed -Maintain sleep-wake cycle -As needed analgesia Cardiac: Acute on Chronic Systolic Heart failure, h/o CAD s/p PCI with stent (2018), HTN -Cardiology consulted, appreciate recommendations -Blood pressure monitoring per protocol -Plavix and ASA 81 -Per cardiology: Echocardiogram-previous EF 35 to 40%. Stress test- 05/27/21: ECG findings: Positive for ischemia. Clinical findings: Negative for ischemia. Nuclear findings: Negative for ischemia. Negative Lexiscan. Large apical infarct and moderate infarct in anterior apical and inferior apical and EF 23%. Akinesis of apical and anterior and inferior apical region, no significant ischemia noted. -proBNP 2518 -Lipid panel: triclyceride 1052, Cholosterol 259, LDL 158, HDL 52 Respiratory: Acute hypoxic respiratory failure, current nicotine abuse -CCM consulted, appreciate recommendations -Intubated 7.5 OETT at 22 at the teeth on 08/22 -A.m. vent settings: PRVC/AC R 18, TV 475, Peep 10, FiO2 40% -See RT notes for titration -PSV this am -Extubated on 08/23 to NC 2L -A.m. ABG and CXR noted -VAP bundle -SPO2 monitoring GI: NAD -24 hours -725 mL -PPI -Lipase 23, amylase 168 -Abd US with no acute abnormalities -BR: senokot : Acute Kidney Injury maybe drug induced, hyperkalemia, slight hypernatremia -Patient was on lasix 40 BID IV which was stopped -Strict intake and output -Renally dose medications -Avoid nephrotoxic medications -Daily weights -FeUrea 10.5 suggesting prerenal but in setting of EF will hold off IVF -Trend BMP ID: NAD -f/u blood culture -Monitor WBC and temperature curve Endo: NAD -Avoid hypoglycemia Heme: NAD -Trend CBC -Transfuse hemoglobin less than 7 -Monitor for signs of bleeding -SCDs to BLE while in bed -Lovenox changed to heparin The high probability of a clinically significant, sudden or life threatening deterioration of the [cardio/resp] system(s) required my full and direct attention, intervention and personal management. The aggregate critical care time was [60] minutes. This time is in addition to time spent performing reported procedures but includes the following: [x] Data Review and interpretation [x] Patient assessment and monitoring of vital signs [x] Documentation [x] Medication orders and management Disposition Plan: icu Total Time Spent with Patient (Minutes): 60 History Interval history: This is 61 year old male with KS (2018), CAD s/p PCI with stent placement in 2018, HTN, Systolic HF, current smoker who presented to the hospital on 08/22 with severe SOB and he presented to the fire dept where he was sevrely diaphoratic and hypoxic with SPO2 60% and was placed on CPAP and given aspirin. In the emergeny department he was placed in BiPAP and was eventully intubated. He was admitted to the hospitalist dominique with acute hypoxic resp failure and CHF exacerbation with consults to [facility] and cardiology. Hospital course to date: 08/23: extubated today, stopped spirnlactone and lasix due to increase in renal function. Echo pending. Adjust dose of tricor, urine lytes pending and [facility] plans to extubate. RN to complete BS swallow eval and if fails then will obtain speech eval. Hospitalist Physical - Constitutional Vitals: Temp Pulse Resp BP Pulse Ox 97.8 F 81 18 98/74 99 08/23/21 11:47 08/23/21 12:00 08/23/21 12:00 08/23/21 12:00 08/23/21 12:00 General appearance: Present: no acute distress, well-nourished - EENT Eyes: Present: PERRL, EOM intact ENT: hearing intact, clear oral mucosa, dentition normal - Neck Neck: Present: normal ROM - Respiratory Respiratory effort: normal Respiratory: bilateral: CTA - Cardiovascular Rhythm: regular Heart Sounds: Present: S1 & S2. Absent: systolic murmur, diastolic murmur - Extremities Extremities: no ischemia, pulses intact, pulses symmetrical, No edema, normal temperature, normal color Peripheral Pulses: within normal limits - Abdominal General gastrointestinal: soft, non-tender, non-distended, normal bowel sounds - Integumentary Integumentary: Present: warm, dry - Psychiatric Psychiatric: appropriate mood/affect, cooperative - Neurologic Neurologic: CNII-XII intact, no focal deficits, moves all extremities - Allied Health Allied health notes reviewed: nursing, RT, social work HEART Score - HEART Score Age: 45-65 Risk factors: > 3 risk factors or hx of atherosclerotic disease Troponin: Troponin T 0.087 ng/mL (0.00-0.029) H D 08/22/21 20:25 Troponin: 1-3x normal limit - Critical Actions Critical Actions: 4-6 pts:12-16.6% risk of adverse cardiac event. Should be admitted Results - Labs CBC & Chem 7: 08/23/21 04:14 08/23/21 04:14 Labs: Laboratory Last Values WBC 8.6 K/mm3 (4.5-11.0) 08/23/21 04:14 RBC 5.21 M/mm3 (3.65-5.03) H 08/23/21 04:14 Hgb 15.6 gm/dl (11.8-15.2) H 08/23/21 04:14 Hct 47.6 % (35.5-45.6) H 08/23/21 04:14 MCV 91 fl (84-94) 08/23/21 04:14 MCH 30 pg (28-32) 08/23/21 04:14 MCHC 33 % (32-34) 08/23/21 04:14 RDW 13.4 % (13.2-15.2) 08/23/21 04:14 Plt Count 111 K/mm3 (140-440) L 08/23/21 04:14 Lymph % (Auto) 10.1 % (13.4-35.0) L 08/23/21 04:14 [place] % (Auto) 6.0 % (0.0-7.3) 08/23/21 04:14 Eos % (Auto) 0.0 % (0.0-4.3) 08/23/21 04:14 Baso % (Auto) 0.3 % (0.0-1.8) 08/23/21 04:14 Lymph # (Auto) 0.9 K/mm3 (1.2-5.4) L 08/23/21 04:14 [place] # (Auto) 0.5 K/mm3 (0.0-0.8) 08/23/21 04:14 Eos # (Auto) 0.0 K/mm3 (0.0-0.4) 08/23/21 04:14 Baso # (Auto) 0.0 K/mm3 (0.0-0.1) 08/23/21 04:14 Add Manual Diff Complete 08/22/21 10:30 Total Counted 100 08/22/21 10:30 Seg Neutrophils % 83.6 % (40.0-70.0) H 08/23/21 04:14 Seg Neuts % (Manual) 46.0 % (40.0-70.0) 08/22/21 10:30 Band Neutrophils % 2.0 % 08/22/21 10:30 Lymphocytes % (Manual) 34.0 % (13.4-35.0) 08/22/21 10:30 Reactive Lymphs % (Man) 0 % 08/22/21 10:30 Monocytes % (Manual) 8.0 % (0.0-7.3) H 08/22/21 10:30 Eosinophils % (Manual) 9.0 % (0.0-4.3) H 08/22/21 10:30 Basophils % (Manual) 0 % (0.0-1.8) 08/22/21 10:30 Metamyelocytes % 0 % 08/22/21 10:30 Myelocytes % 1.0 % 08/22/21 10:30 Promyelocytes % 0 % 08/22/21 10:30 Blast Cells % 0 % 08/22/21 10:30 Nucleated RBC % Not Reportable 08/22/21 10:30 Seg Neutrophils # 7.2 K/mm3 (1.8-7.7) 08/23/21 04:14 Seg Neutrophils # Man 4.3 K/mm3 (1.8-7.7) 08/22/21 10:30 Band Neutrophils # 0.2 K/mm3 08/22/21 10:30 Lymphocytes # (Manual) 3.2 K/mm3 (1.2-5.4) 08/22/21 10:30 Abs React Lymphs (Man) 0.0 K/mm3 08/22/21 10:30 Monocytes # (Manual) 0.7 K/mm3 (0.0-0.8) 08/22/21 10:30 Eosinophils # (Manual) 0.8 K/mm3 (0.0-0.4) H 08/22/21 10:30 Basophils # (Manual) 0.0 K/mm3 (0.0-0.1) 08/22/21 10:30 Metamyelocytes # 0.0 K/mm3 08/22/21 10:30 Myelocytes # 0.1 K/mm3 08/22/21 10:30 Promyelocytes # 0.0 K/mm3 08/22/21 10:30 Blast Cells # 0.0 K/mm3 08/22/21 10:30 WBC Morphology Not Reportable 08/22/21 10:30 Hypersegmented Neuts Not Reportable 08/22/21 10:30 Hyposegmented Neuts Not Reportable 08/22/21 10:30 Hypogranular Neuts Not Reportable 08/22/21 10:30 Smudge Cells Not Reportable 08/22/21 10:30 Toxic Granulation Not Reportable 08/22/21 10:30 Toxic Vacuolation Not Reportable 08/22/21 10:30 Dohle Bodies Not Reportable 08/22/21 10:30 Pelger-Huet Anomaly Not Reportable 08/22/21 10:30 Hansel Rods Not Reportable 08/22/21 10:30 Platelet Estimate Consistent w auto 08/22/21 10:30 Clumped Platelets Not Reportable 08/22/21 10:30 Plt Clumps, EDTA Not Reportable 08/22/21 10:30 Large Platelets Not Reportable 08/22/21 10:30 Giant Platelets Not Reportable 08/22/21 10:30 Platelet Satelliting Not Reportable 08/22/21 10:30 Plt Morphology Comment Not Reportable 08/22/21 10:30 RBC Morphology Not Reportable 08/22/21 10:30 Dimorphic RBCs Not Reportable 08/22/21 10:30 Polychromasia Not Reportable 08/22/21 10:30 Hypochromasia Not Reportable 08/22/21 10:30 Poikilocytosis Not Reportable 08/22/21 10:30 Anisocytosis Not Reportable 08/22/21 10:30 Microcytosis Not Reportable 08/22/21 10:30 Macrocytosis Not Reportable 08/22/21 10:30 Spherocytes Not Reportable 08/22/21 10:30 Pappenheimer Bodies Not Reportable 08/22/21 10:30 Sickle Cells Not Reportable 08/22/21 10:30 Target Cells Not Reportable 08/22/21 10:30 Tear Drop Cells Not Reportable 08/22/21 10:30 Ovalocytes Not Reportable 08/22/21 10:30 Helmet Cells Not Reportable 08/22/21 10:30 [place] Bodies Not Reportable 08/22/21 10:30 [place] Rings Not Reportable 08/22/21 10:30 Noemi Cells Not Reportable 08/22/21 10:30 Bite Cells Not Reportable 08/22/21 10:30 Crenated Cell Not Reportable 08/22/21 10:30 Elliptocytes Not Reportable 08/22/21 10:30 Acanthocytes (Spur) Not Reportable 08/22/21 10:30 Rouleaux Not Reportable 08/22/21 10:30 Hemoglobin C Crystals Not Reportable 08/22/21 10:30 Schistocytes Not Reportable 08/22/21 10:30 Malaria parasites Not Reportable 08/22/21 10:30 [place] Bodies Not Reportable 08/22/21 10:30 Hem Pathologist Commnt No 08/22/21 10:30 PT 14.7 Sec. (12.2-14.9) 08/22/21 10:30 INR 1.03 (0.87-1.13) 08/22/21 10:30 APTT 36.5 Sec. (24.2-36.6) 08/22/21 10:30 ABG pH 7.329 pH Units (7.350-7.450) L 08/23/21 04:15 ABG pCO2 40.0 mm Hg 08/23/21 04:15 ABG pO2 144.3 mm Hg (80.0-90.0) H 08/23/21 04:15 ABG HCO3 20.5 mmol/L (20.0-26.0) 08/23/21 04:15 ABG O2 Saturation 98.7 % (95.0-99.0) 08/23/21 04:15 ABG O2 Content 21.2 (0.0-44) 08/23/21 04:15 ABG Base Excess -5.0 mmol/L (-2.0-3.0) L 08/23/21 04:15 ABG Hemoglobin 15.5 gm/dl (14.0-18.0) 08/23/21 04:15 ABG Carboxyhemoglobin 1.1 % (0.0-5.0) 08/23/21 04:15 ABG Methemoglobin 0.9 % (0.0-1.5) 08/23/21 04:15 Oxyhemoglobin 96.7 % (95.0-99.0) 08/23/21 04:15 FiO2 60 % 08/23/21 04:15 Sodium 146 mmol/L (137-145) H 08/23/21 04:14 Potassium 5.1 mmol/L (3.6-5.0) H D 08/23/21 04:14 Chloride 105.5 mmol/L (98-107) 08/23/21 04:14 Carbon Dioxide 22 mmol/L (22-30) 08/23/21 04:14 Anion Gap 24 mmol/L 08/23/21 04:14 BUN 32 mg/dL (9-20) H 08/23/21 04:14 Creatinine 3.0 mg/dL (0.8-1.3) H D 08/23/21 04:14 Estimated GFR 26 ml/min 08/23/21 04:14 BUN/Creatinine Ratio 11 % 08/23/21 04:14 Glucose 75 mg/dL (75-100) 08/23/21 04:14 Calcium 8.9 mg/dL (8.4-10.2) 08/23/21 04:14 Magnesium 2.40 mg/dL (1.7-2.3) H 08/22/21 10:30 Total Bilirubin 1.30 mg/dL (0.1-1.2) H 08/23/21 04:14 AST 43 units/L (5-40) H 08/23/21 04:14 ALT 50 units/L (7-56) 08/23/21 04:14 Alkaline Phosphatase 73 units/L (35-129) 08/23/21 04:14 Troponin T 0.087 ng/mL (0.00-0.029) H D 08/22/21 20:25 NT-Pro-B Natriuret Pep 2518 pg/mL (0-900) H 08/22/21 10:30 Total Protein 6.7 g/dL (6.3-8.2) 08/23/21 04:14 Albumin 3.8 g/dL (3.9-5) L 08/23/21 04:14 Albumin/Globulin Ratio 1.3 % 08/23/21 04:14 Triglycerides 1052 mg/dL (2-149) H 08/22/21 13:04 Cholesterol 259 mg/dL (50-199) H 08/22/21 13:04 LDL Cholesterol Direct 158 mg/dL (50-130) H 08/22/21 13:04 HDL Cholesterol 52 mg/dL (40-59) 08/22/21 13:04 Cholesterol/HDL Ratio 4.98 % 08/22/21 13:04 Amylase 168 units/L (27-131) H 08/22/21 20:25 Lipase 23 units/L (13-60) 08/22/21 20:25 Urine Creatinine 236.9 mg/dL (0.1-20.0) H 08/23/21 09:03 Urine Sodium 17 mmol/L 08/23/21 09:03 Urine Urea Nitrogen 276 08/23/21 09:03 Urine Opiates Screen Negative 08/22/21 Unknown Urine Methadone Screen Negative 08/22/21 Unknown Ur Barbiturates Screen Negative 08/22/21 Unknown Ur Phencyclidine Scrn Negative 08/22/21 Unknown Ur Amphetamines Screen Negative 08/22/21 Unknown U Benzodiazepines Scrn Negative 08/22/21 Unknown Urine Cocaine Screen Negative 08/22/21 Unknown U Marijuana (THC) Screen Positive 08/22/21 Unknown Drugs of Abuse Note Disclamer 08/22/21 Unknown [place]/IV: Voiding Method Condom Catheter Active Medications - Current Medications Current Medications: Generic Name Dose Route Start Last Admin Trade Name Freq PRN Reason Stop Dose Admin Acetaminophen 650 mg 08/22/21 12:54 Acetaminophen 650 Mg Rect Supp FL Q4H PRN Pain MILD(1-3)/Fever >100.5/COOK Aspirin 81 mg 08/22/21 16:00 08/23/21 10:36 Aspirin 81 Mg Tab Chew PO 81 mg QDAY KAYLYNN Administration Clopidogrel Bisulfate 75 mg 08/22/21 16:00 08/23/21 10:36 Clopidogrel 75 Mg Tab PO 75 mg QDAY KAYLYNN Administration Famotidine 10 mg 08/23/21 10:00 08/23/21 10:37 Famotidine 20 Mg/2 Ml Inj IV 10 mg BID KAYLYNN Administration Fenofibrate 48 mg 08/23/21 10:00 08/23/21 10:36 Fenofibrate 48 Mg Tab PO 48 mg DAILY KAYLYNN Administration Hydrophilic Ointment 1 applic 08/22/21 11:29 Lip Therapy Vaseline TP Q2HR PRN Dry Lips Metoclopramide HCl 10 mg 08/22/21 12:54 Metoclopramide 10 Mg/2 Ml Inj IV Q6H PRN Nausea And Vomiting Multi-Ingred Cream/Lotion/Oil/Oint 1 applic 08/22/21 11:29 Mineral Oil/Petrolatum, White Ophth Oint 3.5 Gm OU Q4HR PRN Dry Eye(s) Ondansetron HCl 4 mg 08/22/21 12:54 08/23/21 05:11 Ondansetron 4 Mg/2 Ml Inj IV 4 mg Q3H PRN Administration Nausea And Vomiting Senna/Docusate Sodium 1 tab 08/22/21 22:00 08/23/21 10:36 Sennosides/Docusate Sodium 8.6/50 Mg Tab FEEDTUBE 1 tab BID KAYLYNN Administration Sodium Chloride 10 ml 08/22/21 22:00 08/23/21 10:37 Sodium Chloride 0.9% 10 Ml Flush Syringe IV 10 ml BID KAYLYNN Administration Sodium Chloride 10 ml 08/22/21 12:54 Sodium Chloride 0.9% 10 Ml Flush Syringe IV PRN PRN LINE FLUSH Nutrition/Malnutrition Assess - Dietary Evaluation Nutrition/Malnutrition Findings: Nutrition Notes Start: 08/22/21 15:04 Freq: Status: Active Protocol: Document 08/22/21 15:05 OWEN (Rec: 08/22/21 15:44 OWEN [id number]) Nutrition Notes Need for Assessment generated from: MD Order Initial or Follow up Assessment Current Diagnosis Coronary Artery Disease, Hypertension,Respiratory Failure Other Pertinent Diagnosis Pulmonary Edema, CHF, [place] s/p PCI w/Stent, AMS. Current Diet N/A. Labs/Tests 08/22: CO2 16, Crea 1.7, Glu 255, Mg 2.4. Pertinent Medications 08/22: Propofol @ 24.494 ml/hr (647 Kcal), others nutritionally unremarkable. Height 6 ft Weight 81.647 kg [place] Body Weight (kg) 80.90 BMI 24.4 Weight change and time frame None reported at admission. Weight Status Appropriate Subjective/Other Information RD consult to evaluate nutritional intake. There is no diet order on chart. No evaluation is possible at the time. Will assess at F/U. Pt is on mechanical ventilation. I will prescribe TF to be ordered whenever pertinent. Percent of energy/protein needs met: N/A. Prescribed TF-Vital AF 1.2 Rohan @ 50 ml/hr would provide for energy/protein needs (1,450 Kcal/91 g) during LOS. Including Propofol; pt will be provided with 105% Kcal; 92% AA. Burn Absent Trauma Absent GI Symptoms None Skin Integrity/Comment No data Current % PO Other Minimum of two criteria No #1 Nutrition Diagnosis Inadequate oral intake Etiology Pt on Mechanical Ventilation. As Evidenced by Signs and Symptoms Currently on NPO. Is patient on ventilator? Yes Is Patient Ambulatory and/or Out of Bed No REE-([facility]-confined to bed) 1989.332 Calculation Used for Recommendations [facility] Additional Notes Protein: 1.2-2 g/Kg ABW; 98- 164 g/day. Fluids: 1 ml/Kcal, or as per MD. Nutrition Intervention Nutrition Support: When pertinent, start TF-Vital AF 1.2 Rohan @ 50 ml/hr. Flush: 170 ml water Q 4 hr, or as per MD. Kcal 1,450 Protein (gm) 91 Carbohydrates (gm) 134 Fat (gm) 65 Fluid (mL) 980 Fiber (gm) 6 % RDI: 73% Kcal; 92% AA. Goal #1 Provide at least 75% of energy /protein needs through Enteral Feeding during LOS. Goal #2 Maintain body weight within +/ -3% of admission body weight during LOS. Follow-Up By: 08/24/21 Additional Comments When pertinent, startmonitoring TF tolerance and BM.
--- NOTE | 2021-08-23 16:50 | Vascular Lab Report ---
DUPLEX DOPPLER LOWER EXTREMITY VEINS, BILATERAL INDICATION / CLINICAL INFORMATION: RLE pain, recent prolonged immobilization, r/o DVT. TECHNIQUE: Duplex doppler imaging was performed through the veins of both lower extremities using maria t ous compression and other maneuvers. COMPARISON: None available. FINDINGS: RIGHT COMMON FEMORAL VEIN: Negative. RIGHT FEMORAL VEIN: Negative. RIGHT POPLITEAL VEIN: Negative. RIGHT CALF VEINS: Negative. LEFT COMMON FEMORAL VEIN: Negative. LEFT FEMORAL VEIN: Negative. LEFT POPLITEAL VEIN: Negative. LEFT CALF VEINS: Negative. ADDITIONAL FINDINGS: None. IMPRESSION: 1. No sonographic evidence for DVT in either lower extremity. Scribed by: Anne-Marie Covington RDMS, RONY, ESTEFANY Scribed: 08/23/2021 3:21 PM I have reviewed the images, agree with this report, and edited this report as needed. Signer Name: Tad Richey MD Signed: 08/23/2021 4:43 PM Workstation Name: [id number]
[2021-08-23] MEDS: FAMOTIDINE 10 MG TAB PO SCH (22:27)
[2021-08-23] MEDS: SENNOSIDES/DOCUSATE SODIUM 8.6/50 MG TAB PO SCH (22:27)
[2021-08-24 05:20] LABS: Hematocrit 42.9 % (35.5-45.6); Hemoglobin 13.8 gm/dl (11.8-15.2); Mean Corpuscular HGB Conc 32 % (32-34); Mean Corpuscular Volume 91 fl (84-94); Platelet Count 101 K/mm3 (140-440); Red Cell Distribution Width 13.6 % (13.2-15.2)
[2021-08-24 05:41] LABS: Albumin 3.6 g/dL (3.9-5); Calcium 9.2 mg/dL (8.4-10.2)
--- NOTE | 2021-08-24 08:39 | Progress Note ---
Assessment and Plan Assessment and plan: This is a 61 year old male with DC (2018), CAD s/p PCI with stent placement (2018), HTN, systolic HF, current smoker admitted with CHF excerbation and acute hypoxic respiratory failure. #Acute on chronic systolic heart failure #Hypertensive emergencyresolved - Continue CHF exacerbation protocol: Telemetry, Strict I/O, monitor urine output every shift, daily weights, afterload reduction, low-sodium diet, and fluid restriction of approximately 1.5 mL/day, and diuresis - Supplemental oxygen: 2 L nasal cannula - ProBNP on admission: 2518 - Cardiology consulted; appreciate recs -TTE revealing EF 35 to 40%. LV is normal size. LV function is moderately decreased. EF unchanged from previous. Lipid panel: triclyceride 1052, Cholosterol 259, LDL 158, HDL 52 - Continue to monitor #Acute hypoxic respiratory failure - etiology: Secondary to volume overload secondary to heart failure - baseline oxygen requirements: Room air - supplemental oxygen: 2 L nasal cannula Intubated on 08/22 and extubated on 08/23 - Continue protocol: continue pulse oximetry, wean oxygen as tolerated, ordered incentive spirometry and educated patient on how to use it and its importance. - Walk test: Will be performed as patient improves - continue to monitor #JL on CKD stage III (nephropathy) Creatinine 2.3 (baseline unknown) Renally dose meds and avoid nephrotoxic drugs. Consider nephrology consult if creatinine worsens. FE urea 10.5 suggestive of prerenal etiology #History of CAD status post PCI (2018) #Hypertension - home medications: Coreg 25 mg twice daily, Lasix 20 mg daily, Plavix 75 mg daily, aspirin 81 mg daily - current medications: Aspirin 81 mg daily and Plavix 75 mg daily - SBP goal <160 and DBP goal <90 while inpatient - continue to monitor #Hyperkalemiaresolved #Hypernatremiaresolved Potassium 4.5, sodium 143 Continue to monitor with BMP as needed #Tobacco dependence #Tobacco/Smoking cessation counseling - Counseled patient about the importance of smoking cessation and the possible sequelae as a result of continued tobacco consumption. The patient expresses understanding. -Time: +15 mins #Advanced care planning -Disease education conducted, care plan discussed, diagnoses discussed, prognosis discussed, and patient acknowledges understanding with care plan -Time: +30 min Disposition Plan: Continue medical management Total Time Spent with Patient (Minutes): 45 minutes History Interval history: No acute events overnight. Hospitalist Physical - Constitutional Vitals: Temp Pulse Resp BP Pulse Ox 98.8 F 74 16 146/84 95 08/24/21 03:50 08/24/21 03:50 08/24/21 03:50 08/24/21 03:50 08/24/21 03:50 General appearance: Present: no acute distress, well-nourished - EENT Eyes: Present: PERRL, EOM intact ENT: hearing intact, clear oral mucosa, dentition normal - Neck Neck: Present: supple, normal ROM - Respiratory Respiratory effort: normal Respiratory: bilateral: CTA - Cardiovascular Rhythm: regular Heart Sounds: Present: S1 & S2 - Extremities Extremities: no ischemia, pulses intact, pulses symmetrical, No edema, normal temperature, normal color, Full ROM Peripheral Pulses: within normal limits - Abdominal General gastrointestinal: soft, non-tender, non-distended, normal bowel sounds - Integumentary Integumentary: Present: clear, warm, dry - Psychiatric Psychiatric: appropriate mood/affect, intact judgment & insight, memory intact, cooperative - Neurologic Neurologic: CNII-XII intact, moves all extremities - Allied Health Allied health notes reviewed: nursing HEART Score - HEART Score Age: 45-65 Risk factors: > 3 risk factors or hx of atherosclerotic disease Troponin: Troponin T 0.087 ng/mL (0.00-0.029) H D 08/22/21 20:25 Troponin: 1-3x normal limit - Critical Actions Critical Actions: 4-6 pts:12-16.6% risk of adverse cardiac event. Should be admitted Results - Labs CBC & Chem 7: 08/24/21 04:36 08/24/21 04:36 Labs: Laboratory Last Values WBC 7.9 K/mm3 (4.5-11.0) 08/24/21 04:36 RBC 4.70 M/mm3 (3.65-5.03) 08/24/21 04:36 Hgb 13.8 gm/dl (11.8-15.2) 08/24/21 04:36 Hct 42.9 % (35.5-45.6) 08/24/21 04:36 MCV 91 fl (84-94) 08/24/21 04:36 MCH 29 pg (28-32) 08/24/21 04:36 MCHC 32 % (32-34) 08/24/21 04:36 RDW 13.6 % (13.2-15.2) 08/24/21 04:36 Plt Count 101 K/mm3 (140-440) L 08/24/21 04:36 Lymph % (Auto) 10.1 % (13.4-35.0) L 08/23/21 04:14 Heard % (Auto) 6.0 % (0.0-7.3) 08/23/21 04:14 Eos % (Auto) 0.0 % (0.0-4.3) 08/23/21 04:14 Baso % (Auto) 0.3 % (0.0-1.8) 08/23/21 04:14 Lymph # (Auto) 0.9 K/mm3 (1.2-5.4) L 08/23/21 04:14 Heard # (Auto) 0.5 K/mm3 (0.0-0.8) 08/23/21 04:14 Eos # (Auto) 0.0 K/mm3 (0.0-0.4) 08/23/21 04:14 Baso # (Auto) 0.0 K/mm3 (0.0-0.1) 08/23/21 04:14 Add Manual Diff Complete 08/22/21 10:30 Total Counted 100 08/22/21 10:30 Seg Neutrophils % 83.6 % (40.0-70.0) H 08/23/21 04:14 Seg Neuts % (Manual) 46.0 % (40.0-70.0) 08/22/21 10:30 Band Neutrophils % 2.0 % 08/22/21 10:30 Lymphocytes % (Manual) 34.0 % (13.4-35.0) 08/22/21 10:30 Reactive Lymphs % (Man) 0 % 08/22/21 10:30 Monocytes % (Manual) 8.0 % (0.0-7.3) H 08/22/21 10:30 Eosinophils % (Manual) 9.0 % (0.0-4.3) H 08/22/21 10:30 Basophils % (Manual) 0 % (0.0-1.8) 08/22/21 10:30 Metamyelocytes % 0 % 08/22/21 10:30 Myelocytes % 1.0 % 08/22/21 10:30 Promyelocytes % 0 % 08/22/21 10:30 Blast Cells % 0 % 08/22/21 10:30 Nucleated RBC % Not Reportable 08/22/21 10:30 Seg Neutrophils # 7.2 K/mm3 (1.8-7.7) 08/23/21 04:14 Seg Neutrophils # Man 4.3 K/mm3 (1.8-7.7) 08/22/21 10:30 Band Neutrophils # 0.2 K/mm3 08/22/21 10:30 Lymphocytes # (Manual) 3.2 K/mm3 (1.2-5.4) 08/22/21 10:30 Abs React Lymphs (Man) 0.0 K/mm3 08/22/21 10:30 Monocytes # (Manual) 0.7 K/mm3 (0.0-0.8) 08/22/21 10:30 Eosinophils # (Manual) 0.8 K/mm3 (0.0-0.4) H 08/22/21 10:30 Basophils # (Manual) 0.0 K/mm3 (0.0-0.1) 08/22/21 10:30 Metamyelocytes # 0.0 K/mm3 08/22/21 10:30 Myelocytes # 0.1 K/mm3 08/22/21 10:30 Promyelocytes # 0.0 K/mm3 08/22/21 10:30 Blast Cells # 0.0 K/mm3 08/22/21 10:30 WBC Morphology Not Reportable 08/22/21 10:30 Hypersegmented Neuts Not Reportable 08/22/21 10:30 Hyposegmented Neuts Not Reportable 08/22/21 10:30 Hypogranular Neuts Not Reportable 08/22/21 10:30 Smudge Cells Not Reportable 08/22/21 10:30 Toxic Granulation Not Reportable 08/22/21 10:30 Toxic Vacuolation Not Reportable 08/22/21 10:30 Dohle Bodies Not Reportable 08/22/21 10:30 Pelger-Huet Anomaly Not Reportable 08/22/21 10:30 Hansel Rods Not Reportable 08/22/21 10:30 Platelet Estimate Consistent w auto 08/22/21 10:30 Clumped Platelets Not Reportable 08/22/21 10:30 Plt Clumps, EDTA Not Reportable 08/22/21 10:30 Large Platelets Not Reportable 08/22/21 10:30 Giant Platelets Not Reportable 08/22/21 10:30 Platelet Satelliting Not Reportable 08/22/21 10:30 Plt Morphology Comment Not Reportable 08/22/21 10:30 RBC Morphology Not Reportable 08/22/21 10:30 Dimorphic RBCs Not Reportable 08/22/21 10:30 Polychromasia Not Reportable 08/22/21 10:30 Hypochromasia Not Reportable 08/22/21 10:30 Poikilocytosis Not Reportable 08/22/21 10:30 Anisocytosis Not Reportable 08/22/21 10:30 Microcytosis Not Reportable 08/22/21 10:30 Macrocytosis Not Reportable 08/22/21 10:30 Spherocytes Not Reportable 08/22/21 10:30 Pappenheimer Bodies Not Reportable 08/22/21 10:30 Sickle Cells Not Reportable 08/22/21 10:30 Target Cells Not Reportable 08/22/21 10:30 Tear Drop Cells Not Reportable 08/22/21 10:30 Ovalocytes Not Reportable 08/22/21 10:30 Helmet Cells Not Reportable 08/22/21 10:30 Otoole-Fleischmanns Bodies Not Reportable 08/22/21 10:30 [place] Rings Not Reportable 08/22/21 10:30 Noemi Cells Not Reportable 08/22/21 10:30 Bite Cells Not Reportable 08/22/21 10:30 Crenated Cell Not Reportable 08/22/21 10:30 Elliptocytes Not Reportable 08/22/21 10:30 Acanthocytes (Spur) Not Reportable 08/22/21 10:30 Rouleaux Not Reportable 08/22/21 10:30 Hemoglobin C Crystals Not Reportable 08/22/21 10:30 Schistocytes Not Reportable 08/22/21 10:30 Malaria parasites Not Reportable 08/22/21 10:30 Severo Bodies Not Reportable 08/22/21 10:30 Hem Pathologist Commnt No 08/22/21 10:30 PT 14.7 Sec. (12.2-14.9) 08/22/21 10:30 INR 1.03 (0.87-1.13) 08/22/21 10:30 APTT 36.5 Sec. (24.2-36.6) 08/22/21 10:30 ABG pH 7.329 pH Units (7.350-7.450) L 08/23/21 04:15 ABG pCO2 40.0 mm Hg 08/23/21 04:15 ABG pO2 144.3 mm Hg (80.0-90.0) H 08/23/21 04:15 ABG HCO3 20.5 mmol/L (20.0-26.0) 08/23/21 04:15 ABG O2 Saturation 98.7 % (95.0-99.0) 08/23/21 04:15 ABG O2 Content 21.2 (0.0-44) 08/23/21 04:15 ABG Base Excess -5.0 mmol/L (-2.0-3.0) L 08/23/21 04:15 ABG Hemoglobin 15.5 gm/dl (14.0-18.0) 08/23/21 04:15 ABG Carboxyhemoglobin 1.1 % (0.0-5.0) 08/23/21 04:15 ABG Methemoglobin 0.9 % (0.0-1.5) 08/23/21 04:15 Oxyhemoglobin 96.7 % (95.0-99.0) 08/23/21 04:15 FiO2 60 % 08/23/21 04:15 Sodium 143 mmol/L (137-145) 08/24/21 04:36 Potassium 4.5 mmol/L (3.6-5.0) 08/24/21 04:36 Chloride 105.1 mmol/L (98-107) 08/24/21 04:36 Carbon Dioxide 27 mmol/L (22-30) 08/24/21 04:36 Anion Gap 15 mmol/L 08/24/21 04:36 BUN 38 mg/dL (9-20) H 08/24/21 04:36 Creatinine 2.3 mg/dL (0.8-1.3) H 08/24/21 04:36 Estimated GFR 35 ml/min 08/24/21 04:36 BUN/Creatinine Ratio 17 % 08/24/21 04:36 Glucose 117 mg/dL (75-100) H 08/24/21 04:36 POC Glucose 109 mg/dL (70-105) H 08/23/21 11:06 Calcium 9.2 mg/dL (8.4-10.2) 08/24/21 04:36 Phosphorus 1.90 mg/dL (2.5-4.5) L 08/24/21 04:36 Magnesium 2.20 mg/dL (1.7-2.3) 08/24/21 04:36 Total Bilirubin 0.80 mg/dL (0.1-1.2) 08/24/21 04:36 AST 33 units/L (5-40) 08/24/21 04:36 ALT 34 units/L (7-56) 08/24/21 04:36 Alkaline Phosphatase 66 units/L (35-129) 08/24/21 04:36 Troponin T 0.087 ng/mL (0.00-0.029) H D 08/22/21 20:25 NT-Pro-B Natriuret Pep 2518 pg/mL (0-900) H 08/22/21 10:30 Total Protein 6.5 g/dL (6.3-8.2) 08/24/21 04:36 Albumin 3.6 g/dL (3.9-5) L 08/24/21 04:36 Albumin/Globulin Ratio 1.2 % 08/24/21 04:36 Triglycerides 1052 mg/dL (2-149) H 08/22/21 13:04 Cholesterol 259 mg/dL (50-199) H 08/22/21 13:04 LDL Cholesterol Direct 158 mg/dL (50-130) H 08/22/21 13:04 HDL Cholesterol 52 mg/dL (40-59) 08/22/21 13:04 Cholesterol/HDL Ratio 4.98 % 08/22/21 13:04 Amylase 168 units/L (27-131) H 08/22/21 20:25 Lipase 23 units/L (13-60) 08/22/21 20:25 Urine Creatinine 236.9 mg/dL (0.1-20.0) H 08/23/21 09:03 Urine Sodium 17 mmol/L 08/23/21 09:03 Urine Urea Nitrogen 276 08/23/21 09:03 Urine Opiates Screen Negative 08/22/21 Unknown Urine Methadone Screen Negative 08/22/21 Unknown Ur Barbiturates Screen Negative 08/22/21 Unknown Ur Phencyclidine Scrn Negative 08/22/21 Unknown Ur Amphetamines Screen Negative 08/22/21 Unknown U Benzodiazepines Scrn Negative 08/22/21 Unknown Urine Cocaine Screen Negative 08/22/21 Unknown U Marijuana (THC) Screen Positive 08/22/21 Unknown Drugs of Abuse Note Disclamer 08/22/21 Unknown Microbiology: Microbiology 08/22/21 17:12 Tracheal Aspirate Sputum Culture - Preliminary [place]/IV: Voiding Method Condom Catheter Active Medications - Current Medications Current Medications: Generic Name Dose Route Start Last Admin Trade Name Freq PRN Reason Stop Dose Admin Acetaminophen 650 mg 08/22/21 12:54 Acetaminophen 650 Mg Rect Supp [place] Q4H PRN Pain MILD(1-3)/Fever >100.5/COOK Aspirin 81 mg 08/22/21 16:00 08/23/21 10:36 Aspirin 81 Mg Tab Chew PO 81 mg QDAY KAYLYNN Administration Clopidogrel Bisulfate 75 mg 08/22/21 16:00 08/23/21 10:36 Clopidogrel 75 Mg Tab PO 75 mg QDAY KAYLYNN Administration Famotidine 10 mg 08/23/21 22:00 08/23/21 22:27 Famotidine 10 Mg Tab PO 10 mg BID KAYLYNN Administration Fenofibrate 48 mg 08/23/21 10:00 08/23/21 10:36 Fenofibrate 48 Mg Tab PO 48 mg DAILY KAYLYNN Administration Heparin Sodium (Porcine) 5,000 unit 08/24/21 10:00 Heparin 5,000 Unit/1 Ml Vial SUB-Q Q12HR KAYLYNN Hydrophilic Ointment 1 applic 08/22/21 11:29 Lip Therapy Vaseline TP Q2HR PRN Dry Lips Metoclopramide HCl 10 mg 08/22/21 12:54 Metoclopramide 10 Mg/2 Ml Inj IV Q6H PRN Nausea And Vomiting Multi-Ingred Cream/Lotion/Oil/Oint 1 applic 08/22/21 11:29 Mineral Oil/Petrolatum, White Ophth Oint 3.5 Gm OU Q4HR PRN Dry Eye(s) Ondansetron HCl 4 mg 08/22/21 12:54 08/23/21 05:11 Ondansetron 4 Mg/2 Ml Inj IV 4 mg Q3H PRN Administration Nausea And Vomiting Senna/Docusate Sodium 1 tab 08/23/21 22:00 08/23/21 22:27 Sennosides/Docusate Sodium 8.6/50 Mg Tab PO 1 tab QHS KAYLYNN Administration Sodium Chloride 10 ml 08/22/21 22:00 08/23/21 22:28 Sodium Chloride 0.9% 10 Ml Flush Syringe IV 10 ml BID KAYLYNN Administration Sodium Chloride 10 ml 08/22/21 12:54 Sodium Chloride 0.9% 10 Ml Flush Syringe IV PRN PRN LINE FLUSH Nutrition/Malnutrition Assess - Dietary Evaluation Nutrition/Malnutrition Findings: Nutrition Notes Start: 08/22/21 15:04 Freq: Status: Active Protocol: Document 08/22/21 15:05 OWEN (Rec: 08/22/21 15:44 OWEN [id number]) Nutrition Notes Need for Assessment generated from: MD Order Initial or Follow up Assessment Current Diagnosis Coronary Artery Disease, Hypertension,Respiratory Failure Other Pertinent Diagnosis Pulmonary Edema, CHF, DC s/p PCI w/Stent, AMS. Current Diet N/A. Labs/Tests 08/22: CO2 16, Crea 1.7, Glu 255, Mg 2.4. Pertinent Medications 08/22: Propofol @ 24.494 ml/hr (647 Kcal), others nutritionally unremarkable. Height 6 ft Weight 81.647 kg [place] Body Weight (kg) 80.90 BMI 24.4 Weight change and time frame None reported at admission. Weight Status Appropriate Subjective/Other Information RD consult to evaluate nutritional intake. There is no diet order on chart. No evaluation is possible at the time. Will assess at F/U. Pt is on mechanical ventilation. I will prescribe TF to be ordered whenever pertinent. Percent of energy/protein needs met: N/A. Prescribed TF-Vital AF 1.2 Rohan @ 50 ml/hr would provide for energy/protein needs (1,450 Kcal/91 g) during LOS. Including Propofol; pt will be provided with 105% Kcal; 92% AA. Burn Absent Trauma Absent GI Symptoms None Skin Integrity/Comment No data Current % PO Other Minimum of two criteria No #1 Nutrition Diagnosis Inadequate oral intake Etiology Pt on Mechanical Ventilation. As Evidenced by Signs and Symptoms Currently on NPO. Is patient on ventilator? Yes Is Patient Ambulatory and/or Out of Bed No REE-([facility]-confined to bed) 1989.332 Calculation Used for Recommendations Bong Irving Additional Notes Protein: 1.2-2 g/Kg ABW; 98- 164 g/day. Fluids: 1 ml/Kcal, or as per MD. Nutrition Intervention Nutrition Support: When pertinent, start TF-Vital AF 1.2 Rohan @ 50 ml/hr. Flush: 170 ml water Q 4 hr, or as per MD. Kcal 1,450 Protein (gm) 91 Carbohydrates (gm) 134 Fat (gm) 65 Fluid (mL) 980 Fiber (gm) 6 % RDI: 73% Kcal; 92% AA. Goal #1 Provide at least 75% of energy /protein needs through Enteral Feeding during LOS. Goal #2 Maintain body weight within +/ -3% of admission body weight during LOS. Follow-Up By: 08/24/21 Additional Comments When pertinent, startmonitoring TF tolerance and BM.
[2021-08-24] MEDS: FENOFIBRATE 48 MG TAB PO SCH (09:54)
[2021-08-24] MEDS: CLOPIDOGREL 75 MG TAB PO SCH (09:54)
[2021-08-24] MEDS: HEPARIN 5,000 UNIT/1 ML VIAL SUB-Q SCH ×2 (09:54→21:56)
[2021-08-24] MEDS: FAMOTIDINE 10 MG TAB PO SCH ×2 (09:54→21:58)
[2021-08-24] MEDS: ASPIRIN 81 MG TAB CHEW PO SCH (09:55)
--- NOTE | 2021-08-24 12:01 | Progress Note ---
Assessment and Plan 61 y/o male with CHF, admitted with hypertensive Emergency and CHF exacerbation resulting in Pulmonary edema causing acute respiratory failure. 08/24/21: Stable pulm status. Will sign off. Call if questions. 1. Patient awake and alert, on minimal vent settings. Will extubate 2. Worsening renal function, could be secondary to over diuresis, hold on lasix but hold on giving fluids as well 3. Bipap PRN 4. BP control 5. Once extubated and monitored, can likely be transferred to [facility] 31 minutes. Subjective Date of service: 08/24/21 Principal diagnosis: Pulmonary edema Interval history: Weaned to room air. Stable Objective Vital Signs - 12hr 08/24/21 08/24/21 08/24/21 03:50 08:20 10:00 Temperature 98.8 F 99.1 F Pulse Rate 74 79 69 Respiratory 16 18 Rate Blood Pressure 146/84 157/96 O2 Sat by Pulse 95 98 Oximetry 08/24/21 10:42 Temperature Pulse Rate Respiratory Rate Blood Pressure O2 Sat by Pulse 98 Oximetry Constitutional: no acute distress, alert Eyes: non-icteric ENT: other (orally intubated, not on sedation) Neck: supple Effort: normal Ascultation: Bilateral: clear Percussion: Bilateral: not dull Cardiovascular: regular rate and rhythm Gastrointestinal: normoactive bowel sounds, soft, non-tender Extremities: no cyanosis, no edema, pulses normal Neurologic: normal mental status, non-focal exam Psychiatric: mood appropriate, affect normal CBC and BMP: 08/24/21 04:36 08/24/21 04:36 ABG, PT/INR, D-dimer: ABG ABG pH 7.329 pH Units (7.350-7.450) L 08/23/21 04:15 ABG pCO2 40.0 mm Hg 08/23/21 04:15 ABG pO2 144.3 mm Hg (80.0-90.0) H 08/23/21 04:15 ABG O2 Saturation 98.7 % (95.0-99.0) 08/23/21 04:15 PT/INR, D-dimer PT 14.7 Sec. (12.2-14.9) 08/22/21 10:30 INR 1.03 (0.87-1.13) 08/22/21 10:30 Abnormal lab findings: Abnormal Labs 08/22/21 08/22/21 08/22/21 10:30 10:30 12:05 RBC 5.54 H Hgb 16.4 H Hct 52.3 H MCV 95 H MCHC 31 L Plt Count Lymph % (Auto) Lymph # (Auto) Seg Neutrophils % Monocytes % (Manual) 8.0 H Eosinophils % (Manual) 9.0 H Eosinophils # (Manual) 0.8 H ABG pH 7.011 L* ABG pO2 93.2 H ABG O2 Saturation 93.0 L ABG Base Excess -12.3 L Oxyhemoglobin 91.2 L Sodium Potassium Carbon Dioxide 16 L BUN Creatinine 1.7 H Glucose 255 H POC Glucose Phosphorus Magnesium 2.40 H Total Bilirubin AST 81 H ALT 64 H Troponin T NT-Pro-B Natriuret Pep 2518 H Albumin Triglycerides Cholesterol LDL Cholesterol Direct Amylase Urine Creatinine 08/22/21 08/22/21 08/22/21 13:04 16:21 20:25 RBC Hgb Hct MCV MCHC Plt Count Lymph % (Auto) Lymph # (Auto) Seg Neutrophils % Monocytes % (Manual) Eosinophils % (Manual) Eosinophils # (Manual) ABG pH 7.254 L ABG pO2 259.9 H ABG O2 Saturation 99.4 H ABG Base Excess -6.7 L Oxyhemoglobin Sodium Potassium Carbon Dioxide BUN Creatinine Glucose POC Glucose Phosphorus Magnesium Total Bilirubin AST ALT Troponin T 0.055 H D 0.087 H D NT-Pro-B Natriuret Pep Albumin Triglycerides 1052 H Cholesterol 259 H LDL Cholesterol Direct 158 H Amylase 168 H Urine Creatinine 08/23/21 08/23/21 08/23/21 04:14 04:14 04:15 RBC 5.21 H Hgb 15.6 H Hct 47.6 H MCV MCHC Plt Count 111 L Lymph % (Auto) 10.1 L Lymph # (Auto) 0.9 L Seg Neutrophils % 83.6 H Monocytes % (Manual) Eosinophils % (Manual) Eosinophils # (Manual) ABG pH 7.329 L ABG pO2 144.3 H ABG O2 Saturation ABG Base Excess -5.0 L Oxyhemoglobin Sodium 146 H Potassium 5.1 H D Carbon Dioxide BUN 32 H Creatinine 3.0 H D Glucose POC Glucose Phosphorus Magnesium Total Bilirubin 1.30 H AST 43 H ALT Troponin T NT-Pro-B Natriuret Pep Albumin 3.8 L Triglycerides Cholesterol LDL Cholesterol Direct Amylase Urine Creatinine 08/23/21 08/23/21 08/24/21 09:03 11:06 04:36 RBC Hgb Hct MCV MCHC Plt Count 101 L Lymph % (Auto) Lymph # (Auto) Seg Neutrophils % Monocytes % (Manual) Eosinophils % (Manual) Eosinophils # (Manual) ABG pH ABG pO2 ABG O2 Saturation ABG Base Excess Oxyhemoglobin Sodium Potassium Carbon Dioxide BUN Creatinine Glucose POC Glucose 109 H Phosphorus Magnesium Total Bilirubin AST ALT Troponin T NT-Pro-B Natriuret Pep Albumin Triglycerides Cholesterol LDL Cholesterol Direct Amylase Urine Creatinine 236.9 H 08/24/21 04:36 RBC Hgb Hct MCV MCHC Plt Count Lymph % (Auto) Lymph # (Auto) Seg Neutrophils % Monocytes % (Manual) Eosinophils % (Manual) Eosinophils # (Manual) ABG pH ABG pO2 ABG O2 Saturation ABG Base Excess Oxyhemoglobin Sodium Potassium Carbon Dioxide BUN 38 H Creatinine 2.3 H Glucose 117 H POC Glucose Phosphorus 1.90 L Magnesium Total Bilirubin AST ALT Troponin T NT-Pro-B Natriuret Pep Albumin 3.6 L Triglycerides Cholesterol LDL Cholesterol Direct Amylase Urine Creatinine
[2021-08-24] MEDS ORDERED: HYDROcodone/ACETAMINOPHEN 5-325 MG TAB PO PRN (17:25)
[2021-08-24] MEDS ORDERED: hydrALAZINE 20 MG/1 ML INJ IV ONE (17:30)
[2021-08-24] MEDS ORDERED: NIFEdipine XL 30 MG TAB PO SCH (18:00)
--- NOTE | 2021-08-24 18:34 | Progress Note ---
<HOWARDOCTAVIANO - Last Filed: 08/24/21 18:48> Assessment and Plan Acute Respiratory Failure (resolved) -On room air Acute on Chronic HFrEF // ICMP (EF 35-40%, no device) -Diuretics remain on hold due to renal function -Pt appears to be euvolemic upon assessment today -Repeat BMP in AM -Strict I/Os -Continue BB -Entresto held due to renal fxn JL -Closely monitor renal indices off diuretics Hypertensive Emergency (resolved) -BP trending back up -Resume Coreg 25mg BID -No ACEI/ARB/ARNI due to JL -May also add PO Hydralazine if needed CAD s/p [place], s/p PCI (2017) -On DAPT as per Primary Grain Sacker (bASA/Plavix) -Statin held in the setting of elevated LFTs Elevated Tn -In the setting of hypoxia -Pt denies chest pain -Lexiscan stress MPI 05/2021 revealed a large apical infarct and moderate anterior and inferior infarct, no significant ischemia noted Medical Non-Compliance -Pt counseled regarding the importance of adherence to medications/refills Patient seen in conjunction with Dr. Luna, who agrees with the assessment and plan of care. - Patient Problems (1) Acute on chronic HFrEF (heart failure with reduced ejection fraction) Current Visit: Yes Status: Acute (2) JL (acute kidney injury) Current Visit: Yes Status: Acute Subjective Date of service: 08/24/21 Principal diagnosis: HFrEF Interval history: Resting comfortably on room air. Has some pain in his throat status post extubation. Otherwise doing well. Family at bedside. Tele reviewed - SR 80s, no events. Objective Vital Signs Temp Pulse Pulse Resp BP Pulse Ox 08/24/21 16:08 99.6 F 84 18 206/125 99 08/24/21 12:10 97.7 F 62 18 164/87 97 08/24/21 10:42 98 08/24/21 10:00 69 69 18 97 08/24/21 08:20 99.1 F 79 18 157/96 98 08/24/21 03:50 98.8 F 74 16 146/84 95 08/24/21 00:00 72 15 96 08/23/21 22:53 98.6 F 63 18 136/75 93 08/23/21 22:00 75 08/23/21 20:30 135/85 98 04/22/22 20:28 98 08/23/21 20:21 62 14 106/53 97 08/23/21 20:11 77 18 106/53 98 08/23/21 20:01 74 15 106/53 99 08/23/21 20:00 72 15 96 08/23/21 19:51 63 17 128/80 100 08/23/21 19:41 69 17 128/80 100 08/23/21 19:30 65 17 128/80 99 08/23/21 19:20 71 19 129/79 99 08/23/21 19:10 69 19 129/79 99 08/23/21 19:00 68 17 129/79 100 08/23/21 18:50 66 16 130/71 98 08/23/21 18:40 78 12 130/71 98 08/23/21 18:38 98.1 F 08/23/21 18:30 72 10 L 130/71 99 - Physical Examination General: No Apparent Distress HEENT: Positive: EOMI, Normocephaly Neck: Positive: neck supple, trachea midline Cardiac: Positive: Reg Rate and Rhythm, S1/S2 Lungs: Positive: clear to auscultation Neuro: Positive: Grossly Intact Abdomen: Positive: Soft. Negative: Tender Skin: Negative: Rash Extremities: Present: lower extr. pulses, warm. Absent: edema - Labs and Meds Cardiac Enzymes 08/24/21 Range/Units 04:36 AST 33 (5-40) units/L CBC 08/24/21 Range/Units 04:36 WBC 7.9 (4.5-11.0) K/mm3 RBC 4.70 (3.65-5.03) M/mm3 Hgb 13.8 (11.8-15.2) gm/dl Hct 42.9 (35.5-45.6) % Plt Count 101 L (140-440) K/mm3 Comprehensive Metabolic Panel 08/24/21 Range/Units 04:36 Sodium 143 (137-145) mmol/L Potassium 4.5 (3.6-5.0) mmol/L Chloride 105.1 (98-107) mmol/L Carbon Dioxide 27 (22-30) mmol/L BUN 38 H (9-20) mg/dL Creatinine 2.3 H (0.8-1.3) mg/dL Glucose 117 H (75-100) mg/dL Calcium 9.2 (8.4-10.2) mg/dL AST 33 (5-40) units/L ALT 34 (7-56) units/L Alkaline Phosphatase 66 (35-129) units/L Total Protein 6.5 (6.3-8.2) g/dL Albumin 3.6 L (3.9-5) g/dL - Imaging and Cardiology EKG: report reviewed, image reviewed Pharmacologic stress test: report reviewed Echo: report reviewed - Telemetry EKG Rhythm: Sinus Rhythm - EKG Sinus rhythms and dysrhythmias: sinus rhythm Ventricular dysrhythmias: ventricular premature com Myocardial infarction: anterior [place] (old age or i, lateral [place] (old age or in <MACARENA LUNA M - Last Filed: 08/25/21 13:05> Assessment and Plan Patient seen and examined with the nurse practitioner. Agree with assessment and plan. Objective Vital Signs Temp Pulse Pulse Resp BP Pulse Ox 08/25/21 10:00 71 18 96 08/25/21 08:45 99.9 F H 65 18 139/90 96 08/25/21 04:00 67 08/25/21 03:26 98.5 F 64 18 145/85 99 08/25/21 00:00 61 08/24/21 23:50 99.6 F 74 16 133/83 99 08/24/21 22:00 71 18 97 08/24/21 20:00 71 08/24/21 19:19 98.8 F 18 203/109 08/24/21 19:18 98.8 F 74 18 204/111 99 08/24/21 18:30 80 210/125 96 08/24/21 16:08 99.6 F 84 18 206/125 99 - Labs and Meds Comprehensive Metabolic Panel 08/25/21 Range/Units 04:40 Sodium 142 (137-145) mmol/L Potassium 3.9 (3.6-5.0) mmol/L Chloride 103.3 (98-107) mmol/L Carbon Dioxide 27 (22-30) mmol/L BUN 23 H (9-20) mg/dL Creatinine 1.4 H (0.8-1.3) mg/dL Glucose 120 H (75-100) mg/dL Calcium 9.1 (8.4-10.2) mg/dL
[2021-08-24] MEDS ORDERED: NIFEdipine XL 30 MG TAB PO ONE (18:35)
[2021-08-24] MEDS: carvediloL 25 MG TAB PO SCH (21:55)
[2021-08-24] MEDS: SENNOSIDES/DOCUSATE SODIUM 8.6/50 MG TAB PO SCH (21:59)
[2021-08-25 05:54] LABS: BUN/Creatinine Ratio 16; Blood Urea Nitrogen 23 mg/dL (9-20); Calcium 9.1 mg/dL (8.4-10.2); Hemolysis Index 5
[2021-08-25] MEDS: ASPIRIN 81 MG TAB CHEW PO SCH (09:46)
[2021-08-25] MEDS: hydrALAZINE 25 MG TAB PO SCH ×2 (09:46→15:08)
[2021-08-25] MEDS: CLOPIDOGREL 75 MG TAB PO SCH (09:46)
[2021-08-25] MEDS: HEPARIN 5,000 UNIT/1 ML VIAL SUB-Q SCH (09:46)
[2021-08-25] MEDS: carvediloL 25 MG TAB PO SCH (09:46)
[2021-08-25] MEDS: FAMOTIDINE 10 MG TAB PO SCH (09:46)
--- NOTE | 2021-08-25 10:46 | Electrocardiograph Report ---
[facility] Test Date: 2021-08-24 Test Time: 18:49:06 Pat Name: KYLE GOMEZ Department: Room: A470 1 Gender: M Psychometrist: NADIYA : 1960 Requested By: ESAU SNIDER Order Number: [id number] Reading MD: Lucie Luna Measurements Intervals Donovan Rate: 69 P: 10 UT: 132 QRS: -51 QRSD: 90 T: 79 QT: 389 QTc: 417 Interpretive Statements Sinus rhythm Left ventricular hypertrophy Inferior infarct, old Anterior infarct, old Compared to ECG 08/23/2021 07:28:45 Left ventricular hypertrophy now present Electronically Signed On 08-25-2021 10:46:48 EDT by Lucie Luna
[2021-08-25] MEDS: FENOFIBRATE 48 MG TAB PO SCH (12:09)
--- NOTE | 2021-08-25 12:46 | Discharge Summary ---
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 Procedures: Mechanical intubation Hospital course: Patient 61-year-old male with past medical history of CAD status postacute NC status post PCI, hypertension, chronic systolic heart failure, and tobacco dependence who presented for shortness of breath and severe hypoxia with oxygen saturation of 60%. The patient was initiated on CPAP and transitioned to BiPAP and eventually intubated in the emergency department for airway protection. Patient was admitted to the ICU for management of acute hypoxic respiratory failure secondary to acute on chronic systolic heart failure. Cardiology was consulted for further management. TTE revealed an EF 35-40%. The exacerbation was likely secondary to medication noncompliance and consuming >2 g sodium daily. Patient was successfully extubated and transferred to the floor. Patient continued medical management for his acute heart failure exacerbation. Patient also developed an JL presumed to be secondary to medications provided. Patient was counseled at length about the importance of medication compliance, following with his providers, salt restriction, and fluid restriction. Patient expresses understanding. Patient is medically clear for discharge. Disposition: 01 HOME / SELF CARE / HOMELESS Final Discharge Diagnosis (Prints w/discharge instructions): Acute on chronic systolic heart failure, hypertensive emergency, acute hypoxic respiratory failure, JL on CKD stage III, history of CAD status post PCI (2017), hypertension, hyperkalemia, hyponatremia, tobacco dependence. Time spent for discharge: 45 min Core Measure Documentation - Palliative Care Palliative Care/ Comfort Measures: Not Applicable - Core Measures Any of the following diagnoses?: heart failure - Heart Failure Discharge Requirements LARRY/ARB for LVSD if EF <40%: Not Applicable Reason for no LARRY/ARB: Renal impairment Beta kamila at discharge: Yes Exam - Constitutional Vitals: Temp Pulse Resp BP Pulse Ox 99.9 F H 71 18 139/90 96 08/25/21 08:45 08/25/21 10:00 08/25/21 10:00 08/25/21 08:45 08/25/21 10:00 General appearance: Present: no acute distress, well-nourished - EENT Eyes: Present: PERRL, EOM intact ENT: hearing intact, clear oral mucosa, dentition normal - Neck Neck: Present: supple, normal ROM - Respiratory Respiratory effort: normal Respiratory: bilateral: CTA - Cardiovascular Rhythm: regular Heart Sounds: Present: S1 & S2 - Extremities Extremities: no ischemia, pulses intact, pulses symmetrical, normal temperature, normal color, Full ROM Extremity abnormal: edema (Trace edema of bilateral lower extremities) Peripheral Pulses: within normal limits - Abdominal General gastrointestinal: Present: soft, non-tender, non-distended, normal bowel sounds Male genitourinary: Present: deferred - Rectal Rectal Exam: deferred - Integumentary Integumentary: Present: clear, warm, dry - Musculoskeletal Musculoskeletal: strength equal bilaterally - Psychiatric Psychiatric: appropriate mood/affect, intact judgment & insight, memory intact, cooperative - Neurologic Neurologic: CNII-XII intact, moves all extremities - Allied Health Allied health notes reviewed: nursing Plan Activity: no restrictions Diet: low salt Additional Instructions: Patient 61-year-old male with past medical history of CAD status postacute NC status post PCI, hypertension, chronic systolic heart failure, and tobacco dependence who presented for shortness of breath and severe hypoxia with oxygen saturation of 60%. The patient was initiated on CPAP and transitioned to BiPAP and eventually intubated in the emergency department for airway protection. Patient was admitted to the ICU for management of acute hypoxic respiratory failure secondary to acute on chronic systolic heart failure. Cardiology was consulted for further management. TTE revealed an EF 35-40%. The exacerbation was likely secondary to medication noncompliance and consuming >2 g sodium daily. Patient was successfully extubated and transferred to the floor. Patient continued medical management for his acute heart failure exacerbation. Patient also developed an JL presumed to be secondary to medications provided. Patient was counseled at length about the importance of medication compliance, following with his providers, salt restriction, and fluid restriction. Patient expresses understanding. Patient is medically clear for discharge. Care Plan Goals: Patient is medically clear for discharge. Assessment: Patient 61-year-old male with past medical history of CAD status postacute NC status post PCI, hypertension, chronic systolic heart failure, and tobacco dependence who presented for shortness of breath and severe hypoxia with oxygen saturation of 60%. The patient was initiated on CPAP and transitioned to BiPAP and eventually intubated in the emergency department for airway protection. Patient was admitted to the ICU for management of acute hypoxic respiratory failure secondary to acute on chronic systolic heart failure. Cardiology was consulted for further management. TTE revealed an EF 35-40%. The exacerbation was likely secondary to medication noncompliance and consuming >2 g sodium daily. Patient was successfully extubated and transferred to the floor. Melissa ent continued medical management for his acute heart failure exacerbation. Patient also developed an JL presumed to be secondary to medications provided. Patient was counseled at length about the importance of medication compliance, following with his providers, salt restriction, and fluid restriction. Patient expresses understanding. Patient is medically clear for discharge. Follow up with: PRIMARY CAREMD [Primary Care Provider] - 3-5 Days RAFIQ ROWLAND MD [Staff Physician] - 14 Days MODESTO ARTHUR MD [Staff Physician] - 7 Days Forms: Work/School Release Form Prescriptions: hydrALAZINE [Apresoline TAB] 25 mg PO Q8HR #90 tablet carvediloL [Coreg] 25 mg PO BID 30 Days #60 tab Furosemide [Lasix TAB] 20 mg PO QDAY 30 Days #30 tablet Clopidogrel [Plavix] 75 mg PO QDAY 30 Days #30 tab
[2021-08-25] MEDS ORDERED: AMOXICILLIN/K CLAV 500/125MG TAB PO SCH (14:00)
[2021-08-25 15:52] VITALS: BP 158/99
[2021-08-25] MEDS ORDERED: ACETAMINOPHEN 325 MG TAB PO PRN (15:53)
== END 2021-08-25 16:49 | disposition home or self-care (01) | DRG 208 ==
LOC: ED 10:07 → CC1 12:54 → 4A 08-23 22:13
PROVIDERS: ADMIT Internal Medicine; ATTEND Student in an Organized Health Care Education/Training Program
PROC: 5A1945Z Respiratory Ventilation, 24-96 Consecutive Hours (ICD-10-PCS; principal; 2021-08-22)
PROC: 0BH17EZ Insertion of Endotracheal Airway into Trachea, Via Natural or Artificial Opening (ICD-10-PCS; 2021-08-22)
PROC: 4A033R1 Measurement of Arterial Saturation, Peripheral, Percutaneous Approach (ICD-10-PCS; 2021-08-22)
PROC: 5A09357 Assistance with Respiratory Ventilation, Less than 24 Consecutive Hours, Continuous Positive Airway Pressure (ICD-10-PCS; 2021-08-22)
PROC: 5A09357 Assistance with Respiratory Ventilation, Less than 24 Consecutive Hours, Continuous Positive Airway Pressure (ICD-10-PCS; 2021-08-24)
DX: J96.01 Acute respiratory failure with hypoxia (principal); I50.23 Acute on chronic systolic (congestive) heart failure; J81.0 Acute pulmonary edema; I16.1 Hypertensive emergency; N17.9 Acute kidney failure, unspecified; E87.0 Hyperosmolality and hypernatremia; I13.0 Hypertensive heart and chronic kidney disease with heart failure and stage 1 through stage 4 chronic kidney disease, or unspecified chronic kidney disease; J96.02 Acute respiratory failure with hypercapnia; F17.200 Nicotine dependence, unspecified, uncomplicated; I25.10 Atherosclerotic heart disease of native coronary artery without angina pectoris; K21.9 Gastro-esophageal reflux disease without esophagitis; E78.5 Hyperlipidemia, unspecified; E87.5 Hyperkalemia; N18.30 Chronic kidney disease, stage 3 unspecified; Z91.14 Patient's other noncompliance with medication regimen; I25.2 Old myocardial infarction; Z95.5 Presence of coronary angioplasty implant and graft
CPT/HCPCS: 36415; 36600; 71045; 74018; 76705; 80048; 80053; 80061; 80307; 82150; 82570; 82803; 82962; 83690; 83735; 83880; 84100; 84300; 84484; 84520; 85007; 85025; 85027; 85610; 85730; 87070; 87205; 93005; 93306; 93970; 94002; 94003; 94660; 94760; G0378; J3490; J7121; C8929; J0330; J0360; J1644; J1650; J1940; J2405; J2704; J3010

== ENCOUNTER 2021-09-02 14:51 | Inpatient (IN) | payer OTHER ==
[2021-09-02 16:29] LABS: Basophils # (Auto) 0.1 K/mm3 (0.0-0.1); Basophils % (Auto) 0.8 % (0.0-1.8); Eosinophils # (Auto) 0.1 K/mm3 (0.0-0.4); Eosinophils % (Auto) 0.8 % (0.0-4.3); Hematocrit 44.2 % (35.5-45.6); Hemoglobin 14.7 gm/dl (11.8-15.2); Lymphocytes # (Auto) 1.6 K/mm3 (1.2-5.4); Lymphocytes % (Auto) 23.5 % (13.4-35.0); Mean Corpuscular HGB Conc 33 % (32-34); Mean Corpuscular Volume 89 fl (84-94); Monocytes # (Auto) 0.5 K/mm3 (0.0-0.8); Monocytes % (Auto) 6.8 % (0.0-7.3); Platelet Count 326 K/mm3 (140-440); Red Blood Count 4.95 M/mm3 (3.65-5.03); Red Cell Distribution Width 13.2 % (13.2-15.2)
--- NOTE | 2021-09-02 16:31 | Emergency Department Report ---
ED Neuro Deficit HPI - General Chief Complaint: Neuro Symptoms/Deficit Stated Complaint: NO FEELING IN RT LEG Time Seen by Provider: 09/02/21 16:09 Source: patient, RN notes reviewed, old records reviewed Mode of arrival: Wheelchair Limitations: Physical Limitation, Other (The patient is a poor historian) - History of Present Illness Initial Comments: The patient is a 61-year-old gentleman. His past medical history includes CAD, s/p acute IN, status post stent, hypertension, chronic systolic heart failure, and tobacco dependence. He presents to the ER today with a complaint of right leg numbness, weakness and some pain. He denies physical pain elsewhere. He also reports possible facial droop and twisting, and right arm clumsiness. He believes his symptoms have started within the past 4 to 5 hours, but he does not recall his exact last kno wn well time he believes that he takes blood thinners, but does not specifically recall what blood thinners he takes -: Gradual, hour(s) Location: right arm Presenting Symptoms: Present: Weak/Paralyzed One Side History of same: No Place: home Quality: weak, numb, tingling, burning Improves With: none Worsens With: none On Anticoagulants: Yes - Related Data Home Medications: Previous Rx's Medication Instructions Recorded Last Taken Type Aspirin [Aspirin BABY CHEW TAB] 81 mg PO QDAY 30 Days #30 tab.chew 05/27/21 Unknown Rx Amoxicillin/K Clav Tab [Augmentin 1 each PO Q12HR #13 tablet 08/25/21 Unknown Rx 500 MG TAB] AtorvaSTATin [Lipitor] 40 mg PO QHS #30 tab 08/25/21 Unknown Rx Clopidogrel [Plavix] 75 mg PO QDAY 30 Days #30 tab 08/25/21 Unknown Rx Furosemide [Lasix TAB] 20 mg PO QDAY 30 Days #30 tablet 08/25/21 Unknown Rx carvediloL [Coreg] 25 mg PO BID 30 Days #60 tab 08/25/21 Unknown Rx hydrALAZINE [Apresoline TAB] 25 mg PO Q8HR #90 tablet 08/25/21 Unknown Rx Allergies/Adverse Reactions: Allergies Allergy/AdvReac Type Severity Reaction Status Date / Time No Known Allergies Allergy Verified 04/12/14 20:08 ED Review of Systems ROS: Stated complaint: NO FEELING IN RT LEG Other details as noted in HPI Constitutional: denies: fever Eyes: denies: eye discharge ENT: denies: epistaxis Respiratory: denies: cough Cardiovascular: denies: chest pain Gastrointestinal: denies: abdominal pain Genitourinary: denies: dysuria Musculoskeletal: myalgia. denies: back pain Neurological: weakness, numbness ED Past Medical Hx - Past Medical History Hx Hypertension: Yes Hx Heart Attack/AMI: Yes (2018) Hx Congestive Heart Failure: Yes Hx Diabetes: No Hx GERD: Yes Hx Sickle Cell Disease: No Hx Kidney Stones: No Hx Asthma: No Hx COPD: No Hx Tuberculosis: No Hx HIV: No - Surgical History Hx Coronary Stent: Yes (2018) Hx Pacemaker: No - Social History Smoking Status: Former Smoker - Medications Home Medications: Home Medications Medication Instructions Recorded Confirmed Last Taken Type Aspirin [Aspirin BABY CHEW TAB] 81 mg PO QDAY 30 Days #30 tab.chew 05/27/21 08/22/21 Unknown Rx Amoxicillin/K Clav Tab [Augmentin 1 each PO Q12HR #13 tablet 08/25/21 Unknown Rx 500 MG TAB] AtorvaSTATin [Lipitor] 40 mg PO QHS #30 tab 08/25/21 Unknown Rx Clopidogrel [Plavix] 75 mg PO QDAY 30 Days #30 tab 08/25/21 Unknown Rx Furosemide [Lasix TAB] 20 mg PO QDAY 30 Days #30 tablet 08/25/21 Unknown Rx carvediloL [Coreg] 25 mg PO BID 30 Days #60 tab 08/25/21 Unknown Rx hydrALAZINE [Apresoline TAB] 25 mg PO Q8HR #90 tablet 08/25/21 Unknown Rx ED Neuro Physical Exam - General Limitations: No Limitations General appearance: alert, in no apparent distress Suspected Stroke: No - Head Head exam: Present: atraumatic, normocephalic - Eye Eye exam: Present: normal appearance, EOMI. Absent: nystagmus - ENT ENT exam: Present: normal exam, normal orophraynx, mucous membranes moist, normal external ear exam - Neck Neck exam: Present: normal inspection, full ROM. Absent: tenderness, meningismus - Respiratory Respiratory exam: Present: normal lung sounds bilaterally. Absent: respiratory distress, wheezes, rales, rhonchi, stridor, decreased breath sounds - Cardiovascular Cardiovascular Exam: Present: regular rate, normal rhythm, normal heart sounds. Absent: bradycardia, tachycardia, irregular rhythm, systolic murmur, diastolic murmur, rubs, gallop - GI/Abdominal GI/Abdominal exam: Present: soft. Absent: distended, tenderness, guarding, rebound, rigid, pulsatile mass - Rectal Rectal exam: Present: deferred - Extremities Exam Extremities exam: Present: normal inspection, full ROM, other (2+ pulses noted in the bilateral upper and lower extremities. There is no palpable cord. negative Homans sign. Muscular compartments are soft. The pelvis is stable.). Absent: pedal edema, calf tenderness - Back Exam Back exam: Present: normal inspection. Absent: tenderness, CVA tenderness (R), CVA tenderness (L), paraspinal tenderness, vertebral tenderness - Neurological Exam Neurological exam: Present: alert (The tongue is midline. EOMI appear), motor sensory deficit (There is 4 out of 5 strength right lower extremity. There is 4.5 strength out of 5 strength in the right upper extremity. Sensation is intact to light touch in 4 extremities), other (There is left-sided facial asymmetry.) - NIHSS Assessment Interval: Baseline 1a. Level of Consciousness: alert/keenly responsive 1b. LOC Questions: answers both correctly 1c. LOC Commands: performs tasks correctly 2. Best Gaze: normal 3. Visual: no visual loss 4. Facial Palsy: minor paralysis 5b. Motor Arm Right: drift 5a. Motor Arm Left: no drift 6a. Motor Leg Left: no drift 6b. Motor Leg Right: drift 7. Limb Ataxia: absent 8. Sensory: normal 9. Best Language: no aphasia 10. Dysarthria: normal 11. Extinction/Inattention: no abnormality Total Score: 3 Stroke Severity: Minor Stroke - Psychiatric Psychiatric exam: Present: normal affect, normal mood - Skin Skin exam: Present: warm, dry, intact, normal color. Absent: rash ED Course Vital Signs 09/02/21 09/02/21 09/02/21 16:09 17:48 17:53 Temperature 97.8 F Pulse Rate 78 125 H Respiratory 18 18 Rate Blood Pressure Blood Pressure 169/91 [Right] O2 Sat by Pulse 97 98 Oximetry 09/02/21 18:00 Temperature Pulse Rate 77 Respiratory 17 Rate Blood Pressure 121/73 Blood Pressure [Right] O2 Sat by Pulse 100 Oximetry - Reevaluation(s) Reevaluation #1: 09/02/21 16:30 Differential diagnosis, include but not limited to: Stroke, subacute stroke, electrolyte derangement, thyroid derangement, conversion disorder, neuropathy Assessment and plan: 61-year-old gentleman presenting with nonspecific neurologic symptoms, not exactly sure if his last known well time, sometime between 4 and 5 hours prior to ER presentation, therefore, not a tPA candidate. Code stroke is called overhead. Accu-Chek [address] scan of the brain, CT angiogram head and neck will be obtained. Neurology consultation is pending. Reassess. Obtain appropriate laboratory studies, chest x-ray, and EKG 09/02/21 16:52 Patient feels improved. Laboratory studies reviewed and appreciated. I do not appreciate a bleed on CT scan of the brain. Patient deemed not to be a tPA candidate by myself and consulting stroke neurology. Recommendations are reviewed and appreciated. Discussed this with the patient and family member with patient's permission. They are agreeable to the plan of care. Awaiting formal interpretation of CT scans and remainder of laboratory results Reevaluation #2: 09/02/21 17:42 CT angiogram head and neck negative for acute findings. Aspirin and Plavix ordered. Hospital physician, Dr. Adria Painter to admit to [facility] [place] - Lab Data Result diagrams: 09/02/21 16:15 09/02/21 16:17 Lab Results 09/02/21 09/02/21 09/02/21 Range/Units 16:07 16:15 16:15 WBC 6.7 (4.5-11.0) K/mm3 RBC 4.95 (3.65-5.03) M/mm3 Hgb 14.7 (11.8-15.2) gm/dl Hct 44.2 (35.5-45.6) % MCV 89 (84-94) fl MCH 30 (28-32) pg MCHC 33 (32-34) % RDW 13.2 (13.2-15.2) % Plt Count 326 (140-440) K/mm3 Lymph % (Auto) 23.5 (13.4-35.0) % Hutchinson % (Auto) 6.8 (0.0-7.3) % Eos % (Auto) 0.8 (0.0-4.3) % Baso % (Auto) 0.8 (0.0-1.8) % Lymph # (Auto) 1.6 (1.2-5.4) K/mm3 Hutchinson # (Auto) 0.5 (0.0-0.8) K/mm3 Eos # (Auto) 0.1 (0.0-0.4) K/mm3 Baso # (Auto) 0.1 (0.0-0.1) K/mm3 Seg Neutrophils % 68.1 (40.0-70.0) % Seg Neutrophils # 4.5 (1.8-7.7) K/mm3 PT 13.6 (12.2-14.9) Sec. INR 0.94 (0.87-1.13) APTT 36.0 (24.2-36.6) Sec. Thrombin Time 17.0 (15.1-19.6) Sec. Sodium (137-145) mmol/L Potassium (3.6-5.0) mmol/L Chloride (98-107) mmol/L Carbon Dioxide (22-30) mmol/L Anion Gap mmol/L BUN (9-20) mg/dL Creatinine (0.8-1.3) mg/dL Estimated GFR ml/min BUN/Creatinine Ratio % Glucose (75-100) mg/dL POC Glucose 100 (70-105) mg/dL Calcium (8.4-10.2) mg/dL Total Bilirubin (0.1-1.2) mg/dL AST (5-40) units/L ALT (7-56) units/L Alkaline Phosphatase (35-129) units/L Total Creatine Kinase (55-170) units/L CK-MB (CK-2) (0.0-4.0) ng/mL CK-MB (CK-2) Rel Index (0-4) Troponin T (0.00-0.029) ng/mL Total Protein (6.3-8.2) g/dL Albumin (3.9-5) g/dL Albumin/Globulin Ratio % 09/02/21 Range/Units 16:17 WBC (4.5-11.0) K/mm3 RBC (3.65-5.03) M/mm3 Hgb (11.8-15.2) gm/dl Hct (35.5-45.6) % MCV (84-94) fl MCH (28-32) pg MCHC (32-34) % RDW (13.2-15.2) % Plt Count (140-440) K/mm3 Lymph % (Auto) (13.4-35.0) % Hutchinson % (Auto) (0.0-7.3) % Eos % (Auto) (0.0-4.3) % Baso % (Auto) (0.0-1.8) % Lymph # (Auto) (1.2-5.4) K/mm3 Hutchinson # (Auto) (0.0-0.8) K/mm3 Eos # (Auto) (0.0-0.4) K/mm3 Baso # (Auto) (0.0-0.1) K/mm3 Seg Neutrophils % (40.0-70.0) % Seg Neutrophils # (1.8-7.7) K/mm3 PT (12.2-14.9) Sec. INR (0.87-1.13) APTT (24.2-36.6) Sec. Thrombin Time (15.1-19.6) Sec. Sodium 141 (137-145) mmol/L Potassium 3.9 (3.6-5.0) mmol/L Chloride 104.1 (98-107) mmol/L Carbon Dioxide 25 (22-30) mmol/L Anion Gap 16 mmol/L BUN 13 (9-20) mg/dL Creatinine 1.2 (0.8-1.3) mg/dL Estimated GFR > 60 ml/min BUN/Creatinine Ratio 11 % Glucose 105 H (75-100) mg/dL POC Glucose (70-105) mg/dL Calcium 9.8 (8.4-10.2) mg/dL Total Bilirubin 0.70 (0.1-1.2) mg/dL AST 18 (5-40) units/L ALT 21 (7-56) units/L Alkaline Phosphatase 61 (35-129) units/L Total Creatine Kinase 156 (55-170) units/L CK-MB (CK-2) 5.2 H (0.0-4.0) ng/mL CK-MB (CK-2) Rel Index 3.3 (0-4) Troponin T < 0.010 (0.00-0.029) ng/mL Total Protein 7.5 (6.3-8.2) g/dL Albumin 4.4 (3.9-5) g/dL Albumin/Globulin Ratio 1.4 % Vital Signs 09/02/21 16:09 Temperature 97.8 F Pulse Rate 78 Respiratory 18 Rate Blood Pressure 169/91 [Right] O2 Sat by Pulse 97 Oximetry Lab Results 09/02/21 09/02/21 09/02/21 Range/Units 16:07 16:15 16:17 WBC 6.7 (4.5-11.0) K/mm3 RBC 4.95 (3.65-5.03) M/mm3 Hgb 14.7 (11.8-15.2) gm/dl Hct 44.2 (35.5-45.6) % MCV 89 (84-94) fl MCH 30 (28-32) pg MCHC 33 (32-34) % RDW 13.2 (13.2-15.2) % Plt Count 326 (140-440) K/mm3 Lymph % (Auto) 23.5 (13.4-35.0) % Hutchinson % (Auto) 6.8 (0.0-7.3) % Eos % (Auto) 0.8 (0.0-4.3) % Baso % (Auto) 0.8 (0.0-1.8) % Lymph # (Auto) 1.6 (1.2-5.4) K/mm3 Hutchinson # (Auto) 0.5 (0.0-0.8) K/mm3 Eos # (Auto) 0.1 (0.0-0.4) K/mm3 Baso # (Auto) 0.1 (0.0-0.1) K/mm3 Seg Neutrophils % 68.1 (40.0-70.0) % Seg Neutrophils # 4.5 (1.8-7.7) K/mm3 Sodium 141 (137-145) mmol/L Potassium 3.9 (3.6-5.0) mmol/L Chloride 104.1 (98-107) mmol/L Carbon Dioxide 25 (22-30) mmol/L Anion Gap 16 mmol/L BUN 13 (9-20) mg/dL Creatinine 1.2 (0.8-1.3) mg/dL Estimated GFR > 60 ml/min BUN/Creatinine Ratio 11 % Glucose 105 H (75-100) mg/dL POC Glucose 100 (70-105) mg/dL Calcium 9.8 (8.4-10.2) mg/dL Total Bilirubin 0.70 (0.1-1.2) mg/dL AST 18 (5-40) units/L ALT 21 (7-56) units/L Alkaline Phosphatase 61 (35-129) units/L Total Creatine Kinase 156 (55-170) units/L CK-MB (CK-2) 5.2 H (0.0-4.0) ng/mL CK-MB (CK-2) Rel Index 3.3 (0-4) Troponin T < 0.010 (0.00-0.029) ng/mL Total Protein 7.5 (6.3-8.2) g/dL Albumin 4.4 (3.9-5) g/dL Albumin/Globulin Ratio 1.4 % - EKG Data -: EKG Interpreted by Ak EKG shows normal: sinus rhythm Rate: normal 09/02/21 18:33 The EKG is interpreted at 18: 04 Sinus rhythm, left axis deviation. Poor R wave progression. Q waves noted inferiorly anteriorly and laterally. Denies chest pain. Abnormal EKG. This is not a STEMI - Radiology Data Radiology results: pending, report reviewed, image reviewed CT head/brain wo con INDICATION / CLINICAL INFORMATION: 61 years Male; Stroke symptoms. TECHNIQUE: Routine CT head without contrast. All CT scans at this location are performed using CT dose reduction for ALARA by means of automated exposure control. COMPARISON: The study is compared to previous CT of 02/07/2012. FINDINGS: BRAIN / INTRACRANIAL CONTENTS: There appear to be mild ce rebral white matter changes most consistent with microvascular angiopathy. The ventricular system is within normal limits in size and configuration. There is no clear CT evidence of acute intracranial hemorrhage or significant mass effect. ORBITS: No significant abnormality of visualized orbits. 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 Otherwise, the paranasal sinuses are pneumatized. CRANIOCERVICAL JUNCTION: No significant abnormality. ADDITIONAL FINDINGS: None. IMPRESSION: 1. There is mild microvascular angiopathy without CT evidence of acute intracranial hemorrhage. The study was specified as code stroke and called emergently to Dr. Tirado in the ER at 3:58 PM Central standard time. Signer Name: Ernesto Valles MD Signed: 09/02/2021 3:59 PM Workstation Name: [id number] CHEST 1 VIEW 09/02/2021 4:54 PM INDICATION / CLINICAL INFORMATION: cva. COMPARISON: One view of the chest from 08/23/2021. FINDINGS: SUPPORT DEVICES: None. HEART / MEDIASTINUM: No significant abnormality. LUNGS / PLEURA: Pre viously seen bilateral pulmonary edema has resolved. No new significant pulmonary abnormality. No significant pleural effusion. No pneumothorax. ADDITIONAL FINDINGS: No significant additional findings. IMPRESSION: 1. No acute abnormality of the chest. Signer Name: Pk Luque MD Signed: 09/02/2021 4:08 PM Workstation Name: [id number] CTA neck without and with intravenous contrast material CLINICAL HISTORY: stroke sx TECHNIQUE: Following acquisition of a timing bolus 0.625 mm thick contiguous axial scans were obtained from aortic arch to the skull base during rapid bolus intravenous contrast infusion. In addition to evaluation of axial source images multiplanar reconstructions were produced and reviewed for this report. 3 plane MIP reconstructions were produced and reviewed. Contrast dose report: Omnipaque 350: 100 ml, administered intravenously All CT examinations performed at this facility utilize modulated dose reduction, iterative reconstruction or weight-based dosing, as appropriate, to obtain a radiation dose which is as low as can reasonably be achieved. FINDINGS: Thoracic aorta:No abnormalities are identified along the course of the thoracic aorta..The origins of the great vessels have an unremarkable appearance. Brachiocephalic artery, left common carotid artery origin and left subclavian artery all have an unremarkable appearance. Right carotid artery:No abnormalities are seen along the course of the RCCA, at the right carotid bifurcation or along the cervical portions of the ERIK. Left carotid artery: Minimal calcified plaque is seen along the posterior margin of the left carotid bulb with no indication of associated stenosis. No significant abnormalities are noted along the course of the left common carotid artery, at the left carotid bifurcation or along the course of the cervical segments of the LICA. Posterior circulation:The vertebral arteries have an unremarkable appearance. Both vertebral arteries contribute to the basilar artery origin. The basilar artery has an unremarkable appearance. The degree of stenosis, if any, is determined utilizing NASCET like criteria. In this case there is no indication of hemodynamically significant stenosis at the carotid bifurcations or elsewhere. Evaluation of the nonvascular soft tissue structures reveal no abnormality. There is no indication of cervical lymphadenopathy. No abnormalities are seen along the course of the airway. Visualized portions of the parotid glands and the submandibular salivary glands have a normal appearance. Thyroid gland has a normal appearance. Evaluation of the lung apices reveals no evidence of lung nodule or infiltrate. Evaluation of the cervical spine revealed no significant abnormalities. IMPRESSION: 1. No indication of hemodynamically significant stenosis at the carotid bifurcations or elsewhere. CTA head with intravenous contrast CLINICAL HISTORY: stroke sx TECHNIQUE: 0.625 mm thick contiguous axial scans were obtained from the skull base to the skull vertex during rapid bolus administration of intravenous contrast material. Multiplanar reconstructions were produced in the coronal and sagittal planes. In addition 3 plane MIP instructions were produced and reviewed for this report. The axial source images and reconstructed images were reviewed for this report. CONTRAST DOSE REPORT: Omnipaque 350: 100 ml administered intravenously. All CT scans at this location are performed using CT dose reduction for ALARA by means of automated exposure control. FINDINGS: Internal carotid arteries:Calcified atherosclerotic plaque is seen along the course the cavernous segments of both internal carotid arteries. There is no indication of associated stenosis. Sylvia, cavernous, opthalmic, clinoid and supraclinoid segments of the ICAs have an otherwise unremarkable appearance. Middle cerebral arteries:Normal and symmetrical M1 segments of the middle cerebral arteries are demonstrated. No abnormalities are seen on evaluation of the insular or opercular branches. Anterior cerebral arteries:Bilaterally symmetrical A1 segments are demonstrated. No abnormalities are seen along the course of the A2 segments or their visual ized pericallosal branches. An intact anterior communicating artery is observed. Vertebral arteries:Bilaterally symmetrical vertebral arteries are demonstrated. Both vertebral arteries contribute to the basilar artery origin. Basilar artery:Basilar artery has an unremarkable appearance. Posterior cerebral arteries:Bilaterally symmetrical posterior cerebral arteries are identified. Posterior communicating arteries are not identified. Clark'S Point of [place]:Not intact. see above. Dural sinuses: Dural venous sinuses are well demonstrated on this exam. There is no evidence of dural sinus thrombosis. IMPRESSION: 1. No indication of intercranial stenosis or large vessel occlusion. Signer Name: Konrad Phelps MD Signed: 09/02/2021 4:28 PM Workstation Name: Virtual View [id number] - Core Measures Measure Exclusions: not indicated - Thrombolytic Inclusion/Exclusion Thrombolytic Exclusion Criteria: Onset of Symptoms Unknown Critical care attestation.: If time is entered above; I have spent that time in minutes in the direct care of this critically ill patient, excluding procedure time. ED Disposition Clinical Impression: Right leg weakness, History of coronary artery disease, Hypertension Disposition: 09 ADMITTED INPATIENT Is pt being admited?: Yes Does the pt Need Aspirin: No Condition: Good Instructions: Hypertension (ED)
--- NOTE | 2021-09-02 16:42 | Consultation ---
History of Present Illness Consult date: 09/02/21 History of present illness: [facility] Consult Note # Demographics Consult Type: Acute Stroke Level 1 (0-4.5 hrs) Patient Location: Emergency Room First Name: Blayne Last Name: Daniela Date of : 1960 Age: 61 Gender: Male Facility: [facility] Time of Initial Page ( Time): 09/02/2021, 16:11 Time of Return Call ( Time): 09/02/2021, 16:12 # HPI Chief Complaint: numbness History: The patient report right leg cold & numbness from knee down. Last Known Normal: I have collected independent history specific to time last normal or last known well. We have collaborated with the provider and at this time, we have the most current timeline with the information that is available. 12:30pm Duration: constant minutes hours Possible Thrombolytic candidate: not on warfarin or NOACs no intracranial hemorrhage history no recent major surgery # Scores Time of exam and NIHSS (): 09/02/2021, 16:23 Level of Consciousness 1a: [0] = Alert; keenly responsive LOC Questions 1b: [0] = Answers both questions correctly LOC Commands 1c: [0] = Performs both tasks correctly Best Gaze 2: [0] = Normal Visual 3: [0] = No visual loss Facial Palsy 4: [0] = Normal symmetrical movements Motor Arm Left 5a: [0] = No drift Motor Arm Right 5b: [0] = No drift Motor Leg Left 6a: [0] = No drift Motor Leg Right 6b: [0] = No drift Limb Ataxia 7: [0] = Absent Sensory 8: [1] = Suwk-[id number] sensory loss Best Language 9: [0] = No aphasia Dysarthria 10: [0] = Normal Extinction and Inattention 11: [0] = No abnormality NIHSS Total: 1 Modified Kemper Scale (mRS) pre-stroke: [0] = No Symptoms Modified Kemper Scale total: 0 VAN Screening: Negative # Exam Vitals: 97.8 SBP: 169 DBP: 91 Mental Status: awake alert and oriented x 3 follows commands Language: normal speech Sensory: decreased sensation right lower extremity Cerebellar: normal finger nose # ROS Pulmonary: no shortness of breath Cardiovascular: no chest pain # PMH-FH-SH Past Medical History: congestive heart failure [place] s/p PCI Social History: smoker Medications: antihypertensive aspirin lipid lowering agent plavix Allergies: NKDA # Data Glucose: [address] personally read by me (Eastern Time): 09/02/2021, 16:[address]: no bleed preliminarily reviewed by me, please refer to radiology read for official reading # Assessment Impression: Stroke versus peripheral nerve pathology # Plan Thrombolytic/Intervention: NOT IV Thrombolysis or IA Intervention candidate Thrombolytic Exclusion (< 3 hour window): family/ patient refusal Thrombolytic Exclusion: After discussing the risks & benefits, the patient elected not to pursue thrombolytic therapy. Target Blood Pressure: SBP < 220 Labs: B12 CBC comprehensive metabolic panel ESR hemoglobin A1c lipid panel troponin TSH urine drug screen ua Imaging: (urgency: STAT): CT Angiogram Head and CT Angiogram Neck AND call back with results if abnormal Imaging: (urgency: routine): MRI Brain without contrast Diagnostic Test: echo without bubble study Therapy/Evaluation: NPO until swallow evaluation PT/OT evaluation Medication: Continue outpatient medication regimen pending diagnostic results. DVT Prophylaxis: SCD chemical DVT prophylaxis Other: permissive hypertension telemetry monitoring I have discussed my recommendations with the referring provider Additional Recommendations: Academic Adviser tobacco cessation Disposition: admit Medications and Allergies Allergies Allergy/AdvReac Type Severity Reaction Status Date / Time No Known Allergies Allergy Verified 04/12/14 20:08 Home Medications Medication Instructions Recorded Confirmed Last Taken Type Aspirin [Aspirin BABY CHEW TAB] 81 mg PO QDAY 30 Days #30 tab.chew 05/27/21 08/22/21 Unknown Rx Amoxicillin/K Clav Tab [Augmentin 1 each PO Q12HR #13 tablet 08/25/21 Unknown Rx 500 MG TAB] AtorvaSTATin [Lipitor] 40 mg PO QHS #30 tab 08/25/21 Unknown Rx Clopidogrel [Plavix] 75 mg PO QDAY 30 Days #30 tab 08/25/21 Unknown Rx Furosemide [Lasix TAB] 20 mg PO QDAY 30 Days #30 tablet 08/25/21 Unknown Rx carvediloL [Coreg] 25 mg PO BID 30 Days #60 tab 08/25/21 Unknown Rx hydrALAZINE [Apresoline TAB] 25 mg PO Q8HR #90 tablet 08/25/21 Unknown Rx Physical Examination - Vital Signs Vital Signs: Vital Signs Temp Pulse Resp BP Pulse Ox 97.8 F 78 18 169/91 97 09/02/21 16:09 09/02/21 16:09 09/02/21 16:09 09/02/21 16:09 09/02/21 16:09 Results - Laboratory Findings CBC and BMP: 09/02/21 16:15
[2021-09-02 16:43] LABS: Creatine Kinase MB 5.2 ng/mL (0.0-4.0)
[2021-09-02 16:48] LABS: Alanine Aminotransferase 21 units/L (7-56); Albumin 4.4 g/dL (3.9-5); BUN/Creatinine Ratio 11; Blood Urea Nitrogen 13 mg/dL (9-20); Calcium 9.8 mg/dL (8.4-10.2); Hemolysis Index 3
[2021-09-02 16:53] LABS: INR 0.94 (0.87-1.13)
--- NOTE | 2021-09-02 17:03 | Cat Scan Report ---
CT head/brain wo con INDICATION / CLINICAL INFORMATION: 61 years Male; Stroke symptoms. TECHNIQUE: Routine CT head without contrast. All CT scans at this location are performed using CT dos e reduction for ALARA by means of automated exposure control. COMPARISON: The study is compared to previous CT of 02/07/2012. FINDINGS: BRAIN / INTRACRANIAL CONTENTS: There appear to be mild cerebral white matter changes most consistent with microvascular angiopathy. The ventricular system is within normal limits in size and configurati on. There is no clear CT evidence of acute intracranial hemorrhage or significant mass effect. ORBITS: No significant abnormality of visualized orbits. 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 Otherwise, the paranasal sinuses are pneumatized. CRANIOCERVICAL JUNCTION: No significant abnormality. ADDITIONAL FINDINGS: None. IMPRESSION: 1. There is mild microvascular angiopathy without CT evidence of acute intracranial hemorrhage. The study was specified as code stroke and called emergently to Dr. Tirado in the ER at 3:58 PM [place] tra standard time. Signer Name: Ernesto Valles MD Signed: 09/02/2021 4:59 PM Workstation Name: [id number]
--- NOTE | 2021-09-02 17:12 | XRay Report ---
CHEST 1 VIEW 09/02/2021 4:54 PM INDICATION / CLINICAL INFORMATION: cva. COMPARISON: One view of the chest from 08/23/2021. FINDINGS: SUPPORT DEVICES: None. HEART / MEDIASTINUM: No significant abnormality. LUNGS / PLEURA: Previously seen bilateral pulmonary edema has resolved. No new significant pulmonary abnormality. No significant pleural effusion. No pneumothorax. ADDITIONAL FINDINGS: No significant additional findings. IMPRESSION: 1. No acute abnormality of the chest. Signer Name: Pk Luque MD Signed: 09/02/2021 5:08 PM Workstation Name: [id number]
--- NOTE | 2021-09-02 17:33 | Cat Scan Report ---
CTA neck without and with intravenous contrast material CLINICAL HISTORY: stroke sx TECHNIQUE: Following acquisition of a timing bolus 0.625 mm thick contiguous axial scans were obtained from aort ic arch to the skull base during rapid bolus intravenous contrast infusion. In addition to evaluation of axial source images multiplanar reconstructions were produced and reviewed for this report. 3 ana ne MIP reconstructions were produced and reviewed. Contrast dose report: Omnipaque 350: 100 ml, administered intravenously All CT examinations performed at this facility utilize modulated dose reduction, iterative reconstruc tion or weight-based dosing, as appropriate, to obtain a radiation dose which is as low as can reason ably be achieved. FINDINGS: Thoracic aorta:No abnormalities are identified along the course of the thoracic aorta..The origins of the great vessels have an unremarkable appearance. Brachiocephalic artery, left common carotid arter y origin and left subclavian artery all have an unremarkable appearance. Right carotid artery:No abnormalities are seen along the course of the RCCA, at the right carotid bif urcation or along the cervical portions of the ERIK. Left carotid artery: Minimal calcified plaque is seen along the posterior margin of the left carotid bulb with no indication of associated stenosis. No significant abnormalities are noted along the cour se of the left common carotid artery, at the left carotid bifurcation or along the course of the cerv ical segments of the LICA. Posterior circulation:The vertebral arteries have an unremarkable appearance. Both vertebral arteries contribute to the basilar artery origin. The basilar artery has an unremarkable appearance. The degree of stenosis, if any, is determined utilizing NASCET like criteria. In this case there is no indication of hemodynamically significant stenosis at the carotid bifurcations or elsewhere. Evaluation of the nonvascular soft tissue structures reveal no abnormality. There is no indication of cervical lymphadenopathy. No abnormalities are seen along the course of the airway. Visualized porti ons of the parotid glands and the submandibular salivary glands have a normal appearance. Thyroid gla nd has a normal appearance. Evaluation of the lung apices reveals no evidence of lung nodule or infil trate. Evaluation of the cervical spine revealed no significant abnormalities. IMPRESSION: 1. No indication of hemodynamically significant stenosis at the carotid bifurcations or elsewhere. CTA head with intravenous contrast CLINICAL HISTORY: stroke sx TECHNIQUE: 0.625 mm thick contiguous axial scans were obtained from the skull base to the skull vertex during r apid bolus administration of intravenous contrast material. Multiplanar reconstructions were produced in the coronal and sagittal planes. In addition 3 plane MIP instructions were produced and reviewed for this report. The axial source images and reconstructed images were reviewed for this report. CONTRAST DOSE REPORT: Omnipaque 350: 100 ml administered intravenously. All CT scans at this location are performed using CT dose reduction for ALARA by means of automated e xposure control. FINDINGS: Internal carotid arteries:Calcified atherosclerotic plaque is seen along the course the cavernous seg ments of both internal carotid arteries. There is no indication of associated stenosis. Sylvia, nba nous, opthalmic, clinoid and supraclinoid segments of the ICAs have an otherwise unremarkable appeara nce. Middle cerebral arteries:Normal and symmetrical M1 segments of the middle cerebral arteries are demon strated. No abnormalities are seen on evaluation of the insular or opercular branches. Anterior cerebral arteries:Bilaterally symmetrical A1 segments are demonstrated. No abnormalities are seen along the course of the A2 segments or their visualized pericallosal branches. An intact anteri or communicating artery is observed. Vertebral arteries:Bilaterally symmetrical vertebral arteries are demonstrated. Both vertebral arteri es contribute to the basilar artery origin. Basilar artery:Basilar artery has an unremarkable appearance. Posterior cerebral arteries:Bilaterally symmetrical posterior cerebral arteries are identified. Post erior communicating arteries are not identified. [place]:Not intact. see above. Dural sinuses: Dural venous sinuses are well demonstrated on this exam. There is no evidence of dural sinus thrombosis. IMPRESSION: 1. No indication of intercranial stenosis or large vessel occlusion. Signer Name: Konrad Phelps MD Signed: 09/02/2021 5:28 PM Workstation Name: [id number]
[2021-09-02] MEDS ORDERED: ASPIRIN 81 MG TAB CHEW PO ONE (17:42)
[2021-09-02] MEDS ORDERED: CLOPIDOGREL 75 MG TAB PO ONE (17:42)
[2021-09-02] MEDS ORDERED: SODIUM CHLORIDE 0.9% 250ML 250 ML IV ONE (17:44)
--- NOTE | 2021-09-02 18:43 | History and Physical Report ---
History of Present Illness Date of examination: 09/02/21 Date of admission: 09/02/2021 Chief complaint: Right lower extremity numbness since a.m. History of present illness: 51-year-old -[place] male with history of coronary artery disease s/p AR, s/p stent, hyper systolic heart failure and nicotine dependence comes in with right leg numbness. Patient states that his numbness was from the knee to the foot which is becoming better and now the numbness is only in the foot. No dysarthria. No weakness on the right side. 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 No weakness of the right upper extremity. No weakness in the right lower extremity. - Past Medical History --Hypertension: Yes --Heart Attack/AMI: Yes (2017) --GERD: Yes -- CAD - Surgical History Hx Coronary Stent: Yes (2017) - Social History Smoking Status: Former Smoker Family history Htn - Medications Home Medications: Home Medications Medication Instructions Recorded Confirmed Last Taken Type Aspirin [Aspirin BABY CHEW TAB] 81 mg PO QDAY 30 Days #30 tab.chew 05/27/21 08/22/21 Unknown Rx Amoxicillin/K Clav Tab [Augmentin 1 each PO Q12HR #13 tablet 08/25/21 Unknown Rx 500 MG TAB] AtorvaSTATin [Lipitor] 40 mg PO QHS #30 tab 08/25/21 Unknown Rx Clopidogrel [Plavix] 75 mg PO QDAY 30 Days #30 tab 08/25/21 Unknown Rx Furosemide [Lasix TAB] 20 mg PO QDAY 30 Days #30 tablet 08/25/21 Unknown Rx carvediloL [Coreg] 25 mg PO BID 30 Days #60 tab 08/25/21 Unknown Rx hydrALAZINE [Apresoline TAB] 25 mg PO Q8HR #90 tablet 08/25/21 Unknown Rx Review of Systems ROS: Stated complaint: NO FEELING IN RT LEG Other details as noted in HPI Constitutional: denies: fever Eyes: denies: eye discharge ENT: denies: epistaxis Respiratory: denies: cough Cardiovascular: denies: chest pain Gastrointestinal: denies: abdominal pain Genitourinary: denies: dysuria Musculoskeletal: myalgia. denies: back pain Neurological: weakness, numbness Medications and Allergies Allergies Allergy/AdvReac Type Severity Reaction Status Date / Time No Known Allergies Allergy Verified 04/12/14 20:08 Home Medications Medication Instructions Recorded Confirmed Last Taken Type Aspirin [Aspirin BABY CHEW TAB] 81 mg PO QDAY 30 Days #30 tab.chew 05/27/21 08/22/21 Unknown Rx Amoxicillin/K Clav Tab [Augmentin 1 each PO Q12HR #13 tablet 08/25/21 Unknown Rx 500 MG TAB] AtorvaSTATin [Lipitor] 40 mg PO QHS #30 tab 08/25/21 Unknown Rx Clopidogrel [Plavix] 75 mg PO QDAY 30 Days #30 tab 08/25/21 Unknown Rx Furosemide [Lasix TAB] 20 mg PO QDAY 30 Days #30 tablet 08/25/21 Unknown Rx carvediloL [Coreg] 25 mg PO BID 30 Days #60 tab 08/25/21 Unknown Rx hydrALAZINE [Apresoline TAB] 25 mg PO Q8HR #90 tablet 08/25/21 Unknown Rx Exam - Constitutional Vitals: Temp Pulse Resp BP Pulse Ox 97.8 F 77 17 121/73 100 09/02/21 16:09 09/02/21 18:00 09/02/21 18:00 09/02/21 18:00 09/02/21 18:00 General appearance: Present: no acute distress, well-nourished - EENT Eyes: Present: PERRL ENT: hearing intact, clear oral mucosa - Neck Neck: Present: supple, normal ROM - Respiratory Respiratory effort: normal Respiratory: bilateral: CTA - Cardiovascular Heart rate: 78 Rhythm: regular Heart Sounds: Present: S1 & S2. Absent: rub, click - Extremities Extremities: pulses symmetrical, No edema Peripheral Pulses: within normal limits - Abdominal General gastrointestinal: Present: soft, non-tender, non-distended, normal bowel sounds Male genitourinary: Present: normal - Rectal Rectal Exam: deferred - Integumentary Integumentary: Present: clear, warm, dry - Musculoskeletal Musculoskeletal: gait normal, strength equal bilaterally - Psychiatric Psychiatric: appropriate mood/affect, intact judgment & insight - Neurologic Neurologic: CNII-XII intact, moves all extremities, other (No decreased sensation in the right lower extremity.) - Allied Health Allied health notes reviewed: nursing, case management HEART Score - HEART Score Troponin: Troponin T < 0.010 ng/mL (0.00-0.029) 09/02/21 16:17 Results - Labs CBC & Chem 7: 09/02/21 16:15 09/02/21 16:17 Labs: Laboratory Last Values WBC 6.7 K/mm3 (4.5-11.0) 09/02/21 16:15 RBC 4.95 M/mm3 (3.65-5.03) 09/02/21 16:15 Hgb 14.7 gm/dl (11.8-15.2) 09/02/21 16:15 Hct 44.2 % (35.5-45.6) 09/02/21 16:15 MCV 89 fl (84-94) 09/02/21 16:15 MCH 30 pg (28-32) 09/02/21 16:15 MCHC 33 % (32-34) 09/02/21 16:15 RDW 13.2 % (13.2-15.2) 09/02/21 16:15 Plt Count 326 K/mm3 (140-440) 09/02/21 16:15 Lymph % (Auto) 23.5 % (13.4-35.0) 09/02/21 16:15 [place] % (Auto) 6.8 % (0.0-7.3) 09/02/21 16:15 Eos % (Auto) 0.8 % (0.0-4.3) 09/02/21 16:15 Baso % (Auto) 0.8 % (0.0-1.8) 09/02/21 16:15 Lymph # (Auto) 1.6 K/mm3 (1.2-5.4) 09/02/21 16:15 [place] # (Auto) 0.5 K/mm3 (0.0-0.8) 09/02/21 16:15 Eos # (Auto) 0.1 K/mm3 (0.0-0.4) 09/02/21 16:15 Baso # (Auto) 0.1 K/mm3 (0.0-0.1) 09/02/21 16:15 Seg Neutrophils % 68.1 % (40.0-70.0) 09/02/21 16:15 Seg Neutrophils # 4.5 K/mm3 (1.8-7.7) 09/02/21 16:15 PT 13.6 Sec. (12.2-14.9) 09/02/21 16:15 INR 0.94 (0.87-1.13) 09/02/21 16:15 APTT 36.0 Sec. (24.2-36.6) 09/02/21 16:15 Thrombin Time 17.0 Sec. (15.1-19.6) 09/02/21 16:15 Sodium 141 mmol/L (137-145) 09/02/21 16:17 Potassium 3.9 mmol/L (3.6-5.0) 09/02/21 16:17 Chloride 104.1 mmol/L (98-107) 09/02/21 16:17 Carbon Dioxide 25 mmol/L (22-30) 09/02/21 16:17 Anion Gap 16 mmol/L 09/02/21 16:17 BUN 13 mg/dL (9-20) 09/02/21 16:17 Creatinine 1.2 mg/dL (0.8-1.3) 09/02/21 16:17 Estimated GFR > 60 ml/min 09/02/21 16:17 BUN/Creatinine Ratio 11 % 09/02/21 16:17 Glucose 105 mg/dL (75-100) H 09/02/21 16:17 POC Glucose 100 mg/dL (70-105) 09/02/21 16:07 Calcium 9.8 mg/dL (8.4-10.2) 09/02/21 16:17 Total Bilirubin 0.70 mg/dL (0.1-1.2) 09/02/21 16:17 AST 18 units/L (5-40) 09/02/21 16:17 ALT 21 units/L (7-56) 09/02/21 16:17 Alkaline Phosphatase 61 units/L (35-129) 09/02/21 16:17 Total Creatine Kinase 156 units/L (55-170) 09/02/21 16:17 CK-MB (CK-2) 5.2 ng/mL (0.0-4.0) H 09/02/21 16:17 CK-MB (CK-2) Rel Index 3.3 (0-4) 09/02/21 16:17 Troponin T < 0.010 ng/mL (0.00-0.029) 09/02/21 16:17 Total Protein 7.5 g/dL (6.3-8.2) 09/02/21 16:17 Albumin 4.4 g/dL (3.9-5) 09/02/21 16:17 Albumin/Globulin Ratio 1.4 % 09/02/21 16:17 Assessment and Plan Advance Directives: Yes (Full code) VTE prophylaxis?: Chemical Plan of care discussed with patient/family: Yes - Patient Problems (1) Acute CVA (cerebrovascular accident) Current Visit: Yes Status: Acute Plan to address problem: Possible TIA CVA unlikely Patient complains only of right foot numbness now Neurology consult MRI requested Echocardiogram requested (2) Hypertension Current Visit: Yes Status: Chronic Qualifiers: Hypertension type: primary hypertension Qualified Code(s): I10 - Essential (primary) hypertension Plan to address problem: Continue antihypertensive (3) Coronary artery disease Current Visit: Yes Status: Chronic Qualifiers: Coronary Disease-Associated Artery/Lesion type: [place] artery [place] vs. transplanted heart: [place] heart Plan to address problem: Continue aspirin and Plavix (4) Hyperlipidemia Current Visit: Yes Status: Chronic Qualifiers: Hyperlipidemia type: mixed hyperlipidemia Qualified Code(s): E78.2 - Mixed hyperlipidemia Plan to address problem: Continue statins (5) DVT prophylaxis Current Visit: Yes Status: Acute Plan to address problem: On anticoagulation GI prophylaxis (6) Advance care planning Current Visit: Yes Status: Acute Plan to address problem: Disease education conducted, care plan discussed, diagnosis discussed, prognosis discussed. Patient is full code. Patient acknowledges understanding and agreement with care plan. +30 minutes.
[2021-09-02] MEDS ORDERED: SODIUM CHLORIDE 0.9% 1000 ML 1,000 ML IV SCH (18:45)
[2021-09-02] MEDS ORDERED: ACETAMINOPHEN 325 MG TAB PO PRN (18:45)
[2021-09-02] MEDS ORDERED: ONDANSETRON 4 MG/2 ML INJ IV PRN (18:45)
[2021-09-02] MEDS ORDERED: HYDROmorphone 1 MG/1 ML INJ IV PRN (18:48)
[2021-09-02] MEDS ORDERED: METOCLOPRAMIDE 10 MG/2 ML INJ IV PRN (18:48)
[2021-09-02] MEDS ORDERED: oxyCODONE /ACETAMINOPHEN 5-325MG TAB PO PRN (18:48)
[2021-09-02] MEDS: ASPIRIN 81 MG TAB CHEW PO SCH (20:17)
[2021-09-02] MEDS: FUROSEMIDE 20 MG TAB PO SCH (20:17)
[2021-09-02] MEDS: hydrALAZINE 25 MG TAB PO SCH (22:40)
[2021-09-02] MEDS: carvediloL 25 MG TAB PO SCH (22:43)
[2021-09-03] MEDS: hydrALAZINE 25 MG TAB PO SCH ×3 (06:15→23:58)
[2021-09-03] MEDS: carvediloL 25 MG TAB PO SCH ×2 (09:00→23:57)
[2021-09-03] MEDS: CLOPIDOGREL 75 MG TAB PO SCH (09:00)
[2021-09-03] MEDS: FUROSEMIDE 20 MG TAB PO SCH (09:00)
[2021-09-03] MEDS: ASPIRIN 81 MG TAB CHEW PO SCH (09:00)
--- NOTE | 2021-09-03 10:26 | Electrocardiograph Report ---
[facility] Test Date: 2021-09-02 Test Time: 18:04:00 Pat Name: KYLE GOMEZ Department: Room: [place] [address] Gender: M [facility] Director: JOSE G : 1960 Requested By: SOTERO JEFFERY Order Number: [id number] Reading MD: Loi Hirsch Measurements Intervals [place] Rate: 70 P: 33 DE: 154 QRS: -49 QRSD: 90 T: 101 QT: 404 QTc: 436 Interpretive Statements Sinus rhythm Left ventricular hypertrophy ST elevation secondary to LVH Compared to ECG 08/24/2021 18:49:06 ST (T wave) deviation now present Myocardial infarct finding no longer present Electronically Signed On 09-03-2021 10:25:45 EDT by Loi Hirsch
[2021-09-03 10:41] LABS: Basophils % (Auto) 0.5 % (0.0-1.8); Eosinophils # (Auto) 0.1 K/mm3 (0.0-0.4); Eosinophils % (Auto) 0.9 % (0.0-4.3); Hematocrit 42.5 % (35.5-45.6); Hemoglobin 14.2 gm/dl (11.8-15.2); Lymphocytes # (Auto) 2.1 K/mm3 (1.2-5.4); Mean Corpuscular HGB Conc 34 % (32-34); Mean Corpuscular Volume 90 fl (84-94); Monocytes # (Auto) 0.5 K/mm3 (0.0-0.8); Monocytes % (Auto) 7.6 % (0.0-7.3); Platelet Count 275 K/mm3 (140-440); Red Blood Count 4.72 M/mm3 (3.65-5.03)
[2021-09-03 10:51] LABS: BUN/Creatinine Ratio 11; Blood Urea Nitrogen 13 mg/dL (9-20)
[2021-09-03 10:52] LABS: Alanine Aminotransferase 18 units/L (7-56); Albumin 4.2 g/dL (3.9-5); Calcium 9.6 mg/dL (8.4-10.2); Hemolysis Index 73
[2021-09-03 10:53] LABS: Chol/HDL Ratio 3.25 %
--- NOTE | 2021-09-03 17:26 | Magnetic Resonance Report ---
NONENHANCED MR SCAN OF THE BRAIN: INDICATION / CLINICAL INFORMATION: CVA--RIGHT LEG WEAKNESS. TECHNIQUE: Multiplanar, multisequence MR images of the brain obtained. COMPARISON: CT scan of the head from yesterday FINDINGS: BRAIN / INTRACRANIAL CONTENTS: Punctate areas of subacute ischemia in the left posterior insula and i n the left posterior parietal border zone; these are more than 12 levels old (increased T2 signal int ensity) but less than 5 days old (low ADC). In the gradient echo images, no hemorrhagic transformatio n or any other hemorrhagic changes seen. Brainstem normal. Chronic streaky ischemia seen in the right cerebellar hemisphere. In the cerebral hemispheres, white matter lesions ([place] 0-1) seen bilaterally due to chronic small vessel disease. CRANIOCERVICAL JUNCTION: No significant abnormality. VASCULAR FLOW-VOIDS: No significant abnormality. ORBITS: No significant abnormality of visualized orbits. SINUSES / MASTOIDS: No significant abnormality of visualized sinuses and mastoid air cells. ADDITIONAL FINDINGS: None. IMPRESSION: 1. Focal subacute ischemia in the left insular cortex and in the left posterior parietal internal and external border zone Signer Name: Fernie Mcgowan MD Signed: 09/03/2021 5:22 PM Workstation Name: [id number]
--- NOTE | 2021-09-03 18:19 | Progress Note ---
Assessment and Plan Assessment and plan: #Acute ischemic CVA - unremarkable CT head noncontrast - MRI brain revealing "Focal subacute ischemia in the left insular cortex and in the left posterior parietal internal and external border zone" - Neurology consulted; appreciate recs - TTE unremarkable for PFO. - Continue ASA 325mg daily, atorvastatin 40mg daily - Physicial therapy, Occupational therapy consulted; pending recs - Pending lipid panel and hemoglobin A1c #Hypertension #Hyperlipidemia - home medications: Coreg 25mg BID, furosemide 20mg daily, po hydralazine 25mg q8hrs - current medications: Coreg 25mg BID, furosemide 20mg daily, po hydralazine 25mg q8hrs - SBP goal <160 and DBP goal <90 while inpatient - continue to monitor #Chronic CAD complicated by stent -Continue aspirin 325 mg daily, Plavix 75 mg daily, Entresto [id number] twice daily, coreg 25mg BID, lasix 20mg daily, po hydralazine 25mg q8hrs #Advanced care planning -Disease education conducted, care plan discussed, diagnoses discussed, prognosis discussed, and patient acknowledges understanding with care plan -Time: +30 min Disposition Plan: Continue medical management Total Time Spent with Patient (Minutes): 45 min History Interval history: No acute events overnight. Hospitalist Physical - Constitutional Vitals: Temp Pulse Resp BP Pulse Ox 97.9 F 79 14 110/76 100 09/03/21 07:18 09/03/21 13:33 09/03/21 13:33 09/03/21 13:33 09/03/21 13:16 General appearance: Present: no acute distress, well-nourished - EENT Eyes: Present: PERRL, EOM intact ENT: hearing intact, clear oral mucosa, dentition normal - Neck Neck: Present: supple, normal ROM - Respiratory Respiratory effort: normal Respiratory: bilateral: CTA - Cardiovascular Rhythm: regular Heart Sounds: Present: S1 & S2 - Extremities Extremities: no ischemia, pulses intact, pulses symmetrical, No edema, normal te mperature, normal color, Full ROM Peripheral Pulses: within normal limits - Abdominal General gastrointestinal: soft, non-tender, non-distended, normal bowel sounds - Integumentary Integumentary: Present: clear, warm, dry - Psychiatric Psychiatric: appropriate mood/affect, intact judgment & insight, memory intact, cooperative - Neurologic Neurologic: CNII-XII intact, moves all extremities - Allied Health Allied health notes reviewed: nursing HEART Score - HEART Score Troponin: Troponin T < 0.010 ng/mL (0.00-0.029) 09/02/21 16:17 Results - Labs CBC & Chem 7: 09/03/21 10:16 09/03/21 10:16 Labs: Laboratory Last Values WBC 6.3 K/mm3 (4.5-11.0) 09/03/21 10:16 RBC 4.72 M/mm3 (3.65-5.03) 09/03/21 10:16 Hgb 14.2 gm/dl (11.8-15.2) 09/03/21 10:16 Hct 42.5 % (35.5-45.6) 09/03/21 10:16 MCV 90 fl (84-94) 09/03/21 10:16 MCH 30 pg (28-32) 09/03/21 10:16 MCHC 34 % (32-34) 09/03/21 10:16 RDW 13.0 % (13.2-15.2) L 09/03/21 10:16 Plt Count 275 K/mm3 (140-440) 09/03/21 10:16 Lymph % (Auto) 34.0 % (13.4-35.0) 09/03/21 10:16 [place] % (Auto) 7.6 % (0.0-7.3) H 09/03/21 10:16 Eos % (Auto) 0.9 % (0.0-4.3) 09/03/21 10:16 Baso % (Auto) 0.5 % (0.0-1.8) 09/03/21 10:16 Lymph # (Auto) 2.1 K/mm3 (1.2-5.4) 09/03/21 10:16 [place] # (Auto) 0.5 K/mm3 (0.0-0.8) 09/03/21 10:16 Eos # (Auto) 0.1 K/mm3 (0.0-0.4) 09/03/21 10:16 Baso # (Auto) 0.0 K/mm3 (0.0-0.1) 09/03/21 10:16 Seg Neutrophils % 57.0 % (40.0-70.0) 09/03/21 10:16 Seg Neutrophils # 3.6 K/mm3 (1.8-7.7) 09/03/21 10:16 PT 13.6 Sec. (12.2-14.9) 09/02/21 16:15 INR 0.94 (0.87-1.13) 09/02/21 16:15 APTT 36.0 Sec. (24.2-36.6) 09/02/21 16:15 Thrombin Time 17.0 Sec. (15.1-19.6) 09/02/21 16:15 Sodium 141 mmol/L (137-145) 09/03/21 10:16 Potassium 4.2 mmol/L (3.6-5.0) 09/03/21 10:16 Chloride 103.2 mmol/L (98-107) 09/03/21 10:16 Carbon Dioxide 26 mmol/L (22-30) 09/03/21 10:16 Anion Gap 16 mmol/L 09/03/21 10:16 BUN 13 mg/dL (9-20) 09/03/21 10:16 Creatinine 1.2 mg/dL (0.8-1.3) 09/03/21 10:16 Estimated GFR > 60 ml/min 09/03/21 10:16 BUN/Creatinine Ratio 11 % 09/03/21 10:16 Glucose 100 mg/dL (75-100) 09/03/21 10:16 POC Glucose 113 mg/dL (70-105) H 09/02/21 20:19 Hemoglobin A1c 5.6 % (4-6) 09/03/21 10:16 Calcium 9.6 mg/dL (8.4-10.2) 09/03/21 10:16 Total Bilirubin 0.70 mg/dL (0.1-1.2) 09/03/21 10:16 AST 18 units/L (5-40) 09/03/21 10:16 ALT 18 units/L (7-56) 09/03/21 10:16 Alkaline Phosphatase 57 units/L (35-129) 09/03/21 10:16 Total Creatine Kinase 156 units/L (55-170) 09/02/21 16:17 CK-MB (CK-2) 5.2 ng/mL (0.0-4.0) H 09/02/21 16:17 CK-MB (CK-2) Rel Index 3.3 (0-4) 09/02/21 16:17 Troponin T < 0.010 ng/mL (0.00-0.029) 09/02/21 16:17 Total Protein 6.9 g/dL (6.3-8.2) 09/03/21 10:16 Albumin 4.2 g/dL (3.9-5) 09/03/21 10:16 Albumin/Globulin Ratio 1.6 % 09/03/21 10:16 Triglycerides 71 mg/dL (2-149) 09/03/21 10:16 Cholesterol 127 mg/dL (50-199) 09/03/21 10:16 LDL Cholesterol Direct 74 mg/dL (50-130) 09/03/21 10:16 HDL Cholesterol 39 mg/dL (40-59) L 09/03/21 10:16 Cholesterol/HDL Ratio 3.25 % 09/03/21 10:16 Active Medications - Current Medications Current Medications: Generic Name Dose Route Start Last Admin Trade Name Freq PRN Reason Stop Dose Admin Acetaminophen 650 mg 09/02/21 18:45 Acetaminophen 325 Mg Tab PO Q4H PRN Pain MILD(1-3)/Fever >100.5/COOK Aspirin 81 mg 09/02/21 19:00 09/03/21 09:00 Aspirin 81 Mg Tab Chew PO 81 mg QDAY KAYLYNN Administration Atorvastatin Calcium 40 mg 09/02/21 22:00 09/02/21 22:44 Atorvastatin 40 Mg Tab PO 40 mg QHS KAYLYNN Administration Carvedilol 25 mg 09/02/21 22:00 09/03/21 09:00 Carvedilol 25 Mg Tab PO 25 mg BID KAYLYNN Administration Clopidogrel Bisulfate 75 mg 09/03/21 10:00 09/03/21 09:00 Clopidogrel 75 Mg Tab PO 75 mg QDAY KAYLYNN Administration Furosemide 20 mg 09/02/21 19:00 09/03/21 09:00 Furosemide 20 Mg Tab PO 20 mg QDAY KAYLYNN Administration Hydralazine HCl 25 mg 09/02/21 22:00 09/03/21 06:15 Hydralazine 25 Mg Tab PO 25 mg Q8HR KAYLYNN Administration Hydromorphone HCl 0.5 mg 09/02/21 18:48 09/03/21 06:28 Hydromorphone 1 Mg/1 Ml Inj IV 0.5 mg Q3H PRN Administration Pain , Severe (7-10) Metoclopramide HCl 10 mg 09/02/21 18:48 Metoclopramide 10 Mg/2 Ml Inj IV Q6H PRN Nausea And Vomiting Ondansetron HCl 4 mg 09/02/21 18:45 Ondansetron 4 Mg/2 Ml Inj IV Q8H PRN Nausea And Vomiting Oxycodone/Acetaminophen 1 tab 09/02/21 18:48 Oxycodone /Acetaminophen 5-325mg Tab PO Q6H PRN Pain, Moderate (4-6) Sacubitril/Valsartan 2 each 09/03/21 22:00 Sacubitril/Valsartan 49-51 Mg Tab PO BID KAYLYNN Sodium Chloride 10 ml 09/02/21 22:00 09/03/21 11:26 Sodium Chloride 0.9% 10 Ml Flush Syringe IV Not Given BID KAYLYNN Sodium Chloride 10 ml 09/02/21 18:45 Sodium Chloride 0.9% 10 Ml Flush Syringe IV PRN PRN LINE FLUSH
--- NOTE | 2021-09-03 22:51 | Consultation ---
History of Present Illness Consult date: 09/03/21 Reason for Consult: Right Leg Paresthesias Chief complaint: Right Leg Coldness History of present illness: 61 yo, right-handed male with htn, cadx, heart failure, tobacco abuse, who presents with acute onset of right leg numbness ("coldness" per patient). Per H&P, noted initially involving the whole leg but then only noted at the right foot. However, patient currently states that the sensory changes involve the w hole right leg and creates a sense of "heaviness" even though he does not note any weakness. He denies any other part of his body being involved. Notes he was not straining or noted any chest pain/pressure or neck/back pain near this event. Notes he has been at his baseline form a health standpoint lately. He notes "pain" involving the right leg and notes that the current medication he had received within the last 3 hours is wearing off. Past History Past Medical History: CAD, heart failure, hypertension Past Surgical History: No surgical history Social history: no significant social history, smoking Family history: no significant family history Medications and Allergies Allergies Allergy/AdvReac Type Severity Reaction Status Date / Time No Known Allergies Allergy Verified 09/03/21 13:53 Home Medications Medication Instructions Recorded Confirmed Last Taken Type Aspirin [Aspirin BABY CHEW TAB] 81 mg PO QDAY 30 Days #30 tab.chew 05/27/21 09/03/21 09/02/21 Rx Amoxicillin/K Clav Tab [Augmentin 1 each PO Q12HR #13 tablet 08/25/21 09/03/21 Unknown Rx 500 MG TAB] AtorvaSTATin [Lipitor] 40 mg PO QHS #30 tab 08/25/21 09/03/21 09/02/21 Rx Clopidogrel [Plavix] 75 mg PO QDAY 30 Days #30 tab 08/25/21 09/03/21 09/02/21 Rx Furosemide [Lasix TAB] 20 mg PO QDAY 30 Days #30 tablet 08/25/21 09/03/21 09/02/21 Rx carvediloL [Coreg] 25 mg PO BID 30 Days #60 tab 08/25/21 09/03/21 09/02/21 Rx hydrALAZINE [Apresoline TAB] 25 mg PO Q8HR #90 tablet 08/25/21 09/03/21 09/02/21 Rx Active Meds: Active Medications Acetaminophen (Acetaminophen 325 Mg Tab) 650 mg PO Q4H PRN PRN Reason: Pain MILD(1-3)/Fever >100.5/COOK Aspirin (Aspirin 81 Mg Tab Chew) 81 mg PO QDAY [facility] Last Admin: 09/03/21 09:00 Dose: 81 mg Atorvastatin Calcium (Atorvastatin 40 Mg Tab) 40 mg PO QHS [facility] Last Admin: 09/02/21 22:44 Dose: 40 mg Carvedilol (Carvedilol 25 Mg Tab) 25 mg PO BID [facility] Last Admin: 09/03/21 09:00 Dose: 25 mg Clopidogrel Bisulfate (Clopidogrel 75 Mg Tab) 75 mg PO QDAY [facility] Last Admin: 09/03/21 09:00 Dose: 75 mg Furosemide (Furosemide 20 Mg Tab) 20 mg PO QDAY [facility] Last Admin: 09/03/21 09:00 Dose: 20 mg Hydralazine HCl (Hydralazine 25 Mg Tab) 25 mg PO Q8HR [facility] Last Admin: 09/03/21 19:05 Dose: Not Given Hydromorphone HCl (Hydromorphone 1 Mg/1 Ml Inj) 0.5 mg IV Q3H PRN PRN Reason: Pain , Severe (7-10) Last Admin: 09/03/21 06:28 Dose: 0.5 mg Metoclopramide HCl (Metoclopramide 10 Mg/2 Ml Inj) 10 mg IV Q6H PRN PRN Reason: Nausea And Vomiting Ondansetron HCl (Ondansetron 4 Mg/2 Ml Inj) 4 mg IV Q8H PRN PRN Reason: Nausea And Vomiting Oxycodone/Acetaminophen (Oxycodone /Acetaminophen 5-325mg Tab) 1 tab PO Q6H PRN PRN Reason: Pain, Moderate (4-6) Sacubitril/Valsartan (Sacubitril/Valsartan 49-51 Mg Tab) 2 each PO BID [facility] Sodium Chloride (Sodium Chloride 0.9% 10 Ml Flush Syringe) 10 ml IV BID [facility] Last Admin: 09/03/21 11:26 Dose: Not Given Sodium Chloride (Sodium Chloride 0.9% 10 Ml Flush Syringe) 10 ml IV PRN PRN PRN Reason: LINE FLUSH Review of Systems All systems: negative (as per hpi;) Physical Examination - Vital Signs Vital Signs: Vital Signs Temp Pulse Resp BP Pulse Ox 97.8 F 78 18 169/91 97 09/02/21 16:09 09/02/21 16:09 09/02/21 16:09/02/21 16:09/02/21 16:09 - Physical Exam Narrative exam: Gen: nad, well-nourished; Head: normocephalic; Eyes: no gaze deviation; no ptosis; ENT: normal vocalization; CVS: warm and well-perfused; Pulm: no respiratory distress; GI: appears non-distended; Ext: no cyanosis appreciated at distal extremities; Skin: no acute rash at distal extremities; Heme: no pathologic ecchymosis appreciated at distal extremities; Neuro: alert, oriented to name, age, month, year, surroundings, no dysarthria, no aphasia, CN 2 - PERRL, visual witt grossly intact, CN 3, 4, 6 - EOMI, CN 5 - facial sensation symmetric to light touch, CN 7 - facial movement symmetric, CN 8 - hearing grossly intact, CN 9, 10 - uvula midline, CN 11 symmetric shoulder movement, CN 12 - tongue midline; Motor - at least 5-/5 at all exts and 4+/5 at RLE; Sensory - light touch decreased at RLE, Cerebellar - fnf intact & slight difficulty with right hts, Gait - deferred secondary to fall risk; NIHSS (1a.) Level of Consciousness:0 (1b.) LOC Questions:0 (1c.) LOC Commands:0 (2.) Best Gaze:0 (3.) Visual:0 (4.) Facial Palsy:0 (5a.) Motor Arm, Left:0 (5b.) Motor Arm, Right:0 (6a.) Motor Leg, Left:0 (6b.) Motor Leg, Right:0 (7.) Limb Ataxia:1 (8.) Sensory:1 (9.) Best Language:0 (10.) Dysarthria:0 (11.) Extinction and Inattention:0 NIHSS Total Score: 2 Results - Laboratory Findings CBC and BMP: 09/03/21 10:16 09/03/21 10:16 Abnormal Lab Findings: Abnormal Labs 09/02/21 09/02/21 09/03/21 16:17 20:19 10:16 RDW 13.0 L Dickinson % (Auto) 7.6 H Glucose 105 H POC Glucose 113 H CK-MB (CK-2) 5.2 H HDL Cholesterol 09/03/21 10:16 RDW Dickinson % (Auto) Glucose POC Glucose CK-MB (CK-2) HDL Cholesterol 39 L Assessment and Plan 61 yo, right-handed male with htn, cadx, heart failure, tobacco abuse, who presents with acute onset of right leg numbness ("coldness" per patient). 1. Acute Ischemic Stroke: ASA 325 mg PO qday, Plavix 75 mg po qday x21 days, MRI Brain wo contrast confirms acute infarction, CTA Head/Neck w/ & w/o contrast is unremarkable; TTEcho results pending, if negative, recommend MATTHEW / long-term cardiac monitoring; confirm LDL/TSH/Covid-19/UDS, telemetry, NIHSS q8 hours; permissive hypertension for 48 more hours and then aim for normotension. Statin therapy for a goal LDL of 70, when patient passes swallow evaluation. PT/OT evaluation. Long-term risk-factor modification, including a strict diet/exercise regimen for secondary stroke prophylaxis. Stroke education prior to discharge. 2. Hypertension - permissive hypertension x48 hours more and then normotension. 3. Right Leg Numbness - monitor clinically. 4. Unsteady Gait - pt/ot evaluation/monitoring. 5. Heart Failure - may cause cardioembolic infarctions especially if EF < 25%. 6. Tobacco Abuse - outpatient smoking cessation via pcp. Raimundo Pizarro MD Neurology [id number]
[2021-09-04] MEDS: SACUBITRIL/VALSARTAN 49-51 MG TAB PO SCH ×2 (00:49→11:00)
[2021-09-04] MEDS: hydrALAZINE 25 MG TAB PO SCH ×2 (06:16→14:00)
[2021-09-04] MEDS ORDERED: ASPIRIN 81 MG TAB CHEW PO SCH (07:35)
[2021-09-04] MEDS ORDERED: ASPIRIN 325 MG TAB PO SCH (10:00)
[2021-09-04] MEDS: CLOPIDOGREL 75 MG TAB PO SCH (11:00)
[2021-09-04] MEDS: FUROSEMIDE 20 MG TAB PO SCH (11:00)
[2021-09-04] MEDS: carvediloL 25 MG TAB PO SCH (11:00)
--- NOTE | 2021-09-04 11:34 | Discharge Summary ---
Providers - Providers Date of Admission: 09/02/21 18:47 Date of discharge: 09/04/21 Attending physician: ESAU SNIDER MD 09/03/21 06:59 Consult to Physician [CONS] Routine Comment: Consulting Provider: MELLO COFFMAN Physician Instructions: Reason For Exam: CVA/TIA 09/03/21 08:44 Occupational Therapy Evaluate and Treat [CONS] Routine Comment: Reason For Exam: Evaluate s/p stroke Physical Therapy Evaluation and Treat [CONS] Routine Comment: Reason For Exam: Evaluate s/p stroke Primary care physician: [employer] Hospitalization Reason for admission: Acute ischemic CVA Condition: Good Pertinent studies: Reviewed. Procedures: None. Hospital course: Patient 61-year-old male past medical history of CAD status post acute SD status post PCI, hypertension, chronic systolic heart failure, and tobacco dependence who presented with right leg numbness that occurred suddenly while reading his Bible. Patient endorses having word confusion and leg numbness prior to going to bed. Upon waking up the next morning, the word confusion had resolved; however, the right leg numbness continued. Patient presented to the ED hemodynamically stable and with full function of his right lower extremity. Patient was evaluated with CT head noncontrast that was unremarkable. Patient was not a candidate for tPA given the fact that he was outside of the window. Patient underwent MRI brain revealing "focal subacute ischemia in the left insular cortex and in the left posterior parietal internal and external border zone". Neurology was consulted for further management. Patient underwent TTE that was unremarkable for PFO. The patient was initiated on aspirin 325 mg daily and atorvastatin. Physical therapy and Occupational Therapy were consulted, and they recommended home with home PT/OT. Patient was counseled about the importance of medication compliance, and he expressed understanding. Patient will be discharged on aspirin 325 mg daily x30 days; after which, he will reduce his aspirin dosage to 81 mg daily. Patient will be referred to outpatient neurology for further management. Patient expresses understanding. Disposition: 01 HOME / SELF CARE / HOMELESS Final Discharge Diagnosis (Prints w/discharge instructions): Acute ischemic CVA, hypertension, hyperlipidemia, chronic CAD complicated by recent PCI, tobacco dependence. Time spent for discharge: 45 min Core Measure Documentation - Palliative Care Palliative Care/ Comfort Measures: Not Applicable - Core Measures Any of the following diagnoses?: stroke - Stroke Discharge Requirements Statin for LDL = or >70 mg/dl on DC: Yes Anticoag for atrial fib/atrial flutter: Not Applicable Antithrombotic for ischemic stroke: No Reason for no antithrombotic on DC: Not Indicated Exam - Constitutional Vitals: Temp Pulse Resp BP Pulse Ox 98.6 F 68 18 112/54 98 09/04/21 07:55 09/04/21 07:55 09/04/21 07:55 09/04/21 07:55 09/04/21 08:47 General appearance: Present: no acute distress - EENT Eyes: Present: PERRL, EOM intact ENT: hearing intact, clear oral mucosa, dentition normal - Neck Neck: Present: supple, normal ROM - Respiratory Respiratory effort: normal Respiratory: bilateral: CTA - Cardiovascular Rhythm: regular Heart Sounds: Present: S1 & S2 - Extremities Extremities: no ischemia, pulses intact, pulses symmetrical, No edema, normal temperature, normal color, Full ROM, abnormal (Decrease sensation and right lower leg and foot) Peripheral Pulses: within normal limits - Abdominal General gastrointestinal: Present: soft, non-tender, non-distended, normal bowel sounds Male genitourinary: Present: deferred - Rectal Rectal Exam: deferred - Integumentary Integumentary: Present: clear, warm, dry - Musculoskeletal Musculoskeletal: strength equal bilaterally - Psychiatric Psychiatric: appropriate mood/affect, intact judgment & insight, memory intact, cooperative - Neurologic Neurologic: CNII-XII intact, moves all extremities - Allied Health Allied health notes reviewed: nursing Plan Activity: no restrictions Diet: low salt Additional Instructions: Patient 61-year-old male past medical history of CAD status post acute SD status post PCI, hypertension, chronic systolic heart failure, and tobacco dependence who presented with right leg numbness that occurred suddenly while reading his Bible. Patient endorses having word confusion and leg numbness prior to going to bed. Upon waking up the next morning, the word confusion had resolved; however, the right leg numbness continued. Patient presented to the ED hemodynamically stable and with full fun ction of his right lower extremity. Patient was evaluated with CT head noncontrast that was unremarkable. Patient was not a candidate for tPA given the fact that he was outside of the window. Patient underwent MRI brain revealing "focal subacute ischemia in the left insular cortex and in the left posterior parietal internal and external border zone". Neurology was consulted for further management. Patient underwent TTE that was unremarkable for PFO. The patient was initiated on aspirin 325 mg daily and atorvastatin. Physical therapy and Occupational Therapy were consulted, and they recommended home with home PT/OT. Patient was counseled about the importance of medication compliance, and he expressed understanding. Patient will be discharged on aspirin 325 mg daily x30 days; after which, he will reduce his aspirin dosage to 81 mg daily. Patient will be referred to outpatient neurology for further management. Patient expresses understanding. Care Plan Goals: Patient is medically clear for discharge. Assessment: Patient 61-year-old male past medical history of CAD status post acute SD status post PCI, hypertension, chronic systolic heart failure, and tobacco dependence who presented with right leg numbness that occurred suddenly while reading his Bible. Patient endorses having word confusion and leg numbness prior to going to bed. Upon waking up the next morning, the word confusion had resolved; however, the right leg numbness continued. Patient presented to the ED hemodynamically stable and with full function of his right lower extremity. Patient was evaluated with CT head noncontrast that was unremarkable. Patient was not a candidate for tPA given the fact that he was outside of the window. Patient underwent MRI brain revealing "focal subacute ischemia in the left insular cortex and in the left posterior parietal internal and external border zone". Neurology was consulted for further management. Patient underwent TTE that was unremarkable for PFO. The patient was initiated on aspirin 325 mg daily and atorvastatin. Physical therapy and Occupational Therapy were consulted, and they recommended home with home PT/OT. Patient was counseled about the importance of medication compliance, and he expressed understanding. Patient will be discharged on aspirin 325 mg daily x30 days; after which, he will reduce his aspirin dosage to 81 mg daily. Patient will be referred to outpatient neurology for further management. Patient expresses understanding. Follow up with: PRIMARY MD ABIEL [Primary Care Provider] - 7 Days MODESTO ARTHUR MD [Staff Physician] - 7 Days THOM CAMERON MD [Staff Physician] - 10 Days Forms: Work/School Release Form Prescriptions: AtorvaSTATin [Lipitor] 80 mg PO QHS #30 tab Aspirin 325 mg PO QDAY #30 tablet
[2021-09-04 14:41] VITALS: BP 110/60
== END 2021-09-04 14:41 | disposition home or self-care (01) | DRG 65 ==
LOC: ED 14:51 → 4A 18:47
PROVIDERS: ADMIT Internal Medicine; ATTEND Student in an Organized Health Care Education/Training Program
DX: I63.9 Cerebral infarction, unspecified (principal); G45.8 Other transient cerebral ischemic attacks and related syndromes; I50.22 Chronic systolic (congestive) heart failure; I25.10 Atherosclerotic heart disease of native coronary artery without angina pectoris; I11.0 Hypertensive heart disease with heart failure; K21.9 Gastro-esophageal reflux disease without esophagitis; I25.2 Old myocardial infarction; Z87.891 Personal history of nicotine dependence; E78.2 Mixed hyperlipidemia
CPT/HCPCS: 36415; 70450; 70496; 70498; 70551; 71045; 80053; 80061; 82550; 82553; 82962; 83036; 84484; 85025; 85610; 85670; 85730; 93005; 93308; 93321; 93325; 96361; 96374; G0378; J1170; J7050; Q9967